=== PATIENT | female | born 1930 | race African-American/Black ===

== ENCOUNTER 2017-04-29 16:45 | Inpatient (IN) | payer MEDICARE, MEDICAID ==
[2017-04-29 18:04] LABS: Hemoglobin 10.7 g/dL (12.0-16.0); Mean Corpuscular Hemoglobin 27.1 pg (27.0-31.0); Mean Corpuscular Volume 84.6 fl (81.0-99.0); RBC Distribution Width 12.7 % (11.5-14.5); Red Blood Cell (RBC) Count 3.97 mill/uL (4.20-5.40); White Blood Cell (WBC) Count 3.7 thou/uL (4.8-10.8)
[2017-04-29 18:25] LABS: #Lymphocytes 0.6 thou/uL (1.20-3.40); #Monocytes 0.3 thou/uL (0.11-0.59); #Neutrophils 2.8 thou/uL (1.40-6.50); %Eosinophils 0.3 % (0.0-10.0); %Lymphocytes 16.2 % (21.0-51.0); %Neutrophils 76.6 % (42.0-75.0); Hypochromia SLIGHT = 6-15 cells (100X) (0-5/hpf); MDiff Complete? YES; Mean Platelet Volume 10.6 fL (7.4-10.4); Ovalocytes SLIGHT = 2-5 cells (100X) (0-1/hpf); PLT Morphology Comment Appears Decreased; Platelet Count 96 thou/uL (130-400)
[2017-04-29 18:31] LABS: Anion Gap 13 mmol/L (10-20); BUN (Urea Nitrogen) 52 mg/dL (9.8-20.1); Calc. Creatinine Clearance 0 mL/min (70-130); Calcium 9.3 mg/dL (7.8-10.44); Carbon Dioxide 23 mmol/L (23-31); Chloride 98 mmol/L (98-107); Estimated GFR-MDRD 41; Glucose 137 mg/dL (83-110); Potassium 4.3 mmol/L (3.5-5.1); Sodium 130 mmol/L (136-145)
[2017-04-29 18:32] LABS: CKMB 5.8 ng/mL (0-6.6); Troponin I 0.049 ng/mL (< 0.028)
[2017-04-29] MEDS ORDERED: Dextrose 50% Abboject 50 ML SYRINGE SLOW IVP PRN (19:00)
[2017-04-29] MEDS ORDERED: Ondansetron HCl/PF 4 MG/2 ML Vial IVP PRN (19:00)
[2017-04-29] MEDS ORDERED: Dextrose 5% in Water 1,000 ML IV PRN (19:00)
[2017-04-29] MEDS ORDERED: hydrALAZINE 20 MG/ML VIAL SLOW IVP PRN (19:00)
[2017-04-29] MEDS ORDERED: Ondansetron ODT 4 MG TAB PO PRN (19:00)
[2017-04-29] MEDS ORDERED: traMADol HCl 50 MG TAB PO PRN (19:06)
[2017-04-29] MEDS ORDERED: traMADol HCl 50 MG TAB PO SCH (19:15)
[2017-04-29] MEDS ORDERED: Fentanyl 100 MCG/2 ML VIAL ONE (19:43)
--- NOTE | 2017-04-29 19:57 | CT ---
CT PELVIS NONCONTRAST 04/29/17 HISTORY: Fall. Pelvic injury. FINDINGS: Mildly comminuted nondisplaced fracture of the anterior wall of the right acetabulum is apparent. Min imally displaced fracture of the left pubic rami extends to the far medial margin of the superior pub ic ramus to the pubic symphysis and obliquely through the left inferior pubic ramus. There is one richar f shaft width displacement of a right inferior pubic ramus fracture. Degenerative changes involving the hips. There is calcification in the arterial structures. IMPRESSION: 1. Fractures involving the right and left pubic rami and anterior wall right acetabulum, as deta iled above. 2. Atherosclerosis. POS: [facility]
--- NOTE | 2017-04-29 20:31 | RAD ---
CHEST ONE VIEW 04/29/17 HISTORY: Chest pain. Pelvic fractures. Fall. FINDINGS: No comparison. The cardiac silhouette and pulmonary vasculature are unremarkable. Mediastinum is midline with aortic calcification. Lungs are hyperinflated. Old injury of the left humeral neck is suspected. No evidenc e of pneumothorax. A nondisplaced fracture involves the posterolateral aspect of the right seventh ri b. emergency operator leads overlie the chest. IMPRESSION: 1. Right rib fracture. No evidence of pneumothorax. 2. COPD. 3. Atherosclerosis. POS: [facility]
--- NOTE | 2017-04-29 21:07 | HP ---
DATE OF ADMISSION: 04/29/2017 ATTENDING: Dr. Rubin Tamez. CONSULTING PHYSICIAN: Dr. Dave Finney. CHIEF COMPLAINT: Evaluation of hip pain, status post fall. HISTORY OF PRESENT ILLNESS: The patient is an 86-year-old female who reportedly slipped on the floor yesterday. She denies having any loss of consciousness. She denies head injury. She reports landing on her side and being taken by her son to [place], where imaging revealed a single-rib fracture. Patient was discharged home and awoke this morning being unable to walk. She was brought to the [place] ED by family and found to have bilateral pubic rami fractures and right acetabular fracture. Orthopedic Surgery was consulted and trauma services asked to admit. Currently, the patient reports that her pain is 4/10, worse on the right. She is unable to move her legs without significant difficulty and pain. She denies radiating pain. She describes the pain as dull and achy. PAST MEDICAL HISTORY: Significant for hypertension and atrial fibrillation on warfarin. HOME MEDICATIONS: The only home medication reported was warfarin. Patient unable to report any other home medications. PAST SURGICAL HISTORY: Patient had an open reduction and internal fixation of right clavicle fracture, some years ago. The date is unclear. No other previous surgeries were reported. FAMILY HISTORY: Noncontributory. SOCIAL HISTORY: Patient denies ethyl alcohol use. She does report a remote 30- pack-year history of smoking, but quit 15 years ago. She does not do drugs. Lives with her son in a 1-story dwelling. ALLERGIES: Patient does not report any known drug allergies. REVIEW OF SYSTEMS: A 10-point review of systems was significant for the following occasional headaches, cataracts, shortness of breath occasionally, occasional lightheadedness, urinary frequency, and muscle cramps. PHYSICAL EXAMINATION: VITAL SIGNS: BP 139/58, pulse 70, respirations 18, temperature 97.9, O2 sat 98 % on room air. GENERAL APPEARANCE: Patient is an elderly -Trist[place] female resting in bed in no acute distress. HEENT: She is normocephalic and atraumatic. Eyes, her pupils are unequal. Her right pupil is oblong in shape, but reactive to light. Her left pupil is round approximately 2 mm and reactive to light as well. All extraocular muscles are intact. She has a prominent arcus senilis bilaterally. Ears, her external auditory canals are atraumatic. Nose, her nares are patent without blood or discharge. Oropharynx, her dentition is intact. Oropharynx is pink and moist without trauma. NECK: Her trachea is midline. She has no tenderness. RESPIRATORY: She has clear breath sounds bilaterally with normal effort. CARDIOVASCULAR: She has a regular rate and rhythm with normal S1 and S2 and no murmurs, gallops, or rubs. Her radial and distal pulses are both 2+ bilaterally. ABDOMEN: She is soft, nontender, nondistended. Her bowel sounds are somewhat hypoactive. EXTREMITIES: She is neurovascularly intact x4 and moves all extremities appropriately. Her physicians and surgeons strength is 5/5 bilaterally in her upper extremities, great toe strength is 5/5 bilaterally. NEUROLOGIC: Patient is alert and oriented x3. She does appear to have some mild cognitive impairment. Her GCS is 15. LABORATORY FINDINGS: Cardiac panel: CK-MB 5.8, troponin I 0.049. Chemistry: Sodium 130, potassium 4.3, chloride 98, bicarbonate 23, BUN 52, creatinine 1.25 , glucose 137, calcium 9.3. Hematology: White blood cells 3.7, hemoglobin 10.7 , hematocrit 33.6, platelets 96. RADIOGRAPHIC FINDINGS: Chest x-ray does appear to show a single right rib fracture. No other acute processes identified by my read. Official read pending. CT of the pelvis shows a left and right pubic rami fracture and right acetabular fracture. Official read also pending. ASSESSMENT AND PLAN: 1. Status post fall. 2. Bilateral pubic rami fractures. 3. Right acetabular fracture. 4. Elevated troponins. 5. Elevated creatinine. PLAN: Patient's fractures are nonoperative per Orthopedic consultation. Patient will be admitted to telemetry for monitoring given her elevated cardiac enzymes. She will be given fluids, and NSAIDs will be withheld while we tracked her kidney function. This patient will likely be a rehab candidate, so rehab screen will be ordered and PT and OT will be requested to help her with mobilization. Case management will be involved in discharge planning. This patient was discussed over the phone with Dr. Rubin Tamez who agrees with this assessment and plan. [facility]
[2017-04-29] MEDS: Acetaminophen 500 MG TAB PO SCH (21:40)
[2017-04-29 21:52] LABS: Troponin I 0.048 ng/mL (< 0.028)
[2017-04-30 00:40] LABS: CKMB 5.1 ng/mL (0-6.6); Troponin I 0.063 ng/mL (< 0.028)
[2017-04-30] MEDS: traMADol HCl 50 MG TAB PO SCH ×3 (00:58→12:42)
[2017-04-30 01:14] VITALS: BMI 20.4
[2017-04-30] MEDS: Acetaminophen 500 MG TAB PO SCH ×3 (03:18→14:53)
[2017-04-30 05:56] LABS: #Eosinphils 0.1 thou/uL (0.0-0.7); #Lymphocytes 0.6 thou/uL (1.20-3.40); #Monocytes 0.3 thou/uL (0.11-0.59); #Neutrophils 2.5 thou/uL (1.40-6.50); %Basophils 0.4 % (0.0-1.0); %Eosinophils 1.5 % (0.0-10.0); %Lymphocytes 18.1 % (21.0-51.0); %Monocytes 8.3 % (0.0-10.0); %Neutrophils 71.7 % (42.0-75.0); Hemoglobin 9.7 g/dL (12.0-16.0); INR-International Normal Ratio 3.4; Mean Corpuscular HGB CONC 31.8 g/dL (32.0-36.0); Mean Corpuscular Hemoglobin 27.2 pg (27.0-31.0); Mean Corpuscular Volume 85.4 fl (81.0-99.0); Mean Platelet Volume 10.9 fL (7.4-10.4); Platelet Count 99 thou/uL (130-400); Prothrombin Time 35.8 SEC (12.0-14.7); RBC Distribution Width 12.6 % (11.5-14.5); Red Blood Cell (RBC) Count 3.55 mill/uL (4.20-5.40); White Blood Cell (WBC) Count 3.5 thou/uL (4.8-10.8)
[2017-04-30 06:17] LABS: Anion Gap 13 mmol/L (10-20); BUN (Urea Nitrogen) 46 mg/dL (9.8-20.1); Calc. Creatinine Clearance 37 mL/min (70-130); Calcium 8.6 mg/dL (7.8-10.44); Carbon Dioxide 21 mmol/L (23-31); Chloride 98 mmol/L (98-107); Estimated GFR-MDRD 55; Glucose 114 mg/dL (83-110); Magnesium 2.2 mg/dL (1.6-2.6); Phosphorus 3.4 mg/dL (2.3-4.7); Potassium 3.5 mmol/L (3.5-5.1); Sodium 128 mmol/L (136-145)
[2017-04-30 06:20] LABS: CKMB 4.1 ng/mL (0-6.6); Troponin I 0.061 ng/mL (< 0.028)
[2017-04-30] MEDS ORDERED: Sodium Chloride 0.9% 1,000 ML IV SCH (06:45)
--- NOTE | 2017-04-30 11:40 | CON ---
DATE OF CONSULTATION: 04/30/2017 CONSULTING PHYSICIAN: Dr. Dave Finney HISTORY OF PRESENT ILLNESS: We were asked by Trauma and ER to see the patient. The patient fell yes terday and was seen at [facility] and found to have a fractured rib. She awoke the next morning a nd was unable to walk. Family was concerned and brought her to [facility] and imaging found she had pelvic fractures. I spoke with family at the bedside and the patient. She has fallen 3-4 times in t he last couple of years. Once with a fracture, a couple times with just bruises, now this time with rib and a pelvis fractures. She denies any loss of consciousness. She did not hit her head. She th inks that she just had on some socks without on drapery sewer hand on the bottom and she slipped and fell. She saeed s not had any bone health workup in the past that she or her family can recall. PAST MEDICAL HISTORY: Positive for hypertension and atrial fibrillation. CURRENT MEDICATIONS: Warfarin, metoprolol, nifedipine. ALLERGIES: No known drug allergies. FAMILY HISTORY: Noncontributory. PAST SURGICAL HISTORY: ORIF right clavicle fracture. SOCIAL HISTORY: No alcohol use, quit smoking 15 years ago. REVIEW OF SYSTEMS: She is a little short of breath due to the rib fracture, but she is using her inc entive spirometry well and then she just has pain in her pelvis with movement. No movement she is ab le to tolerate the pain well. PHYSICAL EXAMINATION: GENERAL: Well-nourished, well-developed, very sweet female resting in bed with family at the bedside , in no acute distress. HEENT: Normal exam. Face symmetric, tongue midline. NECK: Supple, trachea midline. EXTREMITIES: Upper extremities; equal size, shape symmetry, normal bulk and tone. Sensation is inta ct. Lower extremity; she is moving both lower extremities fair. Rocking her pelvis does cause signi ficant pain. Lower extremities, sensations equal. ASSESSMENT: 1. Fall. 2. Bilateral pubic rami fractures with a right acetabular fracture. PLAN: Currently, the patient needs no orthopedic intervention. We will allow her to ambulate with P T, OT, weightbearing as tolerated. I do think the patient would be a good rehab or skilled candidate to get over this evolution and pain control and the family agrees. We will check in on patient whil e she is in the hospital and if further aches and pains arise, we will address those as they come.
[2017-04-30 16:49] VITALS: BP 124/62; TEMP 97
[2017-04-30 17:09] LABS: Bilirubin Negative (Negative); Blood, Urine Small (Negative); Clarity CLOUDY (Clear); Glucose, Urine (Dipstick) Negative (Negative); Leukocyte Large (Negative); Nitrite Negative (Negative); Protein, Urine (Dipstick) Negative (Neg-Trace); Specific Gravity, Urine 1.015 (1.002-1.036); Urobilinogen 0.2 mg/dL (0.2-1.0); pH, Urine 5.5 (5.0-9.0)
[2017-04-30 17:19] LABS: Bacteria/HPF 4+ HPF (None Seen); Hyaline Casts/LPF 4-6 HYALINE CAST LPF (0-3 Hyaline); Pathc Cast-AUWi Flag 0.54 (0-2.49); RBC/HPF 0-3 HPF (0-3); Squamous Epithelial None Seen HPF (0-3)
--- NOTE | 2017-05-01 02:18 | DIS ---
DATE OF ADMISSION: 04/29/2017 DATE OF DISCHARGE: 04/30/2017 ADMITTING PHYSICIAN: Dr. Rubin Tamez. DISCHARGING PHYSICIAN: Dr. Rubin Tamez. CONSULTING PHYSICIAN: Dr. Dave Finney. CHIEF COMPLAINT: Evaluation of hip pain, status post fall. HOSPITAL COURSE: Patient is an 86-year-old female who reportedly slipped on the floor, landing on he r side. She was initially taken to [place], where she was diagnosed with a single right rib fracture. Patient was having if difficulty ambulating afterwards in the next morning awoke and found herself unable to walk due to pain. She was brought to [place] ED by family and found to have bi lateral pubic rami fractures and right acetabular fracture. Orthopedic surgery was consulted and tra [facility] service was asked to admit. Ultimately, the patient's orthopedic injuries were determined to be nonoperative. The patient also had a history of chronic atrial fibrillation on warfarin. She presen becka to the ED with elevated troponin of 0.049. These were trended serial and are reached to max valu e at 0.063 approximately 6 hours after the initial lab draw. Patient was admitted to telemetry [facility] for monitoring and pain control as well. Patient was discharged to inpatient rehab in [facility] on 04/30/2017. However, it was reported that patient had some urinary retention after discha rge orders that had already been placed and transportation was already on the scene to transfer the p atient to rehabilitation. Patient was ultimately determined that she would need a Manzano and urinalys is revealed that she had a UTI. This was communicated to the staff at [facility] who ag melanie to place the Manzano over there. DISCHARGE MEDICATIONS: Patient was discharged with all of her inpatient medications except warfarin. Dr. Tamez discussed this case over the phone with her primary care physician, Dr. Rivas Yañez at the [facility]. The agreement was that the risk of catastrophic bleeding with subsequent falls outw eighed the risk of blood clots with discontinued anticoagulation. ACTIVITY INSTRUCTIONS: Patient has orthopedic limitations including weightbearing as tolerated on bi lateral lower extremities. NOURISHMENT INSTRUCTIONS: Patient was discharged with a regular diet. THERAPY INSTRUCTIONS: Patient to receive occupational therapy, physical therapy, and outpatient card iac rehabilitation. FOLLOWUP INSTRUCTIONS: Patient is to follow up with her primary care physician in 7 days after disch arge from rehabilitation. The patient also instructed to follow up with Dr. Dave Finney in 3-4 weeks after discharge from rehabilitation. This patient was seen and examined along with Dr. Rubin Tamez who agrees with this discharge plan.
--- NOTE | 2017-05-02 13:10 | EKG ---
Test Reason : Blood Pressure : / mmHG Vent. Rate : 073 BPM Atrial Rate : 073 BPM P-R Int : 156 ms QRS Dur : 100 ms QT Int : 442 ms P-R-T Axes : 067 -09 086 degrees QTc Int : 486 ms Normal sinus rhythm Normal ECG Baseline Artifact Present Confirmed by GIANLUCA ANN ([id number]), multimedia editor KURT PUGH ([id number]) on 05/02/2017 1:09:31 PM Referred By: SETH Confirmed By:GIANLUCA ANN
== END 2017-04-30 16:10 | DRG 535 ==
LOC: ERS 16:45 → 2NO 19:12
PROVIDERS: ADMIT Specialist; ATTEND Specialist
DX: S32.501A Unspecified fracture of right pubis, initial encounter for closed fracture (principal); S32.411A Displaced fracture of anterior wall of right acetabulum, initial encounter for closed fracture; I48.2 Chronic atrial fibrillation; N39.0 Urinary tract infection, site not specified; S22.31XA Fracture of one rib, right side, initial encounter for closed fracture; S32.502A Unspecified fracture of left pubis, initial encounter for closed fracture; Z79.01 Long term (current) use of anticoagulants; I10 Essential (primary) hypertension; R94.4 Abnormal results of kidney function studies
CPT/HCPCS: 36415; 71045; 72192; 80048; 81001; 82553; 83735; 84100; 84484; 85025; 85610; 86850; 86900; 86901; 87077; 87086; 87186; 93005; 94640; 96374; G8978-GP-CM; G8979-GP-CI; G8987-GO-CL; G8988-GO-CJ; J2405; J3010; J7620

== ENCOUNTER 2017-05-01 18:26 | Emergency (ER) | payer MEDICARE ==
[~2017-05-01 18:26] MED LIST: ISOVUE-370 76%-LOCM 1 ML ONE
[2017-05-01 19:05] LABS: #Lymphocytes 0.4 thou/uL (1.20-3.40); #Monocytes 0.3 thou/uL (0.11-0.59); #Neutrophils 7.2 thou/uL (1.40-6.50); %Lymphocytes 5.3 % (21.0-51.0); %Monocytes 3.8 % (0.0-10.0); %Neutrophils 90.9 % (42.0-75.0); Hemoglobin 9.9 g/dL (12.0-16.0); Mean Corpuscular HGB CONC 33.1 g/dL (32.0-36.0); Mean Corpuscular Hemoglobin 27.6 pg (27.0-31.0); Mean Corpuscular Volume 83.4 fl (81.0-99.0); Mean Platelet Volume 10.1 fL (7.4-10.4); Platelet Count 99 thou/uL (130-400); RBC Distribution Width 12.8 % (11.5-14.5)
[2017-05-01 19:33] LABS: ALT (SGPT) 24 U/L (8-55); AST (SGOT) 59 U/L (5-34); Albumin 3.7 g/dL (3.4-4.8); Alkaline Phosphatase 50 U/L (40-150); Anion Gap 17 mmol/L (10-20); BUN (Urea Nitrogen) 31 mg/dL (9.8-20.1); Bilirubin, Total 0.5 mg/dL (0.2-1.2); CK (CPK) 1166 U/L (29-168); CKMB 2.2 ng/mL (0-6.6); Calc. Creatinine Clearance 0 mL/min (70-130); Calcium 8.5 mg/dL (7.8-10.44); Carbon Dioxide 20 mmol/L (23-31); Chloride 99 mmol/L (98-107); Estimated GFR-MDRD 65; Globulin 3.6 g/dL (2.4-3.5); Glucose 219 mg/dL (83-110); Magnesium 1.8 mg/dL (1.6-2.6); Potassium 4.1 mmol/L (3.5-5.1); Protein, Total 7.3 g/dL (6.0-8.3); Sodium 132 mmol/L (136-145)
[2017-05-01] MEDS ORDERED: Azithromycin 500 MG VIAL ONE (22:02)
--- NOTE | 2017-05-01 22:21 | RAD ---
PORTABLE AP CHEST X-RAY 05/01/17 HISTORY: Chest pain. Syncope episode this afternoon. Atrial fibrillation with RVR. COMPARISON: 04/29/17 FINDINGS: The cardiac silhouette is magnified by projection. Pulmonary vasculature is within normal limits. The re is mild increased interstitial densities bilaterally, some of which is related to chronic lung cody nge, there is greater hazy density at the right lung base which could be related to developing area o f pneumonia/pneumonitis. Fractures involving the posterior right sixth and seventh ribs is again pres ent. Diffuse osteopenia is noted. Vascular calcification seen in the thoracic aorta. IMPRESSION: 1. Mild increased density at the right lung base which may be related to developing pneumonia or pneumonitis. Followup to resolution is recommended. 2. Fractures involving the posterior right sixth and seventh ribs. 3. Diffuse osteopenia. POS: [facility]
--- NOTE | 2017-05-01 23:29 | CT ---
CT ANGIOGRAM THORAX WITH IV CONTRAST AND 3D RECONSTRUCTIONS 05/01/17 HISTORY: Dyspnea, syncope. Recent fall with hip and rib fractures. Increased heart rate and atrial fibrillatio n with RVR. COMPARISON: None available. FINDINGS: The left lobe of the thyroid gland is heterogeneous in appearance and enlarged measuring 3.4 cm x 2.6 cm. This may represent an enlarged heterogeneous thyroid nodule or multiple nodules within the left lobe of the thyroid gland. This cannot be further characterized on this exam. No filling defects are seen in the pulmonary arteries to suggest a pulmonary embolus. Vascular calcifications are seen in the coronary arteries as well as the thoracic aorta. The thoracic aorta is normal in caliber without evidence of an aortic dissection. There is consolidation involving a large portion of the right lower lobe which may represent pneumoni a or aspiration pneumonitis. There is increased soft tissue density in the right hilar region likely related to reactive lymphadenopathy. There are filling defects within several right lower lobe bronch i. Mild increased interstitial densities are seen in the posterior aspect of the right upper lobe which could be related to infectious or inflammatory process. Emphysematous changes are seen within the lungs bilaterally. There is pleural and parenchymal scarrin g at the left lung apex. Minimal atelectasis is present at the left lung base. There is a parenchymal density seen at the lateral aspect left lung base which could be related to either focal area of pne umonitis or atelectasis. The upper abdomen demonstrates grossly normal CT appearance. There are minimally displaced fractures involving the lateral right 5th through 8th ribs. IMPRESSION: 1. Enlarged heterogeneous left lobe of the thyroid gland. This may represent multiple nodules in the left lobe of the thyroid gland versus a large heterogeneous mass. Nonemergent thyroid ultrasound is suggested for further evaluation as clinically indicated. 2. Consolidation in the right lower lobe with associated interstitial densities. These findings may be related to pneumonia. Aspiration pneumonitis is a possibility. There are filling defects withi n several right lower lobe bronchi which suggests possibility of aspiration. 3. COPD and chronic lung changes. 4. No CT evidence of a pulmonary embolus. 5. Vascular calcifications in the thoracic aorta. 6. Fractures involving the right lateral 5th through 8th ribs. 1. POS: [facility]
--- NOTE | 2017-05-02 15:37 | EKG ---
Test Reason : Blood Pressure : / mmHG Vent. Rate : 108 BPM Atrial Rate : 108 BPM P-R Int : 156 ms QRS Dur : 086 ms QT Int : 336 ms P-R-T Axes : 053 -16 052 degrees QTc Int : 450 ms Sinus tachycardia Nonspecific ST and T wave abnormality Abnormal ECG Confirmed by NIKOLE VALDIVIA, ASHER Marcial ([id number]), fashion editor KURT PUGH ([id number]) on 05/02/2017 3:37:52 PM Referred By: Confirmed By:ASHER AGUSTIN MD
== END 2017-05-02 02:26 ==
LOC: ERS 18:26
DX: J18.9 Pneumonia, unspecified organism (principal); I48.91 Unspecified atrial fibrillation; I10 Essential (primary) hypertension; K59.00 Constipation, unspecified; Z87.891 Personal history of nicotine dependence; Z79.891 Long term (current) use of opiate analgesic; Z79.899 Other long term (current) drug therapy
CPT/HCPCS: 36415; 71045; 71275; 82553; 83735; 83880; 84484; 85379; 87040; 93005; J0456; J0696

== ENCOUNTER 2017-05-05 10:24 | Inpatient (IN) | payer MEDICARE ==
[2017-05-05 11:29] LABS: INR-International Normal Ratio 2.5; Prothrombin Time 28.1 SEC (12.0-14.7)
[2017-05-05 11:32] LABS: ALT (SGPT) 48 U/L (8-55); AST (SGOT) 67 U/L (5-34); Albumin 3.1 g/dL (3.4-4.8); Alkaline Phosphatase 54 U/L (40-150); Anion Gap 14 mmol/L (10-20); BUN (Urea Nitrogen) 24 mg/dL (9.8-20.1); Bilirubin, Total 0.7 mg/dL (0.2-1.2); CK (CPK) 1152 U/L (29-168); Calc. Creatinine Clearance 0 mL/min (70-130); Calcium 8.8 mg/dL (7.8-10.44); Carbon Dioxide 22 mmol/L (23-31); Chloride 103 mmol/L (98-107); Estimated GFR-MDRD 82; Globulin 3.7 g/dL (2.4-3.5); Glucose 147 mg/dL (83-110); PTT 56.8 SEC (22.9-36.1); Potassium 4.2 mmol/L (3.5-5.1); Protein, Total 6.8 g/dL (6.0-8.3); Sodium 135 mmol/L (136-145)
[2017-05-05 11:47] LABS: #Lymphocytes 1.1 thou/uL (1.20-3.40); #Monocytes 0.9 thou/uL (0.11-0.59); #Neutrophils 12.5 thou/uL (1.40-6.50); %Basophils 0.2 % (0.0-1.0); %Eosinophils 0.1 % (0.0-10.0); %Lymphocytes 7.3 % (21.0-51.0); %Monocytes 6.2 % (0.0-10.0); %Neutrophils 86.2 % (42.0-75.0); Hemoglobin 5.6 g/dL (12.0-16.0); Mean Corpuscular HGB CONC 32.4 g/dL (32.0-36.0); Mean Corpuscular Hemoglobin 27.8 pg (27.0-31.0); Mean Corpuscular Volume 85.9 fl (81.0-99.0); Mean Platelet Volume 8.4 fL (7.4-10.4); Platelet Count 282 thou/uL (130-400); RBC Distribution Width 13.1 % (11.5-14.5); Red Blood Cell (RBC) Count 2.01 mill/uL (4.20-5.40); White Blood Cell (WBC) Count 14.5 thou/uL (4.8-10.8)
[2017-05-05 12:09] LABS: CKMB 6.5 ng/mL (0-6.6); Troponin I 0.022 ng/mL (< 0.028)
[2017-05-05] MEDS ORDERED: Piperacillin/Tazobactam 4.5 GM in Sodium Chloride 0.9% 100 ML IVPB ONE (12:45)
[2017-05-05] MEDS ORDERED: Acetaminophen 325 MG TAB PO PRN (13:22)
[2017-05-05] MEDS ORDERED: Milk Of Magnesia 30 ML UDCUP PO PRN (13:22)
[2017-05-05] MEDS ORDERED: HYDROcodone/Acetaminophen 5/325 mg Tablet PO PRN (13:22)
[2017-05-05] MEDS ORDERED: Ondansetron HCl/PF 4 MG/2 ML Vial IVP PRN (13:22)
[2017-05-05] MEDS ORDERED: Fleet Enema 133 ML BOT PR PRN (13:22)
[2017-05-05] MEDS ORDERED: Artificial Tears 18 DROP/0.9 ML EA EYE PRN (13:22)
[2017-05-05] MEDS ORDERED: Eucerin (Mineral Oil/Petrolatum,White) 30 gm Jar TOP PRN (13:22)
[2017-05-05] MEDS ORDERED: Diabetic Tussin 200 MG/10 ML UDCUP PO PRN (13:22)
[2017-05-05] MEDS ORDERED: Chloraseptic Spray 180 ml Bottle PO PRN (13:22)
[2017-05-05] MEDS ORDERED: Mag-Al 1200 mg/1200 mg/30 ML UDCUP PO PRN (13:22)
[2017-05-05] MEDS ORDERED: Bisacodyl 10 MG SUPP PR PRN (13:22)
[2017-05-05] MEDS ORDERED: Ondansetron ODT 4 MG TAB PO PRN (13:22)
[2017-05-05] MEDS ORDERED: Senokot 8.6 MG TAB PO PRN (13:22)
[2017-05-05] MEDS ORDERED: hydrALAZINE 20 MG/ML VIAL SLOW IVP PRN (13:22)
[2017-05-05] MEDS ORDERED: Sodium Chloride 0.65% Nasal 44 ML BOT EA NARE PRN (13:22)
[2017-05-05] MEDS ORDERED: Loratadine 10 MG TAB PO PRN (13:22)
[2017-05-05] MEDS ORDERED: Phytonadione 10 MG/ML AMP SC SCH ×2 (13:30→15:45)
[2017-05-05] MEDS ORDERED: Digoxin 0.5 MG/2 ML AMP SLOW IVP SCH (13:45)
--- NOTE | 2017-05-05 14:15 | CT ---
CT ABDOMEN AND PELVIS WITH CONTRAST: Date: 05/05/17 Multiple axial tomograms obtained through the abdomen and pelvis with IV enhancement. HISTORY: Anemia. Post pelvic fracture. COMPARISON: Comparison made to CT of pelvis dated 04/29/17, which revealed fractures involving the anterior right acetabulum and bilateral rami fractures. Also, comparison to chest CT of 05/01/17, which revealed de nse consolidation in the right lung base. That exam also revealed right lateral rib fractures of ribs 5-8. FINDINGS: Images through the lung bases again show dense consolidation in the posterior right lung base, simila r to the 05/01/17 exam. Mild atelectatic change in the posterior left lung base. Liver, spleen, and pancreas are unremarkable. Kidneys are unremarkable. Small bowel loops are normal. Stool throughout the colon. Aorta normal caliber with atherosclerotic calcification. Gallbladder is mildly distended with mild increased gallbladder density. This could represent dense s ludge. No focal fluid collection or hematoma seen in the abdomen or pelvis. Images through the pelvis show an unremarkable uterus and adnexa for age. The bladder has a Manzano cat heter in place, but is mildly distended, and the catheter may not be draining adequately. Fracture of the anterior right acetabulum is again noted without significant change from prior exam. Fracture of the right inferior ramus shows no significant change. Fracture of the left superior and i nferior rami show no significant change. There is no evidence of muscular hematoma surrounding any of these pelvic fractures. IMPRESSION: 1. Dense consolidation in the posterior right lung base, similar to exam of 05/01/17. 2. No evidence of focal hematoma or fluid collection. 3. Gallbladder is mildly distended with mild increased gallbladder density. 4. The pelvic fractures are again seen without significant interval change in appearance. POS: [facility]
--- NOTE | 2017-05-05 14:28 | HP ---
PRIMARY CARE PHYSICIAN: Dr. Rivas Yañez in [place]. REASON FOR ADMISSION: Severe symptomatic anemia, GI bleed, and pneumonia. HISTORY OF PRESENT ILLNESS: An 86-year-old female who lives at home with her son. She has underlyin g history of paroxysmal atrial fibrillation and she is on chronic anticoagulation with warfarin thera py as well as aspirin. She had episode of fall at home on 04/28/2017. The patient had syncopal epis ode as well which was witnessed at home. Patient was recovered consciousness, but she was very weak. She fell down and hurt on her right side of chest as well as on her hip. She was taken to local em ergency room on that day and patient was diagnosed with rib fracture. Patient was discharged from [facility] Emergency Room to home, but at home she was having a lot of pain in her rib as well as on hip and she was having difficulty ambulating and she was feeling very weak and that is why next day, patient's family member brought her to [facility] and patient had CT pelvis and f ound with pubic rami fracture. The patient was not meeting criteria for admission and patient was di scharged from emergency room to rehab on 04/29/2017. Patient was discharged to rehab and subsequentl y she came back on next day with a syncopal episode at rehab and she was having chest pain and that i s why in the emergency room, CT angio was done which was negative for pulmonary embolism, but it did show consolidation on the right lower lobe and patient was started on antibiotic therapy at [facility]. Last night, the patient was having overall generalized weakness. She was not able to swallow and selwyn t is why speech therapy was consulted. When speech therapy came and they did routine blood test toda y and her hemoglobin was found 5.6 and that is why she was sent to emergency room again today for jana luation. Prior to fall, patient was able to function very well without any problem. She had black tarry diarr hea on 04/29/2017, which was also noticed by patient's another son at home. Since then, patient does not have any bowel movement and wanted to rehabilitation. The patient does have epigastric pain. S he does not have any hematemesis or nausea or vomiting, but her appetite is reduced lately. REVIEW OF SYSTEMS: The following complete review of systems was negative, unless otherwise mentioned in the HPI or below: Constitutional: Weight loss or gain, ability to conduct usual activities. Skin: Rash, itching. Eyes: Double vision, pain. ENT/Mouth: Nose bleeding, neck stiffness, pain, tenderness. Cardiovascular: Palpitations, dyspnea on exertion, orthopnea. Respiratory: Shortness of breath, wheezing, cough, hemoptysis, fever or night sweats. Gastrointestinal: Poor appetite, abdominal pain, heartburn, nausea, vomiting, constipation, or diarr hea. Genitourinary: Urgency, frequency, dysuria, nocturia. Musculoskeletal: Pain, swelling. Neurologic/Psychiatric: Anxiety, depression. Allergy/Immunologic: Skin rash, bleeding tendency. Please see my HPI for pertinent positive and negative. All other review of systems reviewed and nega tive except as mentioned in the HPI. ALLERGIES: No known drug allergy. CURRENT HOME MEDICATIONS: Aspirin 81 mg p.o. daily, Toprol-XL 50 mg p.o. daily, Procardia-XL 60 mg p .o. daily, tramadol p.r.n. basis. Patient was on warfarin prior to admission, but that medication wa s discontinued since she was at rehab. PAST MEDICAL HISTORY: COPD, paroxysmal atrial fibrillation, chronic constipation, and hypertension. PAST SURGICAL HISTORY: Cataract surgery. PAST PSYCHIATRIC HISTORY: Reviewed and negative. SOCIAL HISTORY: Currently, patient is from rehabilitation, but she used to live with family member, patient's son. She is a former smoker, but she quit smoking about 15 years ago. She denies any alco hol abuse. She denies any other illicit drug abuse. FAMILY HISTORY: No strong family history of premature coronary artery disease, stroke or cancer. EMERGENCY ROOM COURSE: Patient has received Zosyn, IV fluid and the patient is receiving blood trans fusion. Patient also received Levaquin 750 mg. PHYSICAL EXAMINATION: VITAL SIGNS: On arrival, blood pressure 122/64, pulse 125, respiratory rate 26, temperature 99.8, sa turation 95% on 4 liter oxygen, weight 54.4 kilograms. GENERAL: Patient is currently weak, lethargic, no acute distress. HEAD: Normocephalic, atraumatic. EYES: Conjunctivae pale. Pupils round, reactive to light. Extraocular muscle intact. ENT: Pale mucous membranes, no oral lesions, no pharyngeal erythema, no exudate. NECK: Supple, no JVD, no thyromegaly, no carotid bruits. LUNGS: Right lower lobe crackles noted. No wheezing, no rhonchi. Air entry reduced. CARDIAC: S1 and S2 regular, tachycardia, no murmur, no gallop, no rub. ABDOMEN: Patient does have epigastric discomfort on deep palpation. No Seymour sign, no suprapubic t enderness, no peritoneal sign, no guarding, no rigidity, no distention. Bowel sounds present. BACK: Examination unremarkable, no CVA tenderness. EXTREMITIES: Upper extremity passive movements of all joints are normal. Lower extremity passive mo vements of all joints are normal. No edema. Good peripheral pulsation. SKIN: No skin rash. HEMATOLOGICAL SYSTEM: No lymphadenopathy. PSYCHIATRIC: Normal affect. NEUROLOGIC: The patient is moving all 4 limbs. The patient does not have any focal neurological def icit. Motor and sensation within normal limits. Speech normal. IMAGING DATA AND SIGNIFICANT LABORATORY DATA: 1. EKG showing sinus tachycardia, premature atrial complexes, nonspecific ST-T changes in lateral le ads. 2. Chest x-ray consistent with worsening of infiltration bilaterally consistent with pneumonia. 3. Recent CT angio was negative for pulmonary embolism. 4. Recent pelvis CT scan showed pubic rami fracture on the right and left, anterior wall, right acet abulum fracture. 5. CBC: WBC 14.5, hemoglobin 5.6, platelet 282 with left shift. INR 2.5. 6. BMP: Sodium 135, potassium 4.2, chloride 103, carbon dioxide 22, anion gap 14, BUN 22, creatinin e 0.80, calcium 8.8, glucose 147. Lactic acid 1.2. 7. LFT: AST 67, ALT 48, alkaline phosphatase 54, albumin 3.1. CK 1152. BNP 85.4, CK-MB 6.5, tropo ramya I 0.022. ASSESSMENT AND PLAN/IMPRESSION: 1. Syncopal episode followed by fall on 04/28/2017. I am suspecting that on that day, patient had a cute gastrointestinal bleed and hypotension might have caused her syncopal episode, fall, subsequent rib fracture and pelvic fracture. 2. Melanotic stool and diarrhea noted on 04/29/2017 by family member. Her hemoglobin on 04/29/2017 was 10.7 and subsequently her hemoglobin dropped to 9.7 and then 9.1. 3. Rib fracture and pelvic pubic rami fracture, acetabular anterior wall fracture does not require a ny surgical intervention. Orthopedic already evaluated and Trauma Team already evaluated during prev ious admission and now Trauma Team will be notified. We are repeating CT of the abdomen and pelvis i n the emergency room. Patient will need PT, OT, and pain control and eventual placement to rehab aft er discharge. 4. Severe symptomatic anemia. Her hemoglobin has continued to drop. She does not have any bowel mo vement for 4 or 5 days and her guaiac is positive. She was on warfarin and aspirin so most likely sh ro had upper gastrointestinal bleed given her epigastric tenderness. GI will be consulted. We will c ontinue with Protonix 40 mg IV b.i.d. We will transfuse blood to keep hemoglobin around 8-9. We du l monitor hemoglobin and hematocrit every 6 hourly and then we will repeat labs tomorrow. 5. Anemia due to acute blood loss. The patient will be given blood transfusion and we will monitor hemoglobin and hematocrit. Our goal is to keep hemoglobin between 8-9. 6. Coagulopathy. The patient was taking warfarin and I am suspecting her INR would be very high whe n she presented to [facility] [place] given currently INR is 2.5 and she is not on warfarin t herapy. At this point, given her bleeding, we will give her vitamin K tab 10 mg subcutaneously one t harmony dose. 7. Rhabdomyolysis related with fall and patient AST more than ALT also related with rhabdomyolysis. We will continue with IV fluid and we will repeat CK level tomorrow. 8. Hypoalbuminemia related with protein calorie malnutrition. The patient will be given nutritional supplement when patient able to take p.o. 9. Right lower lobe pneumonia, community acquired. This pneumonia was present even previous admissi on as well. We will continue with Zosyn 4.5 gram IV q.6 hourly along with Levaquin 500 mg IV daily a nd Florastor 250 mg p.o. daily. 10. Paroxysmal atrial fibrillation. Currently, patient has sinus tachycardia. We will monitor on t elemetry floor. If heart rate was fast and then we will consider giving her Cardizem drip or digoxin given her low blood pressure. 11. Hypertension, but currently low blood pressure and that is why we will hold on antihypertensive medication. We will resume metoprolol XL and Procardia XL when blood pressure permits. 12. Deep venous thrombosis prophylaxis. Sequential compression device boots only. No Lovenox becau se of gastrointestinal bleed. 13. Gastrointestinal prophylaxis. Patient is kept on Protonix 40 mg IV b.i.d. 14. Code status: The patient is FULL CODE. I spoke with the patient's family member. Patient's da cami Ruth is medical power of groundman. Disposition plan based on clinical course. Once patient is more stabilized, then we will consider di scharging back to rehabilitation for more PT, OT. We will also check urinalysis to rule out urinary tract infection and we will also send urine culture as well. Plan of care discussed with the patient 's family member at bedside in the emergency room.
[2017-05-05] MEDS ORDERED: Piperacillin/Tazobactam 4.5 GM in Sodium Chloride 0.9% 100 ML IVPB SCH (18:00)
[2017-05-05 18:10] LABS: Bilirubin Negative (Negative); Blood, Urine Large (Negative); Clarity CLEAR (Clear); Glucose, Urine (Dipstick) Negative (Negative); Leukocyte Negative (Negative); Nitrite Negative (Negative); Protein, Urine (Dipstick) 30 mg/dL (Neg-Trace); Specific Gravity, Urine 1.019 (1.002-1.036); pH, Urine 7.5 (5.0-9.0)
[2017-05-05 18:12] LABS: Bacteria/HPF None Seen HPF (None Seen); Hyaline Casts/LPF 0-3 HYALINE CAST LPF (0-3 Hyaline); Pathc Cast-AUWi Flag 0.27 (0-2.49); Squamous Epithelial None Seen HPF (0-3); WBC/HPF 0-3 HPF (0-3)
[2017-05-05] MEDS: Sodium Chloride 0.9% 1,000 ML IV SCH (20:27)
[2017-05-05] MEDS: Pantoprazole 40 MG VIAL IVP SCH (20:27)
[2017-05-05] MEDS: Piperacillin/Tazobactam 4.5 GM in Sodium Chloride 0.9% 100 ML IVPB SCH (20:28)
[2017-05-05 22:03] LABS: Hemoglobin 8.1 g/dL (12.0-16.0)
--- NOTE | 2017-05-05 23:53 | CON ---
DATE OF CONSULTATION: 05/05/2017 REQUESTING PHYSICIAN: Dr. Underwood. REASON FOR CONSULTATION: Symptomatic anemia and probable gastrointestinal bleed. HISTORY OF PRESENT ILLNESS: Natalia Napier is an 86-year-old -[place] woman, who has unfortuna tely had an eventful past several weeks. She fell at home on 04/28/2017 after a syncopal episode. She sustained injury to the right side of her chest as well as her hip and was found to have pelvic f ractures. She was discharged to rehabilitation at that time. This was about a week ago. Around selwyn t time, she had a CT angiogram negative for pulmonary embolism, and this was negative for PE, but did show consolidation of the right lower lobe and so she has been on antibiotics at rehabilitation. Ev idently, her Coumadin has been held over the past week. Despite this, she is brought back to the [facility] and readmitted today with complaints of overall weakness and findings of severe worsening anemi a on routine blood draw today. Hemoglobin was found to be 5.6 and this is down from 9 a week ago. T he patient herself cannot tell me about any overt bleeding. There is evidently report that she had a large black stool, maybe a week ago, but that she has not had any other bowel movements for the past several days. She has not had any nausea or vomiting, but when questioned she does endorse some epi gastric pain and her appetite has been reduced recently. It does not appear she takes any nonsteroid al anti-inflammatory drugs that she does take a baby aspirin every day, and until the past week, she was on warfarin. This was evidently discontinued while she was at rehab. She does not take any acid suppression. She has never undergone EGD or colonoscopy. REVIEW OF SYSTEMS: Full review of systems including constitutional, head, eyes, ears, nose, throat, GI, , cardiovascular, respiratory, musculoskeletal, and neurologic systems is negative except as no becka in the HPI. PAST MEDICAL HISTORY: COPD; paroxysmal atrial fibrillation, on warfarin; chronic constipation; hyper tension; cataract surgery. ALLERGIES: No known drug allergies. MEDICATIONS: Aspirin 81 mg daily, Toprol-XL 50 mg daily, Procardia-XL 60 mg daily, tramadol p.r.n. She was on warfarin until about a week ago. SOCIAL HISTORY: She is a former smoker. No alcohol or drug abuse. FAMILY HISTORY: Negative for gastrointestinal illness or malignancy. PHYSICAL EXAMINATION: VITAL SIGNS: Temperature 98.0, pulse 117, blood pressure 155/65, 100% oxygen saturation on 3 liters nasal cannula. GENERAL: Frail 86-year-old woman, sitting up in bed comfortably, in no acute distress. MENTAL: She is alert. She can answer questions regarding her symptoms in binary fashion, but cannot recall much detail of any past events. EYES: No scleral icterus. Extraocular movements intact. ENT: Mucous membranes moist, no oral lesions. SKIN: She is a bit pale, no jaundice, no rash visible or palpable. LYMPH: No submandibular, supraclavicular lymphadenopathy. THYROID: Nontender to palpation. HEART: Irregular tachycardia. LUNGS: Clear to auscultation bilaterally. ABDOMEN: Bowel sounds present, soft, mild tenderness to palpation in the epigastrium, but no guardin g or rebound tenderness. EXTREMITIES: No peripheral edema. VESSELS: Radial pulses 2+ bilaterally. NEUROLOGICAL: Cranial nerves II-XII intact bilaterally. LABORATORY STUDIES: Hemoglobin is 5.6, MCV normal at 85.9, WBC 14.5, platelets 282. INR is 2.5 and this is evidently after having been off Coumadin for the past week. Sodium 135, potassium 4.2, BUN 2 4, creatinine 0.80. Total bilirubin 0.7, alkaline phosphatase 54, AST 67, ALT 48. Creatine kinase i s elevated to 1152. Troponin is negative. Albumin is 3.1. BNP only 85.4. IMAGING STUDIES: CT of the abdomen and pelvis from earlier today demonstrated persistent stable dens e consolidation in the posterior right lung base. No evidence of focal hematoma or fluid collection, mild increased gallbladder density, and unchanged pelvic fractures. ASSESSMENT AND PLAN: 1. Anemia, worsening over the past week. 2. Epigastric pain. 3. Possible melena over the past week. 4. Warfarin coagulopathy. The patient is getting vitamin K and I agree with this. Agree also with transfusion, which is ongoin g as well as the IV PPI 40 mg of Protonix q.12 hours. This does not appear to represent acute active bleeding, but there was a possibility of melena over the past week ,and she certainly has had signif icant hemoglobin decline. Further investigation is certainly warranted. I do think the patient woul d tolerate any bowel prep at this point, and given the epigastric location of the pain and upper chani rointestinal source is suspected. We will plan to perform diagnostic EGD tomorrow assuming the INR h as dropped a bit. Please have the patient n.p.o. after midnight. Further recommendations following endoscopy. Thank you for the consultation. Please call back with questions or concerns.
[2017-05-06 00:20] LABS: Hemoglobin 7.9 g/dL (12.0-16.0)
[2017-05-06] MEDS: Piperacillin/Tazobactam 4.5 GM in Sodium Chloride 0.9% 100 ML IVPB SCH ×4 (02:40→19:58)
[2017-05-06 05:30] LABS: #Lymphocytes 0.8 thou/uL (1.20-3.40); #Monocytes 1.1 thou/uL (0.11-0.59); #Neutrophils 8.3 thou/uL (1.40-6.50); %Basophils 0.2 % (0.0-1.0); %Eosinophils 0.2 % (0.0-10.0); %Lymphocytes 7.8 % (21.0-51.0); %Monocytes 10.9 % (0.0-10.0); %Neutrophils 80.9 % (42.0-75.0); Hemoglobin 7.6 g/dL (12.0-16.0); Mean Corpuscular HGB CONC 33.9 g/dL (32.0-36.0); Mean Corpuscular Hemoglobin 28.2 pg (27.0-31.0); Mean Corpuscular Volume 83.2 fl (81.0-99.0); Mean Platelet Volume 7.8 fL (7.4-10.4); Platelet Count 258 thou/uL (130-400); RBC Distribution Width 14.1 % (11.5-14.5); White Blood Cell (WBC) Count 10.3 thou/uL (4.8-10.8)
[2017-05-06 05:43] LABS: ALT (SGPT) 59 U/L (8-55); AST (SGOT) 93 U/L (5-34); Albumin 2.6 g/dL (3.4-4.8); Alkaline Phosphatase 59 U/L (40-150); Anion Gap 12 mmol/L (10-20); BUN (Urea Nitrogen) 18 mg/dL (9.8-20.1); Bilirubin, Total 1.1 mg/dL (0.2-1.2); CK (CPK) 1905 U/L (29-168); Calc. Creatinine Clearance 56 mL/min (70-130); Calcium 8.3 mg/dL (7.8-10.44); Carbon Dioxide 21 mmol/L (23-31); Chloride 108 mmol/L (98-107); Estimated GFR-MDRD 86; Globulin 3.2 g/dL (2.4-3.5); Glucose 120 mg/dL (83-110); Potassium 3.9 mmol/L (3.5-5.1); Protein, Total 5.8 g/dL (6.0-8.3); Sodium 137 mmol/L (136-145)
[2017-05-06] MEDS ORDERED: FLU VACC TS2017-18 (>65YR) 0.5 ML SYRINGE IM ONE (09:00)
[2017-05-06] MEDS ORDERED: Prevnar 13-Val Conj/PF 0.5 ML SYRINGE IM ONE (09:00)
[2017-05-06] MEDS: Pantoprazole 40 MG VIAL IVP SCH ×2 (09:27→19:58)
[2017-05-06] MEDS: Saccharomyces boulardii 250 MG CAP PO SCH (09:33)
--- NOTE | 2017-05-06 10:16 | PDOC.PN ---
- Subjective Encounter Start Date: 05/06/17 Encounter Start Time: 07:20 -: old records requested/rev Patient seen and examined. No new complaints. No overnight events still has no BM, no fever very weak - Objective Resuscitation Status: Resuscitation Status FULL:Full Resuscitation MAR Reviewed: Yes Vital Signs & Weight: Vital Signs (12 hours) Temp Pulse Pulse Resp BP BP Pulse Ox 05/06/17 08:00 99.2 F 95 20 141/63 H 100 05/06/17 04:00 100.3 F H 106 H 21 H 145/66 H 100 05/06/17 02:36 99.2 F 105 H 18 145/63 H 100 05/06/17 00:00 99.6 F 121 H 20 152/61 H 100 Weight Weight 148 lb I&O: 05/05/17 05/06/17 05/07/17 06:59 06:59 06:59 Intake Total 1350 Output Total 2450 650 Balance -1100 -650 Result Diagrams: 05/06/17 04:40 05/06/17 04:40 EKG Reviewed by me: Yes Phys Exam - Physical Examination Constitutional: NAD HEENT: PERRLA, moist MMs, sclera anicteric Neck: no JVD, supple Respiratory: no wheezing, no rhonchi right base rales Cardiovascular: RRR, no significant murmur, no rub Gastrointestinal: soft, non-tender, no distention, positive bowel sounds Musculoskeletal: no edema, pulses present Neurological: moves all 4 limbs Lymphatic: no nodes Psychiatric: normal affect Skin: no rash, normal turgor Dx/Plan (1) Acute respiratory failure with hypoxemia Code(s): J96.01 - ACUTE RESPIRATORY FAILURE WITH HYPOXIA Status: Acute (2) Anemia due to acute blood loss Code(s): D62 - ACUTE POSTHEMORRHAGIC ANEMIA Status: Acute (3) Coagulopathy Status: Acute (4) Community acquired bacterial pneumonia Code(s): J15.9 - UNSPECIFIED BACTERIAL PNEUMONIA Status: Acute (5) H/O fall Code(s): Z91.81 - HISTORY OF FALLING Status: Acute (6) Pelvic fracture Code(s): S32.9XXA - FRACTURE OF UNSP PARTS OF LUMBOSACRAL SPINE AND PELVIS, INIT Status: Acute (7) Physical deconditioning Code(s): R53.81 - OTHER MALAISE Status: Acute (8) Rhabdomyolysis Code(s): M62.82 - RHABDOMYOLYSIS Status: Acute (9) Sepsis with acute organ dysfunction Code(s): A41.9 - SEPSIS, UNSPECIFIED ORGANISM; R65.20 - SEVERE SEPSIS WITHOUT SEPTIC SHOCK Status: Acute (10) Syncope Code(s): R55 - SYNCOPE AND COLLAPSE Status: Acute (11) Transaminitis Code(s): R74.0 - NONSPEC ELEV OF LEVELS OF TRANSAMNS & LACTIC ACID DEHYDRGNSE Status: Acute (12) Upper GI bleed Code(s): K92.2 - GASTROINTESTINAL HEMORRHAGE, UNSPECIFIED Status: Acute (13) Hypertension Code(s): I10 - ESSENTIAL (PRIMARY) HYPERTENSION Status: Chronic (14) Hypoalbuminemia due to protein-calorie malnutrition Code(s): E46 - UNSPECIFIED PROTEIN-CALORIE MALNUTRITION Status: Chronic (15) Paroxysmal A-fib Code(s): I48.0 - PAROXYSMAL ATRIAL FIBRILLATION Status: Chronic (16) Constipation Code(s): K59.00 - CONSTIPATION, UNSPECIFIED Status: Acute - Plan cont current plan of care, plan discussed w/ family, continue antibiotics, PT/OT , 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 * continue IV fluid and repeat CK tomorrow Review of Systems - Review of Systems Constitutional: fever, weakness. negative: chills, sweats, malaise, other Eyes: negative: Pain, Vision Change, Conjunctivae Inflammation, Eyelid Inflammation, Redness, Other ENT: negative: Ear Pain, Ear Discharge, Nose Pain, Nose Discharge, Nose Congestion, Mouth Pain, Mouth Swelling, Throat Pain, Throat Swelling, Other Respiratory: Cough, Shortness of Breath, SOB with Excertion. negative: Dry, Hemoptysis, Pleuritic Pain, Sputum, Wheezing Gastrointestinal: Constipation. negative: Nausea, Vomiting, Abdominal Pain, Diarrhea, Melena, Hematochezia, Other Genitourinary: negative: Dysuria, Frequency, Incontinence, Hematuria, Retention , Other Musculoskeletal: negative: Neck Pain, Shoulder Pain, Arm Pain, Back Pain, Hand Pain, Leg Pain, Foot Pain, Other Skin: negative: Rash, Lesions, Lars, Bruising, Other - Medications/Allergies Allergies/Adverse Reactions: Allergies Allergy/AdvReac Type Severity Reaction Status Date / Time No Known Drug Allergies Allergy Verified 04/29/17 23:48 Medications: Current Medications Acetaminophen (Tylenol) 650 mg PO Q4H PRN PRN Reason: Headache/Fever or Pain Hydrocodone Bitart/Acetaminophen ([place] 5/325) 1 tab PO Q4H PRN PRN Reason: Moderate Pain (4-6) Al Hydroxide/Mg Hydroxide (Maalox) 30 ml PO Q6H PRN PRN Reason: Heartburn or Indigestion Artificial Tears (Tears Naturale) 0 drop EA EYE PRN PRN PRN Reason: Dry Eyes Bisacodyl (Dulcolax) 10 mg OR Q24H PRN PRN Reason: Constipation Guaifenesin (Robitussin Sf) 200 mg PO Q4H PRN PRN Reason: Cough Hydralazine HCl (Apresoline) 10 mg SLOW IVP Q4H PRN PRN Reason: Systolic BP > 180 Sodium Chloride (Normal Saline 0.9%) 1,000 mls @ 75 mls/hr IV .[id number] [facility] Last Admin: 05/05/17 20:27 Dose: 1,000 mls Levofloxacin 500 mg/ Device 100 mls @ 100 mls/hr IVPB Q24HR [facility] Last Admin: 05/05/17 16:53 Dose: Not Given Piperacillin Sod/Tazobactam (Sod 4.5 gm/ Sodium Chloride) 100 mls @ 200 mls/hr IVPB 0300,0900,1500,2100 [facility] Last Admin: 05/06/17 09:27 Dose: 100 mls Vancomycin HCl 1 gm/ Device 200 mls @ 200 mls/hr IVPB Q24HR [facility] Loratadine (Claritin) 10 mg PO DAILYPRN PRN PRN Reason: Sinus Symptoms Magnesium Hydroxide (Milk Of Magnesium) 30 ml PO DAILYPRN PRN PRN Reason: Constipation Mineral Oil/White Petrolatum (Eucerin Cream) 0 gm TOP BIDPRN PRN PRN Reason: Dry Skin Miscellaneous Medication (Pharmacy To Dose) 1 each IVPB ASDIR [facility] Ondansetron HCl (Zofran Odt) 4 mg PO Q6H PRN PRN Reason: Nausea/Vomiting Ondansetron HCl (Zofran) 4 mg IVP Q6H PRN PRN Reason: Nausea/Vomiting Pantoprazole Sodium (Protonix) 40 mg IVP Q12HR [facility] Last Admin: 05/06/17 09:27 Dose: 40 mg Phenol (Chloraseptic Virgie 180 Ml Bot) 0 ml PO PRN PRN PRN Reason: Sore Throat Saccharomyces Boulardii (Florastor) 250 mg PO DAILY [facility] Last Admin: 05/06/17 09:33 Dose: Not Given Senna (Senokot) 2 tab PO HSPRN PRN PRN Reason: Constipation Sodium Biphosphate/Sodium Phosphate (Fleet Enema) 133 ml OR ONE PRN PRN Reason: Constipation Stop: 05/08/17 13:23 Sodium Chloride ([place] Nasal Virgie 0.65%) 0 ml EA NARE QIDPRN PRN PRN Reason: Nasal Congestion Sodium Chloride (Flush - Normal Saline) 10 ml IVF Q12HR [facility] Last Admin: 05/06/17 09:27 Dose: 10 ml Sodium Chloride (Flush - Normal Saline) 10 ml IVF PRN PRN PRN Reason: Saline Flush
[2017-05-06] MEDS: Vancomycin HCl 1 GM in Premix Bag 1 BAG IVPB SCH (10:45)
[2017-05-06] MEDS ORDERED: Levofloxacin 500 mg/D5W 100 ml Premix Bag ONE (12:47)
[2017-05-06] MEDS ORDERED: Lidocaine 1% PF 5 ML VIAL ONE (14:52)
[2017-05-06] MEDS: Sodium Chloride 0.9% 1,000 ML IV SCH ×3 (16:00→19:22)
--- NOTE | 2017-05-06 16:23 | OP ---
DATE OF PROCEDURE: 05/06/2017 PROCEDURE PERFORMED: Esophagogastroduodenoscopy (diagnostic). INDICATION FOR PROCEDURE: Anemia. DESCRIPTION OF PROCEDURE: After the risks and benefits were explained to the patient and the patient 's surrogate including risks of bleeding, infection, perforation, reaction as anesthesia and/or pain, informed consent was obtained. The patient was then taken to the endoscopy suite where deep sedatio n via propofol and anesthesia support was administered. The standard gastroscope was then introduced into the mouth with intubation of the esophagus, stomach and proximal small intestine with the findi ngs listed below. The patient tolerated the procedure well with no immediate perioperative complicat ions. FINDINGS: Esophagus: Normal appearing mucosa was seen in the proximal, mid and distal esophagus. T here was no evidence of esophagitis, ulcerations, or mass lesions. Stomach: Normal appearing mucosa was seen in the cardia, fundus, body, antrum and incisura. There w as no evidence of erosions, ulcerations, mass lesions or active/recent bleeding. Normal findings on gastric retroflexion. Small bowel: Normal appearing mucosa was seen in the duodenal bulb without any evidence of erosions, ulcerations, mass lesions or active/recent bleeding; however, upon entry into the second portion of the duodenum, a 4-mm pedunculated polyp was seen along the anterior wall without any evidence of eryt juan a, ulceration or bleeding. This was not intervened upon given her current state of anemia and pos sible increased bleeding with removal of this polyp. Otherwise, the second portion of the small inte evie did not show any additional abnormalities. IMPRESSION: 1. A 4 mm pedunculated polyp seen in the second portion of the duodenum/duodenal sweep without any e vidence of bleeding. 2. Otherwise, normal upper endoscopy. 3. No etiology for anemia was seen during this examination. RECOMMENDATIONS: 1. Follow up with the primary inpatient team. 2. We would continue to trend H and H and transfuse as necessary to maintain an H and H of 7/21. 3. Given normal MCV and normal RDW, a non-GI bleeding source should be ruled out as well. 4. We will hold on colonoscopy for now given the patient's tenuous respiratory status and active pne umonia. They will need stabilization prior to further endoscopic evaluation. 5. We would continue to clinically monitor for signs of active gastrointestinal bleeding. 6. Can continue PPI b.i.d. for now. We will continue to follow. Please call with any questions.
[2017-05-06 16:39] LABS: INR-International Normal Ratio 1.4; Prothrombin Time 17.9 SEC (12.0-14.7)
[2017-05-07] MEDS: Piperacillin/Tazobactam 4.5 GM in Sodium Chloride 0.9% 100 ML IVPB SCH ×4 (02:36→20:32)
[2017-05-07 05:49] LABS: #Lymphocytes 0.9 thou/uL (1.20-3.40); #Monocytes 1.2 thou/uL (0.11-0.59); %Basophils 0.1 % (0.0-1.0); %Eosinophils 0.3 % (0.0-10.0); %Lymphocytes 8.9 % (21.0-51.0); %Monocytes 12.1 % (0.0-10.0); %Neutrophils 78.7 % (42.0-75.0); Hemoglobin 7.5 g/dL (12.0-16.0); Mean Corpuscular Hemoglobin 27.9 pg (27.0-31.0); Mean Corpuscular Volume 84.5 fl (81.0-99.0); Mean Platelet Volume 7.4 fL (7.4-10.4); Platelet Count 335 thou/uL (130-400); RBC Distribution Width 14.2 % (11.5-14.5); Red Blood Cell (RBC) Count 2.71 mill/uL (4.20-5.40); White Blood Cell (WBC) Count 10.1 thou/uL (4.8-10.8)
[2017-05-07 05:59] LABS: ALT (SGPT) 50 U/L (8-55); AST (SGOT) 62 U/L (5-34); Albumin 2.7 g/dL (3.4-4.8); Alkaline Phosphatase 73 U/L (40-150); Anion Gap 13 mmol/L (10-20); BUN (Urea Nitrogen) 14 mg/dL (9.8-20.1); Bilirubin, Total 1.5 mg/dL (0.2-1.2); CK (CPK) 1090 U/L (29-168); Calc. Creatinine Clearance 54 mL/min (70-130); Calcium 8.4 mg/dL (7.8-10.44); Carbon Dioxide 21 mmol/L (23-31); Chloride 107 mmol/L (98-107); Estimated GFR-MDRD 82; Globulin 3.5 g/dL (2.4-3.5); Glucose 96 mg/dL (83-110); Potassium 3.4 mmol/L (3.5-5.1); Protein, Total 6.2 g/dL (6.0-8.3); Sodium 138 mmol/L (136-145)
[2017-05-07] MEDS: Sodium Chloride 0.9% 1,000 ML IV SCH ×2 (06:05→18:00)
[2017-05-07] MEDS ORDERED: Polyethylene Glycol 3350 17 GM Packet PO PRN (07:50)
[2017-05-07] MEDS ORDERED: Simethicone Chewable 80 MG TAB PO PRN (07:50)
[2017-05-07] MEDS: Saccharomyces boulardii 250 MG CAP PO SCH (08:51)
[2017-05-07] MEDS: Metoprolol Tartrate 25 MG TAB PO SCH ×2 (08:51→20:34)
[2017-05-07] MEDS: Pantoprazole 40 MG VIAL IVP SCH ×2 (08:52→20:32)
--- NOTE | 2017-05-07 09:48 | PDOC.PN ---
- Subjective Encounter Start Date: 05/07/17 Encounter Start Time: 07:30 Patient seen and examined. No new complaints. No overnight events - Objective Resuscitation Status: Resuscitation Status FULL:Full Resuscitation MAR Reviewed: Yes Vital Signs & Weight: Vital Signs (12 hours) Temp Pulse Resp BP Pulse Ox 05/07/17 08:00 99.7 F H 104 H 20 165/75 H 90 L 05/07/17 04:00 99.6 F 107 H 22 H 155/69 H 100 Weight Weight 150 lb 1 oz I&O: 05/06/17 05/07/17 05/08/17 06:59 06:59 06:59 Intake Total 1350 1900 Output Total 2450 2800 Balance -1100 -900 Result Diagrams: 05/07/17 04:55 05/07/17 04:55 EKG Reviewed by me: Yes Phys Exam - Physical Examination Constitutional: NAD HEENT: PERRLA, moist MMs, sclera anicteric Neck: no JVD, supple Respiratory: no wheezing, no rales, no rhonchi Cardiovascular: RRR, no significant murmur, no rub Gastrointestinal: soft, non-tender, no distention, positive bowel sounds Musculoskeletal: no edema, pulses present Neurological: non-focal, normal sensation, moves all 4 limbs Lymphatic: no nodes Psychiatric: normal affect Skin: no rash, normal turgor Dx/Plan (1) Acute respiratory failure with hypoxemia Code(s): J96.01 - ACUTE RESPIRATORY FAILURE WITH HYPOXIA Status: Acute (2) Anemia due to acute blood loss Code(s): D62 - ACUTE POSTHEMORRHAGIC ANEMIA Status: Acute (3) Coagulopathy Status: Acute (4) Community acquired bacterial pneumonia Code(s): J15.9 - UNSPECIFIED BACTERIAL PNEUMONIA Status: Acute (5) H/O fall Code(s): Z91.81 - HISTORY OF FALLING Status: Acute (6) Pelvic fracture Code(s): S32.9XXA - FRACTURE OF UNSP PARTS OF LUMBOSACRAL SPINE AND PELVIS, INIT Status: Acute (7) Physical deconditioning Code(s): R53.81 - OTHER MALAISE Status: Acute (8) Rhabdomyolysis Code(s): M62.82 - RHABDOMYOLYSIS Status: Acute (9) Sepsis with acute organ dysfunction Code(s): A41.9 - SEPSIS, UNSPECIFIED ORGANISM; R65.20 - SEVERE SEPSIS WITHOUT SEPTIC SHOCK Status: Acute (10) Syncope Code(s): R55 - SYNCOPE AND COLLAPSE Status: Acute (11) Transaminitis Code(s): R74.0 - NONSPEC ELEV OF LEVELS OF TRANSAMNS & LACTIC ACID DEHYDRGNSE Status: Acute (12) Upper GI bleed Code(s): K92.2 - GASTROINTESTINAL HEMORRHAGE, UNSPECIFIED Status: Acute (13) Hypertension Code(s): I10 - ESSENTIAL (PRIMARY) HYPERTENSION Status: Chronic (14) Hypoalbuminemia due to protein-calorie malnutrition Code(s): E46 - UNSPECIFIED PROTEIN-CALORIE MALNUTRITION Status: Chronic (15) Paroxysmal A-fib Code(s): I48.0 - PAROXYSMAL ATRIAL FIBRILLATION Status: Chronic - Plan cont current plan of care, tomlinson catheter, continue antibiotics, PT/OT, speech therapy, respiratory therapy * H & H stable * continue IV antibiotics for now * will start diet after speech therapy * discussed with family and test result updated * medication reviewed as below * symptomatic treatment. Review of Systems - Review of Systems Constitutional: fever, weakness. negative: chills, sweats, malaise, other Eyes: negative: Pain, Vision Change, Conjunctivae Inflammation, Eyelid Inflammation, Redness, Other ENT: negative: Ear Pain, Ear Discharge, Nose Pain, Nose Discharge, Nose Congestion, Mouth Pain, Mouth Swelling, Throat Pain, Throat Swelling, Other Respiratory: Cough, Sputum. negative: Dry, Shortness of Breath, Hemoptysis, SOB with Excertion, Pleuritic Pain, Wheezing Cardiovascular: negative: chest pain, palpitations, orthopnea, paroxysmal nocturnal dyspnea, edema, light headedness, other Gastrointestinal: negative: Nausea, Vomiting, Abdominal Pain, Diarrhea, Constipation, Melena, Hematochezia, Other Genitourinary: negative: Dysuria, Frequency, Incontinence, Hematuria, Retention , Other Musculoskeletal: negative: Neck Pain, Shoulder Pain, Arm Pain, Back Pain, Hand Pain, Leg Pain, Foot Pain, Other Skin: negative: Rash, Lesions, Lars, Bruising, Other - Medications/Allergies Allergies/Adverse Reactions: Allergies Allergy/AdvReac Type Severity Reaction Status Date / Time No Known Drug Allergies Allergy Verified 04/29/17 23:48 Medications: Current Medications Acetaminophen (Tylenol) 650 mg PO Q4H PRN PRN Reason: Headache/Fever or Pain Hydrocodone Bitart/Acetaminophen ([place] 5/325) 1 tab PO Q4H PRN PRN Reason: Moderate Pain (4-6) Al Hydroxide/Mg Hydroxide (Maalox) 30 ml PO Q6H PRN PRN Reason: Heartburn or Indigestion Artificial Tears (Tears Naturale) 0 drop EA EYE PRN PRN PRN Reason: Dry Eyes Bisacodyl (Dulcolax) 10 mg RI Q24H PRN PRN Reason: Constipation Guaifenesin (Robitussin Sf) 200 mg PO Q4H PRN PRN Reason: Cough Hydralazine HCl (Apresoline) 10 mg SLOW IVP Q4H PRN PRN Reason: Systolic BP > 180 Sodium Chloride (Normal Saline 0.9%) 1,000 mls @ 75 mls/hr IV .[id number] [facility] Last Admin: 05/07/17 06:05 Dose: Not Given Levofloxacin 500 mg/ Device 100 mls @ 100 mls/hr IVPB Q24HR [facility] Last Admin: 05/06/17 12:51 Dose: 100 mls Piperacillin Sod/Tazobactam (Sod 4.5 gm/ Sodium Chloride) 100 mls @ 200 mls/hr IVPB 0300,0900,1500,2100 [facility] Last Admin: 05/07/17 08:51 Dose: 100 mls Vancomycin HCl 1 gm/ Device 200 mls @ 200 mls/hr IVPB Q24HR [facility] Last Admin: 05/06/17 10:45 Dose: 200 mls Loratadine (Claritin) 10 mg PO DAILYPRN PRN PRN Reason: Sinus Symptoms Magnesium Hydroxide (Milk Of Magnesium) 30 ml PO DAILYPRN PRN PRN Reason: Constipation Metoprolol Tartrate (Lopressor) 25 mg PO BID [facility] Last Admin: 05/07/17 08:51 Dose: 25 mg Mineral Oil/White Petrolatum (Eucerin Cream) 0 gm TOP BIDPRN PRN PRN Reason: Dry Skin Miscellaneous Medication (Pharmacy To Dose) 1 each IVPB ASDIR [facility] Ondansetron HCl (Zofran Odt) 4 mg PO Q6H PRN PRN Reason: Nausea/Vomiting Ondansetron HCl (Zofran) 4 mg IVP Q6H PRN PRN Reason: Nausea/Vomiting Pantoprazole Sodium (Protonix) 40 mg IVP Q12HR [facility] Last Admin: 05/07/17 08:52 Dose: 40 mg Phenol (Chloraseptic [place] 180 Ml Bot) 0 ml PO PRN PRN PRN Reason: Sore Throat Polyethylene Glycol (Miralax) 17 gm PO DAILY PRN PRN Reason: Constipation Saccharomyces Boulardii (Florastor) 250 mg PO DAILY [facility] Last Admin: 05/07/17 08:51 Dose: 250 mg Senna (Senokot) 2 tab PO HSPRN PRN PRN Reason: Constipation Simethicone (Mylicon Chewable) 80 mg PO TID PRN PRN Reason: Gas Pain Sodium Biphosphate/Sodium Phosphate (Fleet Enema) 133 ml RI ONE PRN PRN Reason: Constipation Stop: 05/08/17 13:23 Last Admin: 05/07/17 06:41 Dose: 133 ml Sodium Chloride ([place] Nasal [place] 0.65%) 0 ml EA NARE QIDPRN PRN PRN Reason: Nasal Congestion Sodium Chloride (Flush - Normal Saline) 10 ml IVF Q12HR [facility] Last Admin: 05/07/17 08:52 Dose: 10 ml Sodium Chloride (Flush - Normal Saline) 10 ml IVF PRN PRN PRN Reason: Saline Flush
[2017-05-07] MEDS: Vancomycin HCl 1 GM in Premix Bag 1 BAG IVPB SCH (10:03)
--- NOTE | 2017-05-07 13:54 | PRG ---
DATE OF SERVICE: 05/07/2017 SUBJECTIVE: Ms. Napier underwent an EGD with Dr. Colón yesterday. This was essentially unrevealing w ith regard to melena and anemia. No bleeding lesions were identified. The patient had some respirat ory issues during the procedure and she is being treated for aspiration pneumonia. Speech evaluation is pending. She did have a low grade fever last night up to 99.7. She is receiving levofloxacin an d Zosyn as well as vancomycin. SUBJECTIVE: VITAL SIGNS: T-max 99.7, current temperature 97.5, pulse 95, blood pressure 157/65, 95% oxygen satur ation on 3 liters nasal cannula. GENERAL: Frail, lying in bed comfortably, in no acute distress. HEART: Regular rate and rhythm. LUNGS: Bilateral crackles, faint expiratory wheeze in the right side. No respiratory distress. ABDOMEN: Soft and nontender to palpation. EXTREMITIES: No peripheral edema. LABORATORY STUDIES: Hemoglobin stable at 7.5, WBC 10.1, platelets 335. INR 1.4. Sodium 138, potass ium 3.4, BUN 14, creatinine 0.80. Total bilirubin 1.5, alkaline phosphatase 73, AST 62, ALT 50. CK still elevated to 1090. ASSESSMENT AND PLAN: 1. Anemia, stable. 2. Possible melena. 3. Warfarin coagulopathy, reversed after vitamin K administration. The patient's EGD was essentially unrevealing with regard to her anemia and possible melena. Ideally , we would perform a colonoscopy to complete the GI workup. However, there is concern for oropharyng eal dysphagia and possible aspiration. Speech evaluation is pending. Respiratory issues would need to be optimized prior to attempting to administer any bowel preparation. At this point, hemoglobin i s stable and INR is reversed.
[2017-05-08] MEDS: Piperacillin/Tazobactam 4.5 GM in Sodium Chloride 0.9% 100 ML IVPB SCH ×4 (03:25→21:02)
[2017-05-08] MEDS ORDERED: Dextrose 5 %-0.45 % NaCl 1,000 ML IV SCH (07:45)
[2017-05-08] MEDS ORDERED: Acetaminophen 650 MG Suppository PR PRN (07:48)
[2017-05-08] MEDS ORDERED: Nitroglycerin 0.4 MG TAB (25 Tab Bottle) SL PRN (07:48)
[2017-05-08] MEDS ORDERED: Labetalol HCl 100 MG/20 ML VIAL SLOW IVP PRN (07:48)
[2017-05-08 08:16] LABS: Vancomycin, Trough 7.1 ug/mL
[2017-05-08 08:19] LABS: #Eosinphils 0.1 thou/uL (0.0-0.7); #Lymphocytes 0.7 thou/uL (1.20-3.40); #Monocytes 1.2 thou/uL (0.11-0.59); #Neutrophils 11.6 thou/uL (1.40-6.50); %Basophils 0.1 % (0.0-1.0); %Eosinophils 0.6 % (0.0-10.0); %Monocytes 8.5 % (0.0-10.0); %Neutrophils 85.9 % (42.0-75.0); Hemoglobin 7.2 g/dL (12.0-16.0); Mean Corpuscular HGB CONC 32.1 g/dL (32.0-36.0); Mean Corpuscular Hemoglobin 28.2 pg (27.0-31.0); Mean Platelet Volume 7.2 fL (7.4-10.4); Platelet Count 391 thou/uL (130-400); RBC Distribution Width 14.3 % (11.5-14.5); Red Blood Cell (RBC) Count 2.55 mill/uL (4.20-5.40); White Blood Cell (WBC) Count 13.5 thou/uL (4.8-10.8)
[2017-05-08 08:42] LABS: ALT (SGPT) 45 U/L (8-55); AST (SGOT) 50 U/L (5-34); Albumin 2.7 g/dL (3.4-4.8); Alkaline Phosphatase 72 U/L (40-150); Anion Gap 13 mmol/L (10-20); BUN (Urea Nitrogen) 15 mg/dL (9.8-20.1); Bilirubin, Total 1.4 mg/dL (0.2-1.2); CK (CPK) 751 U/L (29-168); Calc. Creatinine Clearance 54 mL/min (70-130); Calcium 8.4 mg/dL (7.8-10.44); Carbon Dioxide 19 mmol/L (23-31); Chloride 109 mmol/L (98-107); Estimated GFR-MDRD 87; Globulin 3.5 g/dL (2.4-3.5); Glucose 105 mg/dL (83-110); Potassium 3.3 mmol/L (3.5-5.1); Protein, Total 6.2 g/dL (6.0-8.3); Sodium 138 mmol/L (136-145)
[2017-05-08] MEDS ORDERED: cloNIDine 0.1mg/24 Hour PATCH TD SCH (09:00)
[2017-05-08] MEDS: Pantoprazole 40 MG VIAL IVP SCH ×2 (09:23→21:02)
[2017-05-08] MEDS: Metoprolol Tartrate 25 MG TAB PO SCH ×2 (09:27→21:02)
[2017-05-08] MEDS: Saccharomyces boulardii 250 MG CAP PO SCH (09:27)
--- NOTE | 2017-05-08 09:57 | CT ---
NONCONTRAST HEAD CT: HISTORY: Dysphasia. Fall. Pain. Confusion. COMPARISON: None. TECHNIQUE: A noncontrast head CT is performed from the skull base to the skull vertex. FINDINGS: No parenchymal hemorrhage. No extraaxial hematoma. No midline shift. The basilar systems are paten t. Brain volume is age appropriate. Cortical [place] white matter differentiation is preserved. The v entricles and sulci are patent and symmetric. Periventricular white matter hypodensities due to independent crop consultant letty small vessel ischemic change are noted. 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 The calvarium is intact. Adequate aeration of the sinuses and mastoid air cells. IMPRESSION: 1. No acute intracranial process. 2. Age appropriate atrophy. 3. Chronic small vessel ischemic change of the white matter. POS: SIDDHARTHA
--- NOTE | 2017-05-08 10:21 | PDOC.PN ---
- Subjective Encounter Start Date: 05/08/17 Encounter Start Time: 07:20 Patient seen and examined. No new complaints. No overnight events - Objective Resuscitation Status: Resuscitation Status FULL:Full Resuscitation MAR Reviewed: Yes Vital Signs & Weight: Vital Signs (12 hours) Temp Pulse Resp BP Pulse Ox 05/08/17 07:46 98.6 F 99 20 159/69 H 97 05/08/17 04:00 99.4 F 103 H 16 163/73 H 98 Weight Weight 143 lb 3 oz I&O: 05/07/17 05/08/17 05/09/17 06:59 06:59 06:59 Intake Total 1900 2020 Output Total 2800 1250 Balance -900 770 Result Diagrams: 05/08/17 07:57 05/08/17 07:57 Radiology Reviewed by me: Yes (CT brain) EKG Reviewed by me: Yes Phys Exam - Physical Examination Constitutional: NAD HEENT: PERRLA, moist MMs, sclera anicteric Neck: no JVD, supple Respiratory: no wheezing, no rales, no rhonchi Cardiovascular: RRR, no significant murmur, no rub Gastrointestinal: soft, non-tender, no distention, positive bowel sounds Musculoskeletal: no edema, pulses present Neurological: non-focal, normal sensation, moves all 4 limbs Psychiatric: normal affect Skin: no rash, normal turgor Dx/Plan (1) Acute respiratory failure with hypoxemia Code(s): J96.01 - ACUTE RESPIRATORY FAILURE WITH HYPOXIA Status: Acute (2) Anemia due to acute blood loss Code(s): D62 - ACUTE POSTHEMORRHAGIC ANEMIA Status: Acute (3) Coagulopathy Status: Acute (4) Community acquired bacterial pneumonia Code(s): J15.9 - UNSPECIFIED BACTERIAL PNEUMONIA Status: Acute (5) H/O fall Code(s): Z91.81 - HISTORY OF FALLING Status: Acute (6) Pelvic fracture Code(s): S32.9XXA - FRACTURE OF UNSP PARTS OF LUMBOSACRAL SPINE AND PELVIS, INIT Status: Acute (7) Physical deconditioning Code(s): R53.81 - OTHER MALAISE Status: Acute (8) Rhabdomyolysis Code(s): M62.82 - RHABDOMYOLYSIS Status: Acute (9) Sepsis with acute organ dysfunction Code(s): A41.9 - SEPSIS, UNSPECIFIED ORGANISM; R65.20 - SEVERE SEPSIS WITHOUT SEPTIC SHOCK Status: Acute (10) Syncope Code(s): R55 - SYNCOPE AND COLLAPSE Status: Acute (11) Transaminitis Code(s): R74.0 - NONSPEC ELEV OF LEVELS OF TRANSAMNS & LACTIC ACID DEHYDRGNSE Status: Acute (12) Upper GI bleed Code(s): K92.2 - GASTROINTESTINAL HEMORRHAGE, UNSPECIFIED Status: Acute (13) Hypertension Code(s): I10 - ESSENTIAL (PRIMARY) HYPERTENSION Status: Chronic (14) Hypoalbuminemia due to protein-calorie malnutrition Code(s): E46 - UNSPECIFIED PROTEIN-CALORIE MALNUTRITION Status: Chronic (15) Paroxysmal A-fib Code(s): I48.0 - PAROXYSMAL ATRIAL FIBRILLATION Status: Chronic (16) Dementia Code(s): F03.90 - UNSPECIFIED DEMENTIA WITHOUT BEHAVIORAL DISTURBANCE Status: Chronic (17) Constipation Code(s): K59.00 - CONSTIPATION, UNSPECIFIED Status: Resolved (18) Rib fracture Code(s): S22.39XA - FRACTURE OF ONE RIB, UNSP SIDE, INIT FOR CLOS FX Status: Acute - Plan cont current plan of care, tomlinson catheter, continue antibiotics, PT/OT, director of social services, speech therapy, DVT proph w/lovenox * change ivf to dex with 1/2 ns with kcl * diet if cleared by speech therapy * i discussed with daughter about option of peg tube, she will discuss with other family. * continue antibiotics * i am suspecting that she has dementia and due to that she has oropharyngeal dysphagia * CT brain did not show CVA Review of Systems - Review of Systems Other: unable to review due to her level of cognitive status - Medications/Allergies Allergies/Adverse Reactions: Allergies Allergy/AdvReac Type Severity Reaction Status Date / Time No Known Drug Allergies Allergy Verified 04/29/17 23:48 Medications: Current Medications Acetaminophen (Tylenol) 650 mg PO Q4H PRN PRN Reason: Headache/Fever or Pain Acetaminophen (Tylenol) 650 mg DC Q4H PRN PRN Reason: Headache/Fever or Mild Pain Hydrocodone Bitart/Acetaminophen ([place] 5/325) 1 tab PO Q4H PRN PRN Reason: Moderate Pain (4-6) Al Hydroxide/Mg Hydroxide (Maalox) 30 ml PO Q6H PRN PRN Reason: Heartburn or Indigestion Artificial Tears (Tears Naturale) 0 drop EA EYE PRN PRN PRN Reason: Dry Eyes Bisacodyl (Dulcolax) 10 mg DC Q24H PRN PRN Reason: Constipation Clonidine (Tdagwhyz-Cnu-6 Patch) 0.1 mg TD Q7DAYS [facility] Guaifenesin (Robitussin Sf) 200 mg PO Q4H PRN PRN Reason: Cough Hydralazine HCl (Apresoline) 10 mg SLOW IVP Q4H PRN PRN Reason: Systolic BP > 180 Levofloxacin 500 mg/ Device 100 mls @ 100 mls/hr IVPB Q24HR [facility] Last Admin: 05/07/17 14:32 Dose: 100 mls Piperacillin Sod/Tazobactam (Sod 4.5 gm/ Sodium Chloride) 100 mls @ 200 mls/hr IVPB 0300,0900,1500,2100 [facility] Last Admin: 05/08/17 09:22 Dose: 100 mls Vancomycin HCl 1 gm/ Device 200 mls @ 200 mls/hr IVPB 0900,2100 [facility] Potassium Chloride/Dextrose/Sod Cl (D5 1/2 Ns W/20 Meq Kcl) 1,000 mls @ 75 mls/ hr IV .[id number] [facility] Labetalol HCl (Normodyne) 20 mg SLOW IVP Q4H PRN PRN Reason: Systolic BP > 180 Loratadine (Claritin) 10 mg PO DAILYPRN PRN PRN Reason: Sinus Symptoms Magnesium Hydroxide (Milk Of Magnesium) 30 ml PO DAILYPRN PRN PRN Reason: Constipation Metoprolol Tartrate (Lopressor) 25 mg PO BID [facility] Last Admin: 05/08/17 09:27 Dose: Not Given Mineral Oil/White Petrolatum (Eucerin Cream) 0 gm TOP BIDPRN PRN PRN Reason: Dry Skin Miscellaneous Medication (Pharmacy To Dose) 1 each IVPB ASDIR [facility] Nitroglycerin (Nitrostat) 0.4 mg SL Q5MIN PRN PRN Reason: Chest Pain Ondansetron HCl (Zofran Odt) 4 mg PO Q6H PRN PRN Reason: Nausea/Vomiting Ondansetron HCl (Zofran) 4 mg IVP Q6H PRN PRN Reason: Nausea/Vomiting Pantoprazole Sodium (Protonix) 40 mg IVP Q12HR [facility] Last Admin: 05/08/17 09:23 Dose: 40 mg Phenol (Chloraseptic [place] 180 Ml Bot) 0 ml PO PRN PRN PRN Reason: Sore Throat Polyethylene Glycol (Miralax) 17 gm PO DAILY PRN PRN Reason: Constipation Saccharomyces Boulardii (Florastor) 250 mg PO DAILY [facility] Last Admin: 05/08/17 09:27 Dose: Not Given Senna (Senokot) 2 tab PO HSPRN PRN PRN Reason: Constipation Simethicone (Mylicon Chewable) 80 mg PO TID PRN PRN Reason: Gas Pain Sodium Biphosphate/Sodium Phosphate (Fleet Enema) 133 ml DC ONE PRN PRN Reason: Constipation Stop: 05/08/17 13:23 Last Admin: 05/07/17 06:41 Dose: 133 ml Sodium Chloride ([place] Nasal [place] 0.65%) 0 ml EA NARE QIDPRN PRN PRN Reason: Nasal Congestion Sodium Chloride (Flush - Normal Saline) 10 ml IVF Q12HR [facility] Last Admin: 05/08/17 09:18 Dose: 10 ml Sodium Chloride (Flush - Normal Saline) 10 ml IVF PRN PRN PRN Reason: Saline Flush Last Admin: 05/08/17 09:23 Dose: 10 ml
[2017-05-08] MEDS: Vancomycin HCl 1 GM in Premix Bag 1 BAG IVPB SCH ×2 (10:39→21:03)
[2017-05-08] MEDS: D5 1/2 NS w/20 mEq KCL 1,000 ML IV SCH (11:49)
--- NOTE | 2017-05-08 15:55 | PRG ---
DATE OF SERVICE: 05/08/2017 SUBJECTIVE: Ms. Napier is pleasantly demented and awake and alert. She has no acute complaints. Her nurse reports no overt bloody stool output today. She failed a swallowing study due to inability to cooperate yesterday. She is a little more alert today and Speech Pathology is going to reevaluate h er swallowing. OBJECTIVE: VITAL SIGNS: Temperature 98.6, blood pressure 159/69 and pulse 101. GENERAL: She is in no acute distress. She is awake and responsive. LUNGS: Clear to auscultation bilaterally. CARDIOVASCULAR: Heart is irregular. ABDOMEN: Soft, nontender and nondistended. Bowel sounds are present. EXTREMITIES: No lower extremity edema. LABORATORY DATA: White blood cell count 13.5, hemoglobin 7.2 and platelets 391. INR is down from 2. 5 to 1.4 and creatinine is 0.76. IMPRESSION: Gastrointestinal bleed and anemia. She presented with bleeding while anticoagulated. S he has had no further bleeding since the INR has been returned towards normal. Esophagogastroduodeno scopy did not show any significant bleeding source. Colonoscopy is a potential option for evaluation of the bleeding; however, she was then n.p.o. due to significant aspiration risk. Her hemoglobin is stable at this point and colonoscopy may be deferred indefinitely depending on clinical course. RECOMMENDATIONS: 1. Await reevaluation by Speech Pathology for swallowing. If ultimately she is deemed high risk, th en PEG tube could be considered depending on the family's wishes. 2. Colonoscopy is deferred for now. She did present with significant anemia and some possible melen a with negative EGD. 3. Continue to follow trending the liver tests and await speech pathology evaluation. Dr. Velasco will be covering the weekend.
[2017-05-09] MEDS: D5 1/2 NS w/20 mEq KCL 1,000 ML IV SCH ×3 (00:28→14:16)
[2017-05-09] MEDS: Piperacillin/Tazobactam 4.5 GM in Sodium Chloride 0.9% 100 ML IVPB SCH ×4 (03:00→21:31)
--- NOTE | 2017-05-09 03:52 | PDOC.EVN ---
Event Note - Event Note Event Note: RN called - Pt had 21 beats of NSVT. Stat labs ordered.
[2017-05-09] MEDS ORDERED: Magnesium 2 GM/NS 0.9% 100 ML 2 GM in Premix Bag 1 BAG IVPB SCH (04:00)
[2017-05-09 04:42] LABS: Albumin 2.5 g/dL (3.4-4.8); Anion Gap 10 mmol/L (10-20); BUN (Urea Nitrogen) 12 mg/dL (9.8-20.1); BUN/Creatinine Ratio 15.38; Calc. Creatinine Clearance 53 mL/min (70-130); Calcium 8.1 mg/dL (7.8-10.44); Carbon Dioxide 21 mmol/L (23-31); Chloride 109 mmol/L (98-107); Estimated GFR-MDRD 85; Glucose 172 mg/dL (83-110); Magnesium 1.6 mg/dL (1.6-2.6); Sodium 137 mmol/L (136-145)
[2017-05-09 04:53] LABS: Phosphorus 1.8 mg/dL (2.3-4.7)
[2017-05-09] MEDS ORDERED: Potassium Phosphate 15 MMOL in Sodium Chloride 0.9% 250 ML 250 ML IVPB SCH (06:00)
[2017-05-09] MEDS: Metoprolol Tartrate 25 MG TAB PO SCH ×2 (08:16→21:24)
[2017-05-09] MEDS: Pantoprazole 40 MG VIAL IVP SCH ×2 (08:17→21:31)
[2017-05-09] MEDS: Saccharomyces boulardii 250 MG CAP PO SCH (08:18)
--- NOTE | 2017-05-09 09:03 | PDOC.PN ---
- Subjective Encounter Start Date: 05/09/17 Encounter Start Time: 07:10 Patient seen and examined. No new complaints. pt had NSVT on monitor pt failed swallow yesterday - Objective Resuscitation Status: Resuscitation Status FULL:Full Resuscitation MAR Reviewed: Yes Vital Signs & Weight: Vital Signs (12 hours) Temp Pulse Resp BP Pulse Ox 05/09/17 03:59 100.1 F H 102 H 18 160/70 H 99 05/09/17 01:00 99 05/08/17 23:48 98.9 F 108 H 16 170/71 H 97 Weight Weight 144 lb I&O: 05/08/17 05/09/17 05/10/17 06:59 06:59 07:59 Intake Total 2020 1913 Output Total 1250 1130 Balance 770 783 Result Diagrams: 05/08/17 07:57 05/09/17 04:15 EKG Reviewed by me: Yes (nsr) Phys Exam - Physical Examination Constitutional: NAD HEENT: PERRLA, moist MMs, sclera anicteric Neck: no JVD, supple Respiratory: no wheezing, no rales, no rhonchi reduced air entry at base Cardiovascular: RRR, no significant murmur, no rub Gastrointestinal: soft, non-tender, no distention, positive bowel sounds Musculoskeletal: no edema, pulses present Neurological: non-focal, normal sensation Lymphatic: no nodes Psychiatric: normal affect Skin: no rash, normal turgor Dx/Plan (1) Acute respiratory failure with hypoxemia Code(s): J96.01 - ACUTE RESPIRATORY FAILURE WITH HYPOXIA Status: Acute (2) Anemia due to acute blood loss Code(s): D62 - ACUTE POSTHEMORRHAGIC ANEMIA Status: Acute (3) Coagulopathy Status: Acute (4) Community acquired bacterial pneumonia Code(s): J15.9 - UNSPECIFIED BACTERIAL PNEUMONIA Status: Acute (5) H/O fall Code(s): Z91.81 - HISTORY OF FALLING Status: Acute (6) Pelvic fracture Code(s): S32.9XXA - FRACTURE OF UNSP PARTS OF LUMBOSACRAL SPINE AND PELVIS, INIT Status: Acute (7) Physical deconditioning Code(s): R53.81 - OTHER MALAISE Status: Acute (8) Rhabdomyolysis Code(s): M62.82 - RHABDOMYOLYSIS Status: Acute (9) Sepsis with acute organ dysfunction Code(s): A41.9 - SEPSIS, UNSPECIFIED ORGANISM; R65.20 - SEVERE SEPSIS WITHOUT SEPTIC SHOCK Status: Acute (10) Syncope Code(s): R55 - SYNCOPE AND COLLAPSE Status: Acute (11) Transaminitis Code(s): R74.0 - NONSPEC ELEV OF LEVELS OF TRANSAMNS & LACTIC ACID DEHYDRGNSE Status: Acute (12) Upper GI bleed Code(s): K92.2 - GASTROINTESTINAL HEMORRHAGE, UNSPECIFIED Status: Acute (13) Hypertension Code(s): I10 - ESSENTIAL (PRIMARY) HYPERTENSION Status: Chronic (14) Hypoalbuminemia due to protein-calorie malnutrition Code(s): E46 - UNSPECIFIED PROTEIN-CALORIE MALNUTRITION Status: Chronic (15) Paroxysmal A-fib Code(s): I48.0 - PAROXYSMAL ATRIAL FIBRILLATION Status: Chronic (16) Dementia Code(s): F03.90 - UNSPECIFIED DEMENTIA WITHOUT BEHAVIORAL DISTURBANCE Status: Chronic (17) Constipation Code(s): K59.00 - CONSTIPATION, UNSPECIFIED Status: Resolved (18) Rib fracture Code(s): S22.39XA - FRACTURE OF ONE RIB, UNSP SIDE, INIT FOR CLOS FX Status: Acute (19) Oropharyngeal dysphagia Code(s): R13.12 - DYSPHAGIA, OROPHARYNGEAL PHASE Status: Acute (20) NSVT (nonsustained ventricular tachycardia) Code(s): I47.2 - VENTRICULAR TACHYCARDIA Status: Acute (21) Hypokalemia due to inadequate potassium intake Code(s): E87.6 - HYPOKALEMIA Status: Acute (22) Hypophosphatemia Code(s): E83.39 - OTHER DISORDERS OF PHOSPHORUS METABOLISM Status: Acute - Plan cont current plan of care, plan discussed w/ family, continue antibiotics, PT/OT , certified social workers in health care, speech therapy, respiratory therapy, DVT proph w/lovenox * family agreed today for PEG * GI will do PEG today or tomorrow * after PEG start oral meds and tube feeding * continue IV antibiotics as ordered * medication reviewed as below * symptomatic treatment * replace potassium phosphate * repeat labs tomorrow. Review of Systems - Review of Systems Other: unable to review due to dementia - Medications/Allergies Allergies/Adverse Reactions: Allergies Allergy/AdvReac Type Severity Reaction Status Date / Time No Known Drug Allergies Allergy Verified 04/29/17 23:48 Medications: Current Medications Acetaminophen (Tylenol) 650 mg PO Q4H PRN PRN Reason: Headache/Fever or Pain Acetaminophen (Tylenol) 650 mg NV Q4H PRN PRN Reason: Headache/Fever or Mild Pain Hydrocodone Bitart/Acetaminophen ([place] 5/325) 1 tab PO Q4H PRN PRN Reason: Moderate Pain (4-6) Al Hydroxide/Mg Hydroxide (Maalox) 30 ml PO Q6H PRN PRN Reason: Heartburn or Indigestion Artificial Tears (Tears Naturale) 0 drop EA EYE PRN PRN PRN Reason: Dry Eyes Bisacodyl (Dulcolax) 10 mg NV Q24H PRN PRN Reason: Constipation Clonidine (Ysllryma-Luv-5 Patch) 0.1 mg TD Q7DAYS [facility] Last Admin: 05/08/17 10:40 Dose: 0.1 mg Guaifenesin (Robitussin Sf) 200 mg PO Q4H PRN PRN Reason: Cough Hydralazine HCl (Apresoline) 10 mg SLOW IVP Q4H PRN PRN Reason: Systolic BP > 180 Levofloxacin 500 mg/ Device 100 mls @ 100 mls/hr IVPB Q24HR [facility] Last Admin: 05/08/17 13:34 Dose: 100 mls Piperacillin Sod/Tazobactam (Sod 4.5 gm/ Sodium Chloride) 100 mls @ 200 mls/hr IVPB 0300,0900,1500,2100 [facility] Last Admin: 05/09/17 08:17 Dose: 100 mls Vancomycin HCl 1 gm/ Device 200 mls @ 200 mls/hr IVPB 0900,2100 [facility] Last Admin: 05/08/17 21:03 Dose: 200 mls Potassium Chloride/Dextrose/Sod Cl (D5 1/2 Ns W/20 Meq Kcl) 1,000 mls @ 75 mls/ hr IV .[id number] [facility] Last Admin: 05/09/17 03:01 Dose: 1,000 mls Potassium Phosphate 15 mmol/ (Sodium Chloride) 255 mls @ 63.75 mls/hr IVPB NOW [facility] Stop: 05/09/17 09:59 Last Admin: 05/09/17 05:49 Dose: 255 mls Labetalol HCl (Normodyne) 20 mg SLOW IVP Q4H PRN PRN Reason: Systolic BP > 180 Loratadine (Claritin) 10 mg PO DAILYPRN PRN PRN Reason: Sinus Symptoms Magnesium Hydroxide (Milk Of Magnesium) 30 ml PO DAILYPRN PRN PRN Reason: Constipation Metoprolol Tartrate (Lopressor) 25 mg PO BID [facility] Last Admin: 05/09/17 08:16 Dose: Not Given Mineral Oil/White Petrolatum (Eucerin Cream) 0 gm TOP BIDPRN PRN PRN Reason: Dry Skin Miscellaneous Medication (Pharmacy To Dose) 1 each IVPB ASDIR [facility] Nitroglycerin (Nitrostat) 0.4 mg SL Q5MIN PRN PRN Reason: Chest Pain Ondansetron HCl (Zofran Odt) 4 mg PO Q6H PRN PRN Reason: Nausea/Vomiting Ondansetron HCl (Zofran) 4 mg IVP Q6H PRN PRN Reason: Nausea/Vomiting Pantoprazole Sodium (Protonix) 40 mg IVP Q12HR [facility] Last Admin: 05/09/17 08:17 Dose: 40 mg Phenol (Chloraseptic [place] 180 Ml Bot) 0 ml PO PRN PRN PRN Reason: Sore Throat Polyethylene Glycol (Miralax) 17 gm PO DAILY PRN PRN Reason: Constipation Saccharomyces Boulardii (Florastor) 250 mg PO DAILY [facility] Last Admin: 05/09/17 08:18 Dose: Not Given Senna (Senokot) 2 tab PO HSPRN PRN PRN Reason: Constipation Simethicone (Mylicon Chewable) 80 mg PO TID PRN PRN Reason: Gas Pain Sodium Chloride ([place] Nasal [place] 0.65%) 0 ml EA NARE QIDPRN PRN PRN Reason: Nasal Congestion Sodium Chloride (Flush - Normal Saline) 10 ml IVF Q12HR [facility] Last Admin: 05/09/17 08:18 Dose: 10 ml Sodium Chloride (Flush - Normal Saline) 10 ml IVF PRN PRN PRN Reason: Saline Flush Last Admin: 05/08/17 09:23 Dose: 10 ml
[2017-05-09] MEDS: Vancomycin HCl 1 GM in Premix Bag 1 BAG IVPB SCH ×2 (09:50→21:24)
[2017-05-09] MEDS ORDERED: Promethazine HCl 25 MG/ML VIAL SLOW IVP PRN (12:32)
[2017-05-09] MEDS ORDERED: Promethazine HCl 25 MG/ML VIAL IM PRN (12:32)
[2017-05-09] MEDS ORDERED: Ondansetron HCl/PF 4 MG/2 ML Vial IVP PRN (12:32)
--- NOTE | 2017-05-09 15:03 | EKG ---
Test Reason : LOW HH Blood Pressure : / mmHG Vent. Rate : 122 BPM Atrial Rate : 122 BPM P-R Int : 144 ms QRS Dur : 084 ms QT Int : 332 ms P-R-T Axes : 034 -05 150 degrees QTc Int : 473 ms Sinus tachycardia with Premature atrial complexes Abnormal ECG Confirmed by ELISHA VIDAL ([id number]), film editor supervisor CHERELLE DAWN ([id number]) on 05/09/2017 3:02:36 PM Referred By: DR VIDAL Confirmed By:ELISHA VIDAL
[2017-05-09] MEDS ORDERED: Propofol 200 MG/20 ML VIAL ONE (16:57)
[2017-05-09] MEDS ORDERED: Lidocaine 1% PF 5 ML VIAL ONE (16:57)
[2017-05-09] MEDS ORDERED: PHENYLEPHRINE-NS 100 MCG/ML 10 ML SYRINGE ONE (16:57)
[2017-05-09 20:13] LABS: Vancomycin, Trough 17.6 ug/mL
--- NOTE | 2017-05-10 00:57 | OP ---
DATE OF PROCEDURE: 05/09/2017 OPERATIVE PROCEDURE: Esophagogastroduodenoscopy with endoscopic gastrostomy tube placement. PREOPERATIVE DIAGNOSIS: Aspiration, failed modified barium swallow. POSTOPERATIVE DIAGNOSES: 1. Mild gastritis. 2. Successful placement of G-tube without any difficulty. PROCEDURE IN DETAIL: The patient was placed on her back and was given sedation by Anesthesia Departm ent. The patient already on scheduled antibiotics and no further antibiotics were given. A bite blo ck was placed. Then, Pentax video gastroscope under direct vision was passed over the flexible GE ju nction into stomach and subsequent descending duodenum. The esophageal mucosa appears normal. The G E junction, no pathology seen. She has hiatus hernia. Fundus, cardia, and gastric body, no patholog y seen. There are some linear erythematous streaks of the gastric antrum. The duodenal bulb, descen ding duodenum, no pathology seen. A gastrostomy tube site was marked by applying transillumination f rom within. The site was marked by applying finger pressure. The site was cleaned and surgically pr epped. The site was anesthetized with 1% Xylocaine infiltration. Over the site, a size 16 Angiocath was advanced into the stomach. Through the Angiocath, a guidewire was fed into the stomach. It was grasped with polypectomy snare and pulled outside the mouth. To the end of the guidewire protruding outside the mouth, a gastrostomy tube was connected. The wire was pulled back retrograde and the tu be left in place. The patient rescoped again to confirm proper placement of G-tube. No complication noted. The stomach was decompressed and the scope removed. RECOMMENDATIONS 1. N.p.o. 2. May start tube feeding after 6:00 p.m. today.
[2017-05-10] MEDS: Piperacillin/Tazobactam 4.5 GM in Sodium Chloride 0.9% 100 ML IVPB SCH ×4 (03:55→20:33)
[2017-05-10 05:17] LABS: #Lymphocytes 0.7 thou/uL (1.20-3.40); #Monocytes 0.8 thou/uL (0.11-0.59); #Neutrophils 8.5 thou/uL (1.40-6.50); %Basophils 0.2 % (0.0-1.0); %Eosinophils 0.3 % (0.0-10.0); %Lymphocytes 7.4 % (21.0-51.0); %Monocytes 7.6 % (0.0-10.0); %Neutrophils 84.5 % (42.0-75.0); Hemoglobin 6.5 g/dL (12.0-16.0); Mean Corpuscular HGB CONC 32.4 g/dL (32.0-36.0); Mean Corpuscular Hemoglobin 27.6 pg (27.0-31.0); Mean Corpuscular Volume 85.3 fl (81.0-99.0); Mean Platelet Volume 6.5 fL (7.4-10.4); Platelet Count 383 thou/uL (130-400); RBC Distribution Width 14.1 % (11.5-14.5); Red Blood Cell (RBC) Count 2.34 mill/uL (4.20-5.40); White Blood Cell (WBC) Count 10.1 thou/uL (4.8-10.8)
[2017-05-10 05:31] LABS: Albumin 2.4 g/dL (3.4-4.8); Anion Gap 10 mmol/L (10-20); BUN (Urea Nitrogen) 11 mg/dL (9.8-20.1); BUN/Creatinine Ratio 13.92; Calc. Creatinine Clearance 53 mL/min (70-130); Calcium 7.9 mg/dL (7.8-10.44); Carbon Dioxide 20 mmol/L (23-31); Chloride 110 mmol/L (98-107); Estimated GFR-MDRD 83; Glucose 153 mg/dL (83-110); Magnesium 1.9 mg/dL (1.6-2.6); Potassium 3.2 mmol/L (3.5-5.1); Sodium 137 mmol/L (136-145)
[2017-05-10 05:32] LABS: Phosphorus 1.9 mg/dL (2.3-4.7)
[2017-05-10] MEDS ORDERED: Furosemide 20 MG/2 ML VIAL SLOW IVP SCH (07:00)
[2017-05-10] MEDS ORDERED: Loratadine 10 MG TAB PER TUBE PRN (07:15)
[2017-05-10] MEDS ORDERED: Simethicone Chewable 80 MG TAB PER TUBE PRN (07:15)
[2017-05-10] MEDS ORDERED: Ondansetron ODT 4 MG TAB PER TUBE PRN (07:15)
[2017-05-10] MEDS ORDERED: Acetaminophen 325 MG TAB PER TUBE PRN (07:15)
[2017-05-10] MEDS ORDERED: Polyethylene Glycol 3350 17 GM Packet PER TUBE PRN (07:15)
[2017-05-10] MEDS ORDERED: Diabetic Tussin 200 MG/10 ML UDCUP PER TUBE PRN (07:15)
[2017-05-10] MEDS ORDERED: Mag-Al 1200 mg/1200 mg/30 ML UDCUP PER TUBE PRN (07:15)
[2017-05-10] MEDS ORDERED: Potassium Phosphate 30 MMOL in Sodium Chloride 0.9% 500 ML IVPB SCH (07:30)
[2017-05-10] MEDS: Pantoprazole 40 MG VIAL IVP SCH ×2 (08:32→20:33)
[2017-05-10] MEDS: Metoprolol Tartrate 25 MG TAB PER TUBE SCH ×2 (08:37→20:33)
[2017-05-10] MEDS: Saccharomyces boulardii 250 MG CAP PER TUBE SCH (08:37)
--- NOTE | 2017-05-10 09:01 | PDOC.PN ---
- Subjective Encounter Start Date: 05/10/17 Encounter Start Time: 07:00 pt is weak, now on tube feeding, afebrile, does not have obvious acute blood loss, no overnight event Patient seen and examined. - Objective Resuscitation Status: Resuscitation Status FULL:Full Resuscitation MAR Reviewed: Yes Vital Signs & Weight: Vital Signs (12 hours) Temp Pulse Resp BP Pulse Ox 05/10/17 08:03 96 05/10/17 07:15 98.6 F 97 20 135/62 97 05/10/17 03:42 99.2 F 98 20 144/67 H 97 05/09/17 20:00 99.2 F 98 20 98 Weight Weight 143 lb 12.568 oz I&O: 05/09/17 05/10/17 05/11/17 05:59 06:59 06:59 Intake Total Output Total Balance Result Diagrams: 05/10/17 04:48 05/10/17 04:48 Phys Exam - Physical Examination Constitutional: NAD HEENT: PERRLA, moist MMs, sclera anicteric Neck: no JVD, supple Respiratory: no wheezing, no rales, no rhonchi reduce air entry at base Cardiovascular: RRR, no significant murmur, no rub Gastrointestinal: soft, non-tender, no distention, positive bowel sounds PEG + Musculoskeletal: no edema, pulses present tomlinson+ Neurological: moves all 4 limbs Lymphatic: no nodes Psychiatric: normal affect Skin: no rash, normal turgor Dx/Plan (1) Acute respiratory failure with hypoxemia Code(s): J96.01 - ACUTE RESPIRATORY FAILURE WITH HYPOXIA Status: Acute (2) Anemia due to acute blood loss Code(s): D62 - ACUTE POSTHEMORRHAGIC ANEMIA Status: Acute (3) Coagulopathy Status: Acute (4) Community acquired bacterial pneumonia Code(s): J15.9 - UNSPECIFIED BACTERIAL PNEUMONIA Status: Acute (5) H/O fall Code(s): Z91.81 - HISTORY OF FALLING Status: Acute (6) Pelvic fracture Code(s): S32.9XXA - FRACTURE OF UNSP PARTS OF LUMBOSACRAL SPINE AND PELVIS, INIT Status: Acute (7) Physical deconditioning Code(s): R53.81 - OTHER MALAISE Status: Acute (8) Rhabdomyolysis Code(s): M62.82 - RHABDOMYOLYSIS Status: Acute (9) Sepsis with acute organ dysfunction Code(s): A41.9 - SEPSIS, UNSPECIFIED ORGANISM; R65.20 - SEVERE SEPSIS WITHOUT SEPTIC SHOCK Status: Acute (10) Syncope Code(s): R55 - SYNCOPE AND COLLAPSE Status: Acute (11) Transaminitis Code(s): R74.0 - NONSPEC ELEV OF LEVELS OF TRANSAMNS & LACTIC ACID DEHYDRGNSE Status: Acute (12) Upper GI bleed Code(s): K92.2 - GASTROINTESTINAL HEMORRHAGE, UNSPECIFIED Status: Acute (13) Hypertension Code(s): I10 - ESSENTIAL (PRIMARY) HYPERTENSION Status: Chronic (14) Hypoalbuminemia due to protein-calorie malnutrition Code(s): E46 - UNSPECIFIED PROTEIN-CALORIE MALNUTRITION Status: Chronic (15) Paroxysmal A-fib Code(s): I48.0 - PAROXYSMAL ATRIAL FIBRILLATION Status: Chronic (16) Dementia Code(s): F03.90 - UNSPECIFIED DEMENTIA WITHOUT BEHAVIORAL DISTURBANCE Status: Chronic (17) Constipation Code(s): K59.00 - CONSTIPATION, UNSPECIFIED Status: Resolved (18) Rib fracture Code(s): S22.39XA - FRACTURE OF ONE RIB, UNSP SIDE, INIT FOR CLOS FX Status: Acute (19) Oropharyngeal dysphagia Code(s): R13.12 - DYSPHAGIA, OROPHARYNGEAL PHASE Status: Acute Comment: s/p PEG (20) NSVT (nonsustained ventricular tachycardia) Code(s): I47.2 - VENTRICULAR TACHYCARDIA Status: Acute (21) Hypokalemia due to inadequate potassium intake Code(s): E87.6 - HYPOKALEMIA Status: Acute (22) Hypophosphatemia Code(s): E83.39 - OTHER DISORDERS OF PHOSPHORUS METABOLISM Status: Acute - Plan cont current plan of care, plan discussed w/ family, continue antibiotics, PT/OT , social services counselor, DVT proph w/SCDs * today replace potassium phosphate * DC IVF * continue tube feeding and advance as tolerated as per dietitian recommendation. * transfuse 2 unit prbc today for symptomatic anemia * give lasix in between 2 unit to prevent fluid overload * repeat labs tomorrow * continue current iv antibiotic, DC vancomycin * discussed with family * medication via peg * medication reviewed as below * symptomatic treatment Review of Systems - Review of Systems Other: unable to review due to dementia and level of cognitive status - Medications/Allergies Allergies/Adverse Reactions: Allergies Allergy/AdvReac Type Severity Reaction Status Date / Time No Known Drug Allergies Allergy Verified 04/29/17 23:48 Medications: Current Medications Acetaminophen (Tylenol) 650 mg [place] Q4H PRN PRN Reason: Headache/Fever or Mild Pain Last Admin: 05/10/17 04:02 Dose: 650 mg Acetaminophen (Tylenol) 650 mg PER TUBE Q4H PRN PRN Reason: Headache/Fever or Pain Hydrocodone Bitart/Acetaminophen ([place] 5/325) 1 tab PO Q4H PRN PRN Reason: Moderate Pain (4-6) Al Hydroxide/Mg Hydroxide (Maalox) 30 ml PER TUBE Q6H PRN PRN Reason: Heartburn or Indigestion Artificial Tears (Tears Naturale) 0 drop EA EYE PRN PRN PRN Reason: Dry Eyes Bisacodyl (Dulcolax) 10 mg [place] Q24H PRN PRN Reason: Constipation Clonidine (Rvlabvtp-Nje-2 Patch) 0.1 mg TD Q7DAYS [facility] Last Admin: 05/08/17 10:40 Dose: 0.1 mg Furosemide (Lasix) 20 mg SLOW IVP ONE [facility] Stop: 05/10/17 14:00 Guaifenesin (Robitussin Sf) 200 mg PER TUBE Q4H PRN PRN Reason: Cough Hydralazine HCl (Apresoline) 10 mg SLOW IVP Q4H PRN PRN Reason: Systolic BP > 180 Levofloxacin 500 mg/ Device 100 mls @ 100 mls/hr IVPB Q24HR [facility] Last Admin: 05/09/17 14:17 Dose: 100 mls Piperacillin Sod/Tazobactam (Sod 4.5 gm/ Sodium Chloride) 100 mls @ 200 mls/hr IVPB 0300,0900,1500,2100 [facility] Last Admin: 05/10/17 08:31 Dose: 100 mls Vancomycin HCl 1 gm/ Device 200 mls @ 200 mls/hr IVPB 0900,2100 [facility] Last Admin: 05/09/17 21:24 Dose: 200 mls Potassium Phosphate 30 mmol/ (Sodium Chloride) 510 mls @ 85 mls/hr IVPB NOW [facility] Stop: 05/10/17 13:29 Last Admin: 05/10/17 07:22 Dose: 510 mls Labetalol HCl (Normodyne) 20 mg SLOW IVP Q4H PRN PRN Reason: Systolic BP > 180 Loratadine (Claritin) 10 mg PER TUBE DAILYPRN PRN PRN Reason: Sinus Symptoms Magnesium Hydroxide (Milk Of Magnesium) 30 ml PO DAILYPRN PRN PRN Reason: Constipation Metoprolol Tartrate (Lopressor) 25 mg PER TUBE BID [facility] Last Admin: 05/10/17 08:37 Dose: 25 mg Mineral Oil/White Petrolatum (Eucerin Cream) 0 gm TOP BIDPRN PRN PRN Reason: Dry Skin Miscellaneous Medication (Pharmacy To Dose) 1 each IVPB ASDIR [facility] Nitroglycerin (Nitrostat) 0.4 mg SL Q5MIN PRN PRN Reason: Chest Pain Ondansetron HCl (Zofran) 4 mg IVP Q6H PRN PRN Reason: Nausea/Vomiting Ondansetron HCl (Zofran Odt) 4 mg PER TUBE Q6H PRN PRN Reason: Nausea/Vomiting Pantoprazole Sodium (Protonix) 40 mg IVP Q12HR [facility] Last Admin: 05/10/17 08:32 Dose: 40 mg Phenol (Chloraseptic [place] 180 Ml Bot) 0 ml PO PRN PRN PRN Reason: Sore Throat Polyethylene Glycol (Miralax) 17 gm PER TUBE DAILY PRN PRN Reason: Constipation Saccharomyces Boulardii (Florastor) 250 mg PER TUBE DAILY [facility] Last Admin: 05/10/17 08:37 Dose: 250 mg Senna (Senokot) 2 tab PO HSPRN PRN PRN Reason: Constipation Simethicone (Mylicon Chewable) 80 mg PER TUBE TID PRN PRN Reason: Gas Pain Sodium Chloride ([place] Nasal [place] 0.65%) 0 ml EA NARE QIDPRN PRN PRN Reason: Nasal Congestion Sodium Chloride (Flush - Normal Saline) 10 ml IVF Q12HR [facility] Last Admin: 05/10/17 08:38 Dose: 10 ml Sodium Chloride (Flush - Normal Saline) 10 ml IVF PRN PRN PRN Reason: Saline Flush Last Admin: 05/08/17 09:23 Dose: 10 ml
[2017-05-10] MEDS: Vancomycin HCl 1 GM in Premix Bag 1 BAG IVPB SCH (11:18)
--- NOTE | 2017-05-10 13:15 | PRG ---
DATE OF SERVICE: 05/10/2017 This is an 86-year-old black female, who had a PEG tube placement done yesterday. The patient is melany erating tube feeding at 30 mL per hour. Her abdomen is soft and nontender. The PEG tube site is ritika y healthy. The . RECOMMENDATION: Increase tube feeding to 40 mL per hour now, and if she does well, would increase to 60 mL today. We will sign off. On any problem, please call us back.
[2017-05-11] MEDS: Piperacillin/Tazobactam 4.5 GM in Sodium Chloride 0.9% 100 ML IVPB SCH (03:21)
[2017-05-11 05:19] LABS: #Eosinphils 0.1 thou/uL (0.0-0.7); #Lymphocytes 0.8 thou/uL (1.20-3.40); #Monocytes 0.7 thou/uL (0.11-0.59); #Neutrophils 8.5 thou/uL (1.40-6.50); %Basophils 0.1 % (0.0-1.0); %Eosinophils 0.6 % (0.0-10.0); %Lymphocytes 7.6 % (21.0-51.0); %Neutrophils 84.6 % (42.0-75.0); Hemoglobin 8.7 g/dL (12.0-16.0); Mean Corpuscular HGB CONC 32.6 g/dL (32.0-36.0); Mean Corpuscular Hemoglobin 28.8 pg (27.0-31.0); Mean Corpuscular Volume 88.5 fl (81.0-99.0); Platelet Count 397 thou/uL (130-400); RBC Distribution Width 14.4 % (11.5-14.5); Red Blood Cell (RBC) Count 3.02 mill/uL (4.20-5.40); White Blood Cell (WBC) Count 10.1 thou/uL (4.8-10.8)
[2017-05-11 05:36] LABS: Anion Gap 11 mmol/L (10-20); BUN (Urea Nitrogen) 13 mg/dL (9.8-20.1); CK (CPK) 189 U/L (29-168); Calc. Creatinine Clearance 55 mL/min (70-130); Calcium 7.9 mg/dL (7.8-10.44); Carbon Dioxide 22 mmol/L (23-31); Chloride 110 mmol/L (98-107); Estimated GFR-MDRD 87; Glucose 180 mg/dL (83-110); Magnesium 1.6 mg/dL (1.6-2.6); Phosphorus 2.3 mg/dL (2.3-4.7); Potassium 3.3 mmol/L (3.5-5.1); Sodium 140 mmol/L (136-145)
[2017-05-11] MEDS: Saccharomyces boulardii 250 MG CAP PER TUBE SCH (07:59)
[2017-05-11] MEDS: Metoprolol Tartrate 25 MG TAB PER TUBE SCH ×2 (07:59→20:29)
[2017-05-11] MEDS: Amoxicillin/Potassium Clav 875 MG TAB PER TUBE SCH ×2 (07:59→20:28)
[2017-05-11] MEDS: Pantoprazole 40 MG GRANULES PACKET PER TUBE SCH (07:59)
--- NOTE | 2017-05-11 09:30 | PDOC.PN ---
- Subjective Encounter Start Date: 05/11/17 Encounter Start Time: 07:00 Patient seen and examined. No new complaints. No overnight events - Objective Resuscitation Status: Resuscitation Status FULL:Full Resuscitation MAR Reviewed: Yes Vital Signs & Weight: Vital Signs (12 hours) Temp Pulse Resp BP Pulse Ox 05/11/17 08:00 99.5 F 99 20 05/11/17 07:25 99.5 F 99 20 146/70 H 98 Weight Weight 152 lb I&O: 05/10/17 05/11/17 05/12/17 06:59 06:59 06:59 Intake Total 3380 Output Total 2450 Balance 930 Result Diagrams: 05/11/17 04:43 05/11/17 04:43 Phys Exam - Physical Examination Constitutional: NAD HEENT: PERRLA, moist MMs, sclera anicteric Neck: no JVD, supple Respiratory: no wheezing, no rales, no rhonchi Cardiovascular: RRR, no significant murmur, no rub Gastrointestinal: soft, non-tender, no distention, positive bowel sounds peg Musculoskeletal: no edema, pulses present Neurological: moves all 4 limbs Psychiatric: normal affect Skin: no rash, normal turgor Dx/Plan (1) Acute respiratory failure with hypoxemia Code(s): J96.01 - ACUTE RESPIRATORY FAILURE WITH HYPOXIA Status: Acute (2) Anemia due to acute blood loss Code(s): D62 - ACUTE POSTHEMORRHAGIC ANEMIA Status: Acute (3) Coagulopathy Status: Acute (4) Community acquired bacterial pneumonia Code(s): J15.9 - UNSPECIFIED BACTERIAL PNEUMONIA Status: Acute (5) H/O fall Code(s): Z91.81 - HISTORY OF FALLING Status: Acute (6) Pelvic fracture Code(s): S32.9XXA - FRACTURE OF UNSP PARTS OF LUMBOSACRAL SPINE AND PELVIS, INIT Status: Acute (7) Physical deconditioning Code(s): R53.81 - OTHER MALAISE Status: Acute (8) Rhabdomyolysis Code(s): M62.82 - RHABDOMYOLYSIS Status: Acute (9) Sepsis with acute organ dysfunction Code(s): A41.9 - SEPSIS, UNSPECIFIED ORGANISM; R65.20 - SEVERE SEPSIS WITHOUT SEPTIC SHOCK Status: Acute (10) Syncope Code(s): R55 - SYNCOPE AND COLLAPSE Status: Acute (11) Transaminitis Code(s): R74.0 - NONSPEC ELEV OF LEVELS OF TRANSAMNS & LACTIC ACID DEHYDRGNSE Status: Acute (12) Upper GI bleed Code(s): K92.2 - GASTROINTESTINAL HEMORRHAGE, UNSPECIFIED Status: Acute (13) Hypertension Code(s): I10 - ESSENTIAL (PRIMARY) HYPERTENSION Status: Chronic (14) Hypoalbuminemia due to protein-calorie malnutrition Code(s): E46 - UNSPECIFIED PROTEIN-CALORIE MALNUTRITION Status: Chronic (15) Paroxysmal A-fib Code(s): I48.0 - PAROXYSMAL ATRIAL FIBRILLATION Status: Chronic (16) Dementia Code(s): F03.90 - UNSPECIFIED DEMENTIA WITHOUT BEHAVIORAL DISTURBANCE Status: Chronic (17) Constipation Code(s): K59.00 - CONSTIPATION, UNSPECIFIED Status: Resolved (18) Rib fracture Code(s): S22.39XA - FRACTURE OF ONE RIB, UNSP SIDE, INIT FOR CLOS FX Status: Acute (19) Oropharyngeal dysphagia Code(s): R13.12 - DYSPHAGIA, OROPHARYNGEAL PHASE Status: Acute Comment: s/p PEG (20) NSVT (nonsustained ventricular tachycardia) Code(s): I47.2 - VENTRICULAR TACHYCARDIA Status: Acute (21) Hypokalemia due to inadequate potassium intake Code(s): E87.6 - HYPOKALEMIA Status: Acute (22) Hypophosphatemia Code(s): E83.39 - OTHER DISORDERS OF PHOSPHORUS METABOLISM Status: Acute - Plan cont current plan of care, plan discussed w/ family, continue antibiotics, PT/OT , social psychologist * now stable * dc iv antibiotics * change to augmentin and levaquin * continue tube feeding * rehab placement if accepted today * medication reviewed as below * symptomatic treatment. Review of Systems - Review of Systems Other: not reliable due to dementia - Medications/Allergies Allergies/Adverse Reactions: Allergies Allergy/AdvReac Type Severity Reaction Status Date / Time No Known Drug Allergies Allergy Verified 04/29/17 23:48 Medications: Current Medications Acetaminophen (Tylenol) 650 mg PER TUBE Q4H PRN PRN Reason: Headache/Fever or Pain Al Hydroxide/Mg Hydroxide (Maalox) 30 ml PER TUBE Q6H PRN PRN Reason: Heartburn or Indigestion Amoxicillin/Clavulanate Potassium (Augmentin) 875 mg PER TUBE Q12HR [facility] Last Admin: 03/12/18 07:59 Dose: 875 mg Artificial Tears (Tears Naturale) 0 drop EA EYE PRN PRN PRN Reason: Dry Eyes Bisacodyl (Dulcolax) 10 mg [place] Q24H PRN PRN Reason: Constipation Clonidine (Sjfpzhtv-Nav-5 Patch) 0.1 mg TD Q7DAYS [facility] Last Admin: 05/08/17 10:40 Dose: 0.1 mg Guaifenesin (Robitussin Sf) 200 mg PER TUBE Q4H PRN PRN Reason: Cough Hydralazine HCl (Apresoline) 10 mg SLOW IVP Q4H PRN PRN Reason: Systolic BP > 180 Labetalol HCl (Normodyne) 20 mg SLOW IVP Q4H PRN PRN Reason: Systolic BP > 180 Levofloxacin (Levaquin) 500 mg PER TUBE 0600 [facility] Loratadine (Claritin) 10 mg PER TUBE DAILYPRN PRN PRN Reason: Sinus Symptoms Magnesium Hydroxide (Milk Of Magnesium) 30 ml PO DAILYPRN PRN PRN Reason: Constipation Metoprolol Tartrate (Lopressor) 25 mg PER TUBE BID [facility] Last Admin: 05/11/17 07:59 Dose: 25 mg Mineral Oil/White Petrolatum (Eucerin Cream) 0 gm TOP BIDPRN PRN PRN Reason: Dry Skin Nitroglycerin (Nitrostat) 0.4 mg SL Q5MIN PRN PRN Reason: Chest Pain Ondansetron HCl (Zofran) 4 mg IVP Q6H PRN PRN Reason: Nausea/Vomiting Ondansetron HCl (Zofran Odt) 4 mg PER TUBE Q6H PRN PRN Reason: Nausea/Vomiting Pantoprazole Sodium (Protonix) 40 mg PER TUBE DAILY [facility] Last Admin: 05/11/17 07:59 Dose: 40 mg Phenol (Chloraseptic [place] 180 Ml Bot) 0 ml PO PRN PRN PRN Reason: Sore Throat Polyethylene Glycol (Miralax) 17 gm PER TUBE DAILY PRN PRN Reason: Constipation Potassium Chloride (Klor-Con) 20 meq PER TUBE BID[facility] Last Admin: 05/11/17 07:59 Dose: 20 meq Saccharomyces Boulardii (Florastor) 250 mg PER TUBE DAILY [facility] Last Admin: 05/11/17 07:59 Dose: 250 mg Senna (Senokot) 2 tab PO HSPRN PRN PRN Reason: Constipation Simethicone (Mylicon Chewable) 80 mg PER TUBE TID PRN PRN Reason: Gas Pain Sodium Chloride ([place] Nasal [place] 0.65%) 0 ml EA NARE QIDPRN PRN PRN Reason: Nasal Congestion Sodium Chloride (Flush - Normal Saline) 10 ml IVF Q12HR [facility] Last Admin: 05/10/17 20:33 Dose: 10 ml Sodium Chloride (Flush - Normal Saline) 10 ml IVF PRN PRN PRN Reason: Saline Flush Last Admin: 05/10/17 20:34 Dose: 10 ml
[2017-05-11 13:28] VITALS: BMI 21.2
[2017-05-12] MEDS: Saccharomyces boulardii 250 MG CAP PER TUBE SCH (08:37)
[2017-05-12] MEDS: Pantoprazole 40 MG GRANULES PACKET PER TUBE SCH (08:37)
[2017-05-12] MEDS: Metoprolol Tartrate 25 MG TAB PER TUBE SCH (08:37)
[2017-05-12] MEDS: Amoxicillin/Potassium Clav 875 MG TAB PER TUBE SCH (08:37)
--- NOTE | 2017-05-12 08:55 | PDOC.PN ---
- Subjective Encounter Start Date: 05/12/17 Encounter Start Time: 07:00 Patient seen and examined. No new complaints. No overnight events - Objective Resuscitation Status: Resuscitation Status FULL:Full Resuscitation MAR Reviewed: Yes Vital Signs & Weight: Vital Signs (12 hours) Temp Pulse Resp BP Pulse Ox 05/12/17 08:00 98.8 F 102 H 18 166/74 H 98 Weight Admit Weight 140 lb 1.6 oz Weight 153 lb 3 oz I&O: 05/11/17 05/12/17 05/13/17 06:59 06:59 06:59 Intake Total 3380 1300 Output Total 2450 500 Balance 930 800 Result Diagrams: 05/11/17 04:43 05/11/17 04:43 Phys Exam - Physical Examination Constitutional: NAD HEENT: PERRLA, moist MMs, sclera anicteric Neck: no JVD, supple Respiratory: no wheezing, no rales, no rhonchi Cardiovascular: RRR, no significant murmur, no rub Gastrointestinal: soft, non-tender, no distention, positive bowel sounds peg+ Musculoskeletal: no edema, pulses present Neurological: non-focal, normal sensation Psychiatric: normal affect, A&O x 3 Skin: no rash, normal turgor Dx/Plan (1) Acute respiratory failure with hypoxemia Code(s): J96.01 - ACUTE RESPIRATORY FAILURE WITH HYPOXIA Status: Acute (2) Anemia due to acute blood loss Code(s): D62 - ACUTE POSTHEMORRHAGIC ANEMIA Status: Acute (3) Coagulopathy Status: Acute (4) Community acquired bacterial pneumonia Code(s): J15.9 - UNSPECIFIED BACTERIAL PNEUMONIA Status: Acute (5) H/O fall Code(s): Z91.81 - HISTORY OF FALLING Status: Acute (6) Pelvic fracture Code(s): S32.9XXA - FRACTURE OF UNSP PARTS OF LUMBOSACRAL SPINE AND PELVIS, INIT Status: Acute (7) Physical deconditioning Code(s): R53.81 - OTHER MALAISE Status: Acute (8) Rhabdomyolysis Code(s): M62.82 - RHABDOMYOLYSIS Status: Acute (9) Sepsis with acute organ dysfunction Code(s): A41.9 - SEPSIS, UNSPECIFIED ORGANISM; R65.20 - SEVERE SEPSIS WITHOUT SEPTIC SHOCK Status: Acute (10) Syncope Code(s): R55 - SYNCOPE AND COLLAPSE Status: Acute (11) Transaminitis Code(s): R74.0 - NONSPEC ELEV OF LEVELS OF TRANSAMNS & LACTIC ACID DEHYDRGNSE Status: Acute (12) Upper GI bleed Code(s): K92.2 - GASTROINTESTINAL HEMORRHAGE, UNSPECIFIED Status: Acute (13) Hypertension Code(s): I10 - ESSENTIAL (PRIMARY) HYPERTENSION Status: Chronic (14) Hypoalbuminemia due to protein-calorie malnutrition Code(s): E46 - UNSPECIFIED PROTEIN-CALORIE MALNUTRITION Status: Chronic (15) Paroxysmal A-fib Code(s): I48.0 - PAROXYSMAL ATRIAL FIBRILLATION Status: Chronic (16) Dementia Code(s): F03.90 - UNSPECIFIED DEMENTIA WITHOUT BEHAVIORAL DISTURBANCE Status: Chronic (17) Constipation Code(s): K59.00 - CONSTIPATION, UNSPECIFIED Status: Resolved (18) Rib fracture Code(s): S22.39XA - FRACTURE OF ONE RIB, UNSP SIDE, INIT FOR CLOS FX Status: Acute (19) Oropharyngeal dysphagia Code(s): R13.12 - DYSPHAGIA, OROPHARYNGEAL PHASE Status: Acute Comment: s/p PEG (20) NSVT (nonsustained ventricular tachycardia) Code(s): I47.2 - VENTRICULAR TACHYCARDIA Status: Acute (21) Hypokalemia due to inadequate potassium intake Code(s): E87.6 - HYPOKALEMIA Status: Acute (22) Hypophosphatemia Code(s): E83.39 - OTHER DISORDERS OF PHOSPHORUS METABOLISM Status: Acute - Plan cont current plan of care, plan discussed w/ family, 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 Review of Systems - Review of Systems Eyes: negative: Pain, Vision Change, Conjunctivae Inflammation, Eyelid Inflammation, Redness, Other ENT: negative: Ear Pain, Ear Discharge, Nose Pain, Nose Discharge, Nose Congestion, Mouth Pain, Mouth Swelling, Throat Pain, Throat Swelling, Other Respiratory: negative: Cough, Dry, Shortness of Breath, Hemoptysis, SOB with Excertion, Pleuritic Pain, Sputum, Wheezing Cardiovascular: negative: chest pain, palpitations, orthopnea, paroxysmal nocturnal dyspnea, edema, light headedness, other Gastrointestinal: negative: Nausea, Vomiting, Abdominal Pain, Diarrhea, Constipation, Melena, Hematochezia, Other Genitourinary: negative: Dysuria, Frequency, Incontinence, Hematuria, Retention , Other Musculoskeletal: negative: Neck Pain, Shoulder Pain, Arm Pain, Back Pain, Hand Pain, Leg Pain, Foot Pain, Other Skin: negative: Rash, Lesions, Lars, Bruising, Other Other: not reliable due to dementia - Medications/Allergies Allergies/Adverse Reactions: Allergies Allergy/AdvReac Type Severity Reaction Status Date / Time No Known Drug Allergies Allergy Verified 04/29/17 23:48 Medications: Current Medications Acetaminophen (Tylenol) 650 mg PER TUBE Q4H PRN PRN Reason: Headache/Fever or Pain Al Hydroxide/Mg Hydroxide (Maalox) 30 ml PER TUBE Q6H PRN PRN Reason: Heartburn or Indigestion Amoxicillin/Clavulanate Potassium (Augmentin) 875 mg PER TUBE Q12HR [facility] Last Admin: 05/12/17 08:37 Dose: 875 mg Artificial Tears (Tears Naturale) 0 drop EA EYE PRN PRN PRN Reason: Dry Eyes Bisacodyl (Dulcolax) 10 mg NJ Q24H PRN PRN Reason: Constipation Clonidine (Prkbcafl-Khf-5 Patch) 0.1 mg TD Q7DAYS [facility] Last Admin: 05/08/17 10:40 Dose: 0.1 mg Guaifenesin (Robitussin Sf) 200 mg PER TUBE Q4H PRN PRN Reason: Cough Hydralazine HCl (Apresoline) 10 mg SLOW IVP Q4H PRN PRN Reason: Systolic BP > 180 Labetalol HCl (Normodyne) 20 mg SLOW IVP Q4H PRN PRN Reason: Systolic BP > 180 Levofloxacin (Levaquin) 500 mg PER TUBE 0600 [facility] Last Admin: 05/12/17 05:41 Dose: 500 mg Loratadine (Claritin) 10 mg PER TUBE DAILYPRN PRN PRN Reason: Sinus Symptoms Magnesium Hydroxide (Milk Of Magnesium) 30 ml PO DAILYPRN PRN PRN Reason: Constipation Metoprolol Tartrate (Lopressor) 25 mg PER TUBE BID [facility] Last Admin: 05/12/17 08:37 Dose: 25 mg Mineral Oil/White Petrolatum (Eucerin Cream) 0 gm TOP BIDPRN PRN PRN Reason: Dry Skin Nitroglycerin (Nitrostat) 0.4 mg SL Q5MIN PRN PRN Reason: Chest Pain Ondansetron HCl (Zofran) 4 mg IVP Q6H PRN PRN Reason: Nausea/Vomiting Ondansetron HCl (Zofran Odt) 4 mg PER TUBE Q6H PRN PRN Reason: Nausea/Vomiting Pantoprazole Sodium (Protonix) 40 mg PER TUBE DAILY [facility] Last Admin: 05/12/17 08:37 Dose: 40 mg Phenol (Chloraseptic Bow[place] 180 Ml Bot) 0 ml PO PRN PRN PRN Reason: Sore Throat Polyethylene Glycol (Miralax) 17 gm PER TUBE DAILY PRN PRN Reason: Constipation Potassium Chloride (Klor-Con) 20 meq PER TUBE BID-WM [facility] Last Admin: 05/12/17 08:36 Dose: 20 meq Saccharomyces Boulardii (Florastor) 250 mg PER TUBE DAILY [facility] Last Admin: 05/12/17 08:37 Dose: 250 mg Senna (Senokot) 2 tab PO HSPRN PRN PRN Reason: Constipation Simethicone (Mylicon Chewable) 80 mg PER TUBE TID PRN PRN Reason: Gas Pain Sodium Chloride (Cadiz Nasal [place] 0.65%) 0 ml EA NARE QIDPRN PRN PRN Reason: Nasal Congestion Sodium Chloride (Flush - Normal Saline) 10 ml IVF Q12HR [facility] Last Admin: 05/12/17 08:37 Dose: 10 ml Sodium Chloride (Flush - Normal Saline) 10 ml IVF PRN PRN PRN Reason: Saline Flush Last Admin: 05/10/17 20:34 Dose: 10 ml
--- NOTE | 2017-05-12 10:17 | DIS ---
DATE OF ADMISSION: 05/05/2017 DATE OF DISCHARGE: 05/12/2017 PRIMARY CARE PHYSICIAN: Dr. Otilio Hathaway. DISCHARGE DISPOSITION: Rehabilitation. PRIMARY DISCHARGE DIAGNOSES: 1. Mechanical fall at home. 2. Syncope at home. 3. Orthostatic hypotension at home. 4. Upper gastrointestinal bleed at home. 5. Anemia due to acute blood loss. 6. Hypoalbuminemia due to protein calorie malnutrition. 7. Aspiration pneumonia. 8. Acute respiratory failure with hypoxia. 9. Pelvic fracture. 10. Rib fracture. 11. Coagulopathy due to sepsis. 12. Oropharyngeal dysphagia due to dementia. 13. Status post upper endoscopy. 14. Status post percutaneous endoscopic gastrostomy tube placement. 15. Constipation. 16. Dementia. 17. Sepsis with acute organ dysfunction. 18. Transaminitis due to sepsis. SECONDARY DISCHARGE DIAGNOSES: Paroxysmal atrial fibrillation and hypertension. PRIMARY PROCEDURE/OPERATION: Upper endoscopy and PEG tube placement. RADIOLOGICAL INVESTIGATION: Echocardiography showed EF 55%, diastolic dysfunction. Abdomen and pelv is CT scan showed consolidation in the right lung base, pelvic fracture. CT brain negative for any a cute intracranial process showed cortical atrophy. SIGNIFICANT LABORATORY DATA: WBC 10.1, hemoglobin 8.7, platelets 397. INR 1.4. Sodium 140, creatin ine 0.76. Urinalysis; blood large, blood culture and urine culture negative. Stool for guaiac posit yamel. DISCHARGE MEDICATIONS: Tylenol 500 mg q.4 hourly p.r.n., Augmentin 875 mg per tube twice daily for 5 more days, aspirin 81 mg per tube daily, Dulcolax 10 mg per rectum daily p.r.n., Tums 500 mg per tub e t.i.d. p.r.n., Catapres 0.1 mg per tube q.6 hourly p.r.n., clonidine patch 0.1 mg every 7 days, Duo Neb q.8 hourly p.r.n., Levaquin 500 mg per tube daily for 5 more days, Lopressor 25 mg per tube twice daily, multivitamin one tablet per tube daily, nifedipine 10 mg per tube t.i.d., Protonix 40 mg per tube daily, MiraLax 17 mg per tube daily, potassium chloride 20 mEq per tube daily, Florastor 250 mg per tube daily, Mylicon 80 mg per tube t.i.d. p.r.n., tramadol 50 mg per tube q.6 hourly p.r.n., traz odone 50 mg per tube at bedtime p.r.n. CONTRAINDICATIONS: The patient is not on anticoagulation therapy in view of atrial fibrillation santi use of GI bleed. TEST RESULTS PENDING ON DISCHARGE: None. ALLERGIES: No known drug allergy. DISCHARGE PLAN: Post hospital, patient is discharged to rehabilitation. HOSPITAL COURSE: This patient had mechanical fall and at that time retrospectively, we are attributi ng that fall related with syncope due to GI bleed. She had a fall and subsequently rib fracture diag nosed at [facility], but after discharged from the ER, patient continued to have pain and that is why she required visit in our emergency room. She was found with a pelvic fracture and she was admitted under Trauma Service and subsequently discharged to rehabilitation. At rehabilitation, patient started having chest pain, shortness of breath, and low blood pressure and weakness that is why CT angio was done which showed pneumonia, but no PE. They started IV Rocephin, azithromycin without any significant improvement, and they did speech evaluation and at that time, p atient was found with low hemoglobin and patient was sent to ER. In the emergency room, patient was found with severe anemia, we suspected gastrointestinal bleed base d on guaiac positive. GI was consulted and they did upper endoscopy. At that time, there was no obv ious source of bleeding. Colonoscopy was not done because of patient's overall weakness. She was gi juvenal total of 4 units of blood transfusion while in hospital for blood loss. She was monitored on telemetry floor. Upon stabilization, patient was transferred to medical floor. At telemetry floor, patient had nonsustained ventricular tachycardia that was related with hypokalem ia and hypophosphatemia, which was replaced while in hospital. Patient also had pneumonia which we were asked suspecting from aspiration pneumonia and that is why s he was receiving vancomycin, Zosyn, and Levaquin. On discharge, we are changing to Augmentin and Lev aquin for another 5 days. During entire hospital course, she was receiving antibiotics and she had s ignificant improvement in her pneumonia. She had hypoxic respiratory failure, sepsis with acute organ dysfunction that was also resolved by th e time of discharge. Patient also had oropharyngeal dysphagia and she failed swallow evaluation and swallow treatment and that is why we consulted Speech Therapy and Speech Therapy recommended that the patient was not safe and at that time, we discussed with the family member about PEG tube option and they agreed to kendall d and we consulted GI and they did PEG tube placement. After that, we started tube feeding and she w as tolerating well. Initially, patient was given IV fluid and electrolyte was replaced. Subsequently, when patient was o n tube feeding at that time we stopped IV fluid as well as electrolyte was replaced through the tube. All medication changed via tube and the patient is tolerating well. Overall, this patient is doing very well. On the day of discharge, the patient is seen and examined at bedside today. Please see my progress note from today. Paperwork for FMLA done. Discharge medication reconciliation done. Discharge paperwork done. Total time spent on discharge day more than 30 minutes.
[2017-05-12 12:33] VITALS: TEMP 98.9
[2017-05-12 13:20] VITALS: BP 142/64
== END 2017-05-12 14:00 | DRG 871 ==
LOC: ERS 10:24 → ERHOLD 12:19 → 2NO 15:24 → ONC 05-09 11:49
PROVIDERS: ADMIT Internal Medicine; ATTEND Internal Medicine
PROC: 30233N1 Transfusion of Nonautologous Red Blood Cells into Peripheral Vein, Percutaneous Approach (ICD-10-PCS; 2017-05-05)
PROC: 30233N1 Transfusion of Nonautologous Red Blood Cells into Peripheral Vein, Percutaneous Approach (ICD-10-PCS; 2017-05-05)
PROC: 0DJ08ZZ Inspection of Upper Intestinal Tract, Via Natural or Artificial Opening Endoscopic (ICD-10-PCS; 2017-05-06)
PROC: 0DH63UZ Insertion of Feeding Device into Stomach, Percutaneous Approach (ICD-10-PCS; principal; 2017-05-09)
PROC: 3E0G76Z Introduction of Nutritional Substance into Upper GI, Via Natural or Artificial Opening (ICD-10-PCS; 2017-05-09)
DX: A41.9 Sepsis, unspecified organism (principal); J69.0 Pneumonitis due to inhalation of food and vomit; J96.01 Acute respiratory failure with hypoxia; I47.2 Ventricular tachycardia; E46 Unspecified protein-calorie malnutrition; E83.39 Other disorders of phosphorus metabolism; D62 Acute posthemorrhagic anemia; E88.09 Other disorders of plasma-protein metabolism, not elsewhere classified; I48.0 Paroxysmal atrial fibrillation; K92.2 Gastrointestinal hemorrhage, unspecified; M62.82 Rhabdomyolysis; R65.20 Severe sepsis without septic shock; Z79.01 Long term (current) use of anticoagulants; S32.9XXD Fracture of unspecified parts of lumbosacral spine and pelvis, subsequent encounter for fracture with routine healing; S22.39XD Fracture of one rib, unspecified side, subsequent encounter for fracture with routine healing; W18.30XD Fall on same level, unspecified, subsequent encounter; Z91.81 History of falling; J44.9 Chronic obstructive pulmonary disease, unspecified; K59.09 Other constipation; I10 Essential (primary) hypertension; Z87.891 Personal history of nicotine dependence; Z68.21 Body mass index [BMI] 21.0-21.9, adult; F03.90 Unspecified dementia, unspecified severity, without behavioral disturbance, psychotic disturbance, mood disturbance, and anxiety; R13.12 Dysphagia, oropharyngeal phase; E87.6 Hypokalemia; K29.70 Gastritis, unspecified, without bleeding; K63.5 Polyp of colon
CPT/HCPCS: 36415; 36430; 70450; 71045; 71275; 74177; 80048; 80053; 80069; 80202; 81001; 82274; 82550; 82553; 83605; 83735; 83880; 84100; 84484; 85025; 85379; 85610; 85730; 86850; 86900; 86901; 87040; 87086; 90471; 90682; 93005; 93306; 96361; 96365; 96366; 96367; 96375; A4216; C9113; G0008; G8978-GP-CL; G8979-GP-CJ; G8987-GO-CM; G8988-GO-CK; G8996-GN-CN; G8997-GN-CK; G8997-GN-CN; J0456; J0696; J1160; J1940; J1956; J2001; J2543; J2704; J3370; J3430; J3475; J7050; J7620; P9016; Q2036

== ENCOUNTER 2017-06-01 16:56 | Emergency (ER) | payer MEDICARE ==
[2017-06-01 17:33] LABS: #Basophils 0.1 thou/uL (0.0-0.2); #Eosinphils 0.1 thou/uL (0.0-0.7); #Lymphocytes 1.4 thou/uL (1.20-3.40); #Monocytes 0.7 thou/uL (0.11-0.59); #Neutrophils 6.3 thou/uL (1.40-6.50); %Basophils 0.7 % (0.0-1.0); %Lymphocytes 16.8 % (21.0-51.0); %Monocytes 7.7 % (0.0-10.0); %Neutrophils 73.8 % (42.0-75.0); Mean Corpuscular HGB CONC 30.8 g/dL (32.0-36.0); Mean Corpuscular Hemoglobin 27.3 pg (27.0-31.0); Mean Corpuscular Volume 88.6 fl (81.0-99.0); Mean Platelet Volume 7.9 fL (7.4-10.4); Platelet Count 335 thou/uL (130-400); RBC Distribution Width 14.9 % (11.5-14.5); Red Blood Cell (RBC) Count 3.66 mill/uL (4.20-5.40); White Blood Cell (WBC) Count 8.5 thou/uL (4.8-10.8)
[2017-06-01 17:53] LABS: ALT (SGPT) 12 U/L (8-55); AST (SGOT) 19 U/L (5-34); Albumin 3.6 g/dL (3.4-4.8); Alkaline Phosphatase 130 U/L (40-150); Anion Gap 13 mmol/L (10-20); BUN (Urea Nitrogen) 38 mg/dL (9.8-20.1); Bilirubin, Total 0.5 mg/dL (0.2-1.2); CK (CPK) 66 U/L (29-168); Calc. Creatinine Clearance 0 mL/min (70-130); Calcium 9.5 mg/dL (7.8-10.44); Carbon Dioxide 27 mmol/L (23-31); Chloride 96 mmol/L (98-107); Estimated GFR-MDRD 44; Globulin 4.4 g/dL (2.4-3.5); Glucose 123 mg/dL (83-110); Potassium 4.1 mmol/L (3.5-5.1); Sodium 132 mmol/L (136-145)
[2017-06-01 17:56] LABS: CKMB 1.2 ng/mL (0-6.6); Troponin I 0.012 ng/mL (< 0.028)
[2017-06-01 18:29] LABS: Bilirubin Negative (Negative); Blood, Urine Negative (Negative); Clarity CLEAR (Clear); Glucose, Urine (Dipstick) Negative (Negative); Leukocyte Negative (Negative); Nitrite Negative (Negative); Protein, Urine (Dipstick) Negative (Neg-Trace); Specific Gravity, Urine 1.014 (1.002-1.036); Urobilinogen 0.2 mg/dL (0.2-1.0)
--- NOTE | 2017-06-01 19:12 | RAD ---
PORTABLE CHEST: HISTORY: Lethargy with weakness. Tachycardia. Mental status change. COMPARISON: 05/16/2017 FINDINGS: The lungs appear clear and aerated. There is no focal infiltrate or vascular congestion noted. Hear t size is within the normal range. Old right-sided fractures again noted. IMPRESSION: No acute lung process. POS: AGW
== END 2017-06-01 19:24 | disposition home or self-care (01) ==
LOC: ERS 16:56
DX: I49.3 Ventricular premature depolarization (principal); K59.00 Constipation, unspecified; I48.91 Unspecified atrial fibrillation; J44.9 Chronic obstructive pulmonary disease, unspecified; I10 Essential (primary) hypertension; E11.9 Type 2 diabetes mellitus without complications; Z87.891 Personal history of nicotine dependence; Z79.899 Other long term (current) drug therapy
CPT/HCPCS: 36415; 51701; 71045; 80053; 81003; 82550; 82553; 83605; 84484; 85025; 93005; A4353

== ENCOUNTER 2017-06-11 10:29 | Emergency (ER) | payer MEDICARE, MEDICAID ==
[2017-06-11 11:20] LABS: #Eosinphils 0.1 thou/uL (0.0-0.7); #Lymphocytes 1.4 thou/uL (1.20-3.40); #Monocytes 0.5 thou/uL (0.11-0.59); #Neutrophils 4.4 thou/uL (1.40-6.50); %Basophils 0.6 % (0.0-1.0); %Eosinophils 1.2 % (0.0-10.0); %Lymphocytes 22.4 % (21.0-51.0); %Monocytes 7.6 % (0.0-10.0); %Neutrophils 68.2 % (42.0-75.0); Hemoglobin 10.5 g/dL (12.0-16.0); Mean Corpuscular HGB CONC 31.1 g/dL (32.0-36.0); Mean Corpuscular Hemoglobin 27.9 pg (27.0-31.0); Mean Corpuscular Volume 89.5 fl (81.0-99.0); Mean Platelet Volume 9.1 fL (7.4-10.4); Platelet Count 220 thou/uL (130-400); RBC Distribution Width 14.7 % (11.5-14.5); Red Blood Cell (RBC) Count 3.77 mill/uL (4.20-5.40); White Blood Cell (WBC) Count 6.4 thou/uL (4.8-10.8)
[2017-06-11 11:42] LABS: ALT (SGPT) 10 U/L (8-55); AST (SGOT) 19 U/L (5-34); Albumin 3.8 g/dL (3.4-4.8); Alkaline Phosphatase 93 U/L (40-150); Anion Gap 16 mmol/L (10-20); BUN (Urea Nitrogen) 40 mg/dL (9.8-20.1); Bilirubin, Total 0.5 mg/dL (0.2-1.2); Calc. Creatinine Clearance 0 mL/min (70-130); Calcium 10.2 mg/dL (7.8-10.44); Carbon Dioxide 26 mmol/L (23-31); Chloride 101 mmol/L (98-107); Estimated GFR-MDRD 47; Globulin 4.4 g/dL (2.4-3.5); Glucose 154 mg/dL (83-110); Potassium 4.6 mmol/L (3.5-5.1); Protein, Total 8.2 g/dL (6.0-8.3); Sodium 138 mmol/L (136-145)
[2017-06-11 13:41] LABS: Bilirubin Negative (Negative); Blood, Urine Negative (Negative); Clarity CLEAR (Clear); Glucose, Urine (Dipstick) Negative (Negative); Leukocyte Negative (Negative); Nitrite Negative (Negative); Protein, Urine (Dipstick) Negative (Neg-Trace); Specific Gravity, Urine 1.015 (1.002-1.036); Urobilinogen 0.2 mg/dL (0.2-1.0); pH, Urine 5.5 (5.0-9.0)
== END 2017-06-11 13:58 | disposition home or self-care (01) ==
LOC: ERS 10:29
DX: R10.9 Unspecified abdominal pain (principal); J44.9 Chronic obstructive pulmonary disease, unspecified; I10 Essential (primary) hypertension; Z87.891 Personal history of nicotine dependence
CPT/HCPCS: 36415; 51701; 80053; 81003; 85025; 87086; A4353

== ENCOUNTER 2017-06-26 08:08 | Outpatient (CLI) | payer MEDICARE ==
--- NOTE | 2017-06-26 13:49 | PRG ---
DATE OF SERVICE: 06/26/2017 CHIEF COMPLAINT: Wounds to bilateral heels. HISTORY OF PRESENT ILLNESS: An 87-year-old female presents today with concern of ulcers to bilateral heels, this started back in April around the . She had a fall and went into a rehab facility af terwards after they determined that she had broken several ribs in pelvis. [facility], she developed these wounds on her heels, being treated with drying agents and bandages, plus us e of Multi-Podus offloading boots. She does have home health care, which is changing the dressing ab out once a week and they are keeping it dry. Denies any pain associated with the wounds. Denies armaan sea, vomiting, fevers or chills. Past medical history, past surgical history, medications, allergies, social history, and family histo ry can be reviewed in the paper [facility]. REVIEW OF SYSTEMS: Constitutional: Denies nausea, vomiting, fevers or chills. Integumentary: Open bedsores to the both heels. PHYSICAL EXAMINATION: VITAL SIGNS: Temperature 97.9, pulse 109, respirations 18, blood pressure 130/63. Blood sugar was 9 8. VASCULAR: Dorsalis pedis, posterior tibial pulses are palpable bilaterally. Immediate capillary parviz l time to the distal aspect of the toes. NEUROLOGIC: Light touch and protective threshold grossly intact. DERMATOLOGIC: Left heel pressure ulceration measuring 2.5 x 3.0 cm with no depth. There is 100% esc courtney, which is dry and stable. No drainage noted. Ulceration to the right heel measuring 3 cm x 2.8 cm x 0.1 cm with 50% eschar with about 50% superficial granulation tissue, minimal serosanguineous dr martinez. No periwound erythema, edema, or warmth. Eschar that is present is stable and well adhered. ASSESSMENT: Unstageable pressure ulcerations to bilateral heels. PLAN: 1. Evaluation of the wounds, determined no debridement necessary at this time. 2. We are going to continue with keeping a dry dressing on these wounds or using a skin protectant, which can be continued and then a Mepilex island dressing. 3. The most important thing at this time is keeping the pressure off the wound, so she should contin ue to use the Multi-Podus offloading boots at all times. 4. I will have her follow up in 2 weeks for close monitoring and reevaluation and determine if any d ebridement is necessary or changes in treatment plan.
== END 2017-06-26 08:09 | disposition home or self-care (01) ==
LOC: WCC 08:08
PROVIDERS: ATTEND Family Medicine
DX: L89.620 Pressure ulcer of left heel, unstageable (principal); L89.610 Pressure ulcer of right heel, unstageable
CPT/HCPCS: 36416

== ENCOUNTER 2017-07-17 10:52 | Outpatient (CLI) | payer MEDICARE ==
--- NOTE | 2017-07-17 14:11 | PRG ---
DATE OF SERVICE: 07/17/2017 SUBJECTIVE: This is an 87-year-old female, who presents to clinic today for followup of bilateral he el ulcerations. Has been using Mepilex border dressings, bilateral heels with Multi-Podus offloading boots for the last 3 weeks. She states that she has recently been seen by her social media marketing specialist and they are going to be working on the circuiting and improving the circulation to both legs starting with t he right leg first, denies any nausea, vomiting, fevers or chills. OBJECTIVE: Ulceration right heel measuring 2.5 cm x 2.5 cm, 50% eschar, 20% slough, 30% granulation tissue. No periwound erythema, edema, or warmth, no drainage at this time. The eschar is unstable a nd loose around the edges. A second ulceration on the left posterior heel measuring 3.5 cm x 3.5 cm x 0.2 cm with 100% eschar with loose unstable borders to this eschar as well. It does not probe to d eeper tissue or bone. No periwound erythema, edema, or warmth. ASSESSMENT: Unstageable pressure ulcerations to bilateral heels without signs of infection. PLAN: 1. Full thickness debridement of subcutaneous tissue layer as well as removing all eschar from bilat eral wounds with a 15 blade. The patient tolerated the procedure well. 2. For the right foot wound due to the amount of granulation tissue that is present, we are going to start with a collagen dressing change should be done on a daily basis to the left foot. We will use Aquacel AG to continue to keep this dry and noninfected. This can be changed every 2-3 days. She i s to continue with the Multi-Podus boots. Follow up with me in 3 weeks.
== END 2017-07-17 10:53 | disposition home or self-care (01) ==
LOC: WCC 10:52
PROVIDERS: ATTEND Podiatrist Foot & Ankle Surgery
DX: L89.610 Pressure ulcer of right heel, unstageable (principal); L89.620 Pressure ulcer of left heel, unstageable
CPT/HCPCS: 36416

== ENCOUNTER 2017-08-07 10:05 | Outpatient (CLI) | payer MEDICARE ==
--- NOTE | 2017-08-07 11:38 | PRG ---
DATE OF SERVICE: 08/07/2017 SUBJECTIVE: An 87-year-old female who returns today for followup of bilateral pressure ulcerations o n bilateral heels. She has been wearing the Multi Podus boots at all times. She has been getting Pr omogran dressing changes on a daily basis on the right heel and Aquacel AG, gauze and Kerlix on the l eft heel every 3 days. The patient has had no problems since last visit. Denies nausea, vomiting, f kvng or chills. PHYSICAL EXAMINATION: Ulceration, left heel measures 3.3 cm x 3.2 cm x 0.1 cm, 90%, eschar, 10% gran ulation tissue around the border. The eschar is unstable. No periwound erythema, edema or warmth. There is some periwound hyperkeratosis. Right heel measures 2.2 cm x 3.7 cm. It is 50% slough, 50% granulation tissue. There is some periwound hyperkeratosis. No periwound erythema, edema or warmth. ASSESSMENT: 1. Pressure ulcerations unstageable to bilateral heels. 2. Diabetes with peripheral neuropathy. PLAN: 1. Full thickness debridement of subcutaneous tissue layer removing all nonviable tissues and biofil m from the wound base of the right foot. All unstable eschar was removed from the left heel and woun d base was debrided down to a bleeding granular wound base to the subcutaneous tissue layer as well i n this wound. 2. Going to switch to Promogran dressing changes every day on both heels with secondary gauze and Ke rlix dressing. She is still to continue using the Multi Podus boots at all times and she will follow up with me in 2 weeks.
== END 2017-08-07 10:06 | disposition home or self-care (01) ==
LOC: WCC 10:05
PROVIDERS: ATTEND Podiatrist Foot & Ankle Surgery
DX: E11.621 Type 2 diabetes mellitus with foot ulcer (principal); L89.620 Pressure ulcer of left heel, unstageable; L89.610 Pressure ulcer of right heel, unstageable; E11.42 Type 2 diabetes mellitus with diabetic polyneuropathy
CPT/HCPCS: 36416

== ENCOUNTER 2017-09-18 09:41 | Outpatient (CLI) | payer MEDICARE ==
--- NOTE | 2017-09-18 11:22 | PRG ---
DATE OF SERVICE: 09/18/2017 SUBJECTIVE: An 87-year-old female returns today for followup on bilateral pressure ulcers to the [facility], has been using a Podus boots at all times. Has been getting daily Promogran, 4 x [address] cabrales[address] They have also been applying calamine lotion to the periwound area, did have her revasculari zation procedure on the right foot recently and has plans in the next 2-3 weeks to have it performed on the left leg. Denies nausea, vomiting, fevers or chills. PHYSICAL EXAMINATION: Ulceration on the right heel has healed. There was a small amount of callus w hich on removal noted. No underlying ulceration. The left heel ulceration remains measuring 2.0 x 2 .2 x 1.5 cm. It is about 60% granular tissue and 40% slough. It does not probe to bone. No periwou nd erythema, edema or warmth. ASSESSMENT: 1. Unstageable pressure ulceration to the left heel. 2. Pressure ulcer to the right heel, stage 0, which has healed at this time. PLAN: 1. Full thickness debridement of the left heel ulceration, removing nonviable slough and eschar from the wound base. The patient tolerated the procedure well. 2. Going to continue with Promogram, 4 x 4s, and Kerlix dressing on this side. May use lotion to th e right heel to keep the skin supple. 3. She should continue the Podus boots at all times when in bed to keep pressure off the heels. 4. She will follow up with me in 2 weeks. I suspect that when she has revascularization on the left heel, we should start to see some improvement with this one.
== END 2017-09-18 09:42 | disposition home or self-care (01) ==
LOC: WCC 09:41
PROVIDERS: ATTEND Podiatrist Foot & Ankle Surgery
DX: L89.629 Pressure ulcer of left heel, unspecified stage (principal)
CPT/HCPCS: 36416

== ENCOUNTER 2017-10-02 10:17 | Outpatient (CLI) | payer MEDICARE, MEDICAID ==
[~2017-10-02 10:17] MED LIST changes: -ISOVUE-370 76%-LOCM 1 ML ONE; +Sodium Chloride 0.9% 15 ML NEB ONE
--- NOTE | 2017-10-02 12:04 | PRG ---
DATE OF SERVICE: 10/02/2017 SUBJECTIVE: An 87-year-old female who returns today for followup on left heel ulceration, right heel previously has healed. She has been continued on Promogran, 4 x 4s and Kerlix dressing changes on a daily basis. Has had no problems since she was last seen. She is scheduled to have surgery to open up the arteries on the left leg in approximately 2 weeks. Denies nausea, vomiting, fevers or chills . PHYSICAL EXAMINATION: Ulcer to the left posterior heel measuring 2.5 cm x 3.3 cm x 0.9 cm, 50% sloug h, 50% granular tissue. Does not probe to tendon or bone. No drainage, no malodor, no periwound ellen thema, edema or warmth. ASSESSMENT: Pressure ulceration to the left heel, stage 3. PLAN: 1. Full thickness debridement of the subcutaneous tissue layer removing some slough from the wound b ase as well as biofilm from the granular tissue base down to a bleeding granular wound base with derm al curette and 15 blade scalpel. 2. She is going to have her surgery and so I will have her follow up with me after she has her revas cularization. I expect that she will heal quickly following the procedure. 3. She is to return after the procedure or immediately should she have any problems or concerns befo re that time.
== END 2017-10-02 10:18 | disposition home or self-care (01) ==
LOC: WCC 10:17
PROVIDERS: ATTEND Podiatrist Foot & Ankle Surgery
DX: L89.623 Pressure ulcer of left heel, stage 3 (principal)
CPT/HCPCS: A4218

== ENCOUNTER 2017-10-05 16:32 | Emergency (ER) | payer MEDICARE, MEDICAID ==
--- NOTE | 2017-10-05 18:50 | RAD ---
2 AP VIEWS OF CHEST: Date: 10/05/17 INDICATION: History of chest pain and fall. COMPARISON: Prior exam dated 06/01/17. FINDINGS: Chronic lung changes are stable. Exam technique accentuates the cardiac silhouette. No definite pleur al effusion or pneumothorax is evident. There is stable healed deformity involving the right posterol ateral chest wall. Vascular calcifications of the aortic arch appear similar. IMPRESSION: No acute cardiopulmonary abnormality. POS: LEILA
--- NOTE | 2017-10-05 18:51 | RAD ---
AP VIEW PELVIS: Date: 10/05/17 INDICATION: History of fall. FINDINGS: There are healing left pubic body and right obturator ring fractures. There is diffuse osteopenia. No acute fracture is evident. There are scattered vascular calcifications. IMPRESSION: No acute osseous abnormality. POS: LEILA
--- NOTE | 2017-10-05 18:51 | RAD ---
3 VIEWS THORACIC SPINE: Date: 10/05/17 INDICATION: Fall with back pain. COMPARISON: None. IMPRESSION: There is diffuse osteopenia. There is moderate multilevel spondylosis. No acute fracture or subluxati on is demonstrated. POS: SIDDHARTHA
== END 2017-10-05 19:46 | disposition home or self-care (01) ==
LOC: ERS 16:32
DX: T14.8XXA Other injury of unspecified body region, initial encounter (principal); R07.89 Other chest pain; M25.559 Pain in unspecified hip; M79.632 Pain in left forearm; M79.631 Pain in right forearm; J44.9 Chronic obstructive pulmonary disease, unspecified; I48.91 Unspecified atrial fibrillation; I10 Essential (primary) hypertension; E11.9 Type 2 diabetes mellitus without complications; Z87.891 Personal history of nicotine dependence; Z79.899 Other long term (current) drug therapy; W18.30XA Fall on same level, unspecified, initial encounter
CPT/HCPCS: 71045; 72072; 72170

== ENCOUNTER 2017-10-23 10:42 | Outpatient (CLI) | payer MEDICARE, MEDICAID ==
--- NOTE | 2017-10-23 12:25 | PRG ---
DATE OF SERVICE: 10/23/2017 SUBJECTIVE: This is an 87-year-old female, returns today for followup of pressure ulceration, left h eel. She states the last week she did have her revascularization procedure performed of that left fo ot and it was successful. Denies any nausea, vomiting, fevers, chills at this time. PHYSICAL EXAMINATION: Ulceration to the left heel, measuring 2 cm x 2.5 cm x 1 cm depth. There is 5 0% granulation tissue and 50% slough. No periwound erythema, edema, or warmth. ASSESSMENT: 1. Pressure ulceration to the left heel. 2. Peripheral vascular disease, status post revascularization. PLAN: 1. Full thickness debridement of subcutaneous tissue layer, removing all nonviable tissue and biofil m from the wound base. The patient tolerated the procedure well. 2. We are going to continue with daily Promogran dressing changes. 3. She will follow up with me in 1 week or sooner should she have problems before that time.
== END 2017-10-23 10:43 | disposition home or self-care (01) ==
LOC: WCC 10:42
PROVIDERS: ATTEND Podiatrist Foot & Ankle Surgery
DX: L89.629 Pressure ulcer of left heel, unspecified stage (principal); I73.9 Peripheral vascular disease, unspecified; Z95.820 Peripheral vascular angioplasty status with implants and grafts
CPT/HCPCS: 11042; 36416

== ENCOUNTER 2017-10-30 11:06 | Outpatient (CLI) | payer MEDICARE, MEDICAID ==
--- NOTE | 2017-10-30 12:07 | PRG ---
DATE OF SERVICE: 10/30/2017 SUBJECTIVE: This 87-year-old female returns today for a followup left heel pressure ulceration, has been doing well since she had her revascularization procedure. Denies any acute events over this las t week, has been using Promogran, gauze, Uhey wrap to the foot on a daily basis. PHYSICAL EXAMINATION: Ulceration to the posterior aspect of the left heel, measuring 1.5 cm x 1.7 cm x 0.4 cm of depth. There is undermining in the 5-7 o'clock range of about 0.4 cm. Wound base has 8 0% granulation tissue, 20% slough, minimal serosanguineous drainage from the wound. No periwound ellen thema, edema, or warmth. ASSESSMENT: Pressure ulceration, stage 3, to the left posterior heel. PLAN: 1. Full thickness debridement of subcutaneous tissue layer removing all nonviable tissue and biofilm from the wound base as well as the undermining tissue on the inferior aspect of the wound, using tis rashad nippers and dermal curette down to the bleeding granular wound base. The patient tolerated the p rocedure well. 2. Continue with Promogran dressing changes, gauze, Kerlix, and Huey wrap on a daily basis and tammie t will follow up with me in 1 week.
== END 2017-10-30 11:07 | disposition home or self-care (01) ==
LOC: WCC 11:06
PROVIDERS: ATTEND Podiatrist Foot & Ankle Surgery
DX: L89.623 Pressure ulcer of left heel, stage 3 (principal)

== ENCOUNTER 2017-11-06 11:09 | Outpatient (CLI) | payer MEDICARE, MEDICAID ==
--- NOTE | 2017-11-06 12:06 | PRG ---
DATE OF SERVICE: 11/06/2017 SUBJECTIVE: This is an 87-year-old female returns today for followup left heel pressure ulceration. She has had no acute events since last appointment, has been continued to use Promogran dressings on a daily basis. Denies nausea, vomiting, fevers or chills. PHYSICAL EXAMINATION: Pressure ulcer to the left posterior heel measuring 1.7 cm x 1.4 cm x 0.5 cm. It is 80% granulation tissue, 20% slough. No periwound erythema, edema or warmth. ASSESSMENT: Pressure ulceration to the left posterior heel. PLAN: 1. Full thickness debridement of the subcutaneous tissue layer removing all nonviable tissue and bio film from the wound base down to a bleeding granular wound base. The patient tolerated the procedure well. 2. Going to continue with offloading boots any time the patient is in bed or in a position where the heel would be resting on a surface. 3. Had indicated some instances of pain, asking about use of extra strength Tylenol. I explained th at she should not be taking any more than 3000 mg per day. 4. The patient will follow up with me in 1 week.
== END 2017-11-06 11:10 | disposition home or self-care (01) ==
LOC: WCC 11:09
PROVIDERS: ATTEND Podiatrist Foot & Ankle Surgery
DX: L89.629 Pressure ulcer of left heel, unspecified stage (principal)
CPT/HCPCS: 36416

== ENCOUNTER 2017-11-13 11:11 | Outpatient (CLI) | payer MEDICARE, MEDICAID ==
--- NOTE | 2017-11-13 12:02 | PRG ---
DATE OF SERVICE: 11/13/2017 SUBJECTIVE: This 87-year-old female returns today for followup of left heel pressure ulceration, has had no acute events since last visit, and has continued to do daily Promogran dressing changes, and is floating the heel at all times. Denies nausea, vomiting, fevers, or chills. PHYSICAL EXAMINATION: Ulceration of the left posterior heel, measuring 1.8 cm x 2.3 cm x 1.2 cm of d epth. It is 50% slough, 50% granulation tissue, minimal serosanguineous drainage, no periwound eryth howard, edema, or warmth. Wound does not probe to bone. ASSESSMENT: 1. Pressure ulceration to the left posterior heel. 2. Peripheral vascular disease. PLAN: 1. Full-thickness debridement of subcutaneous tissue, removing all nonviable tissue and biofilm from the wound base. It was noted on debridement that there was very minimal blood produced. I suspect that she is still having some decreased circulation to this leg even post-revascularization procedure , which is probably slowing her progression. 2. Going to continue with Promogran dressing changes and weekly debridements. We will follow up wit h the patient in 1 week.
== END 2017-11-13 11:12 | disposition home or self-care (01) ==
LOC: WCC 11:11
PROVIDERS: ATTEND Podiatrist Foot & Ankle Surgery
DX: L89.629 Pressure ulcer of left heel, unspecified stage (principal); I73.9 Peripheral vascular disease, unspecified
CPT/HCPCS: 11042; 36416

== ENCOUNTER 2017-11-20 10:43 | Outpatient (CLI) | payer MEDICARE, MEDICAID ==
--- NOTE | 2017-11-20 11:52 | PRG ---
DATE OF SERVICE: 11/20/2017 SUBJECTIVE: An 87-year-old female who returns today for followup pressure ulceration to the left kassie l. Has continued to use Promogran dressing changes daily, is using offloading boot when in bed. Den ies problems since last visit. Denies nausea, vomiting, fevers or chills. PHYSICAL EXAMINATION: Ulcer to the posterior left heel, measures 1.9 cm x 2.0 cm x 0.2 cm of depth. There is 100% granular tissue. There is no drainage, no periwound erythema, edema or warmth. ASSESSMENT: Pressure ulceration, left posterior heel. PLAN: 1. Full thickness debridement of subcutaneous tissue layer, removing all nonviable tissue and biofil m from the wound base. The patient tolerated the procedure well. 2. Going to continue with daily Promogran dressing changes over the next week. 3. Going to run insurance verification to determine if we can get her a skin substitute EpiFix or I would prefer the EpiCord. I think that would do well for her. 4. Continue to use the Podus boot for offloading purposes. 5. Follow up in 1 week.
[2017-11-20] MEDS ORDERED: Sodium Chloride 0.9% 15 ML NEB ONE (20:04)
== END 2017-11-20 10:44 | disposition home or self-care (01) ==
LOC: WCC 10:43
PROVIDERS: ATTEND Podiatrist Foot & Ankle Surgery
DX: L89.629 Pressure ulcer of left heel, unspecified stage (principal)
CPT/HCPCS: 11042; 36416; A4218

== ENCOUNTER 2017-11-27 10:34 | Outpatient (CLI) | payer MEDICARE, MEDICAID ==
--- NOTE | 2017-11-27 11:18 | PRG ---
DATE OF SERVICE: 11/27/2017 SUBJECTIVE: An 87-year-old female returns today for left pressure ulceration to the left heel. She has done well over the last week with daily Promogran dressing changes. She has noted that her blood sugars have been a little bit high because she has been eating some sweets. Blood sugar today was 1 88. PHYSICAL EXAMINATION: Pressure ulceration to left posterior heel measuring 1.6 cm x 2.2 cm x 0.5 cm, 75% granulation tissue, 20% slough. There is a hyperkeratotic rim to the wound. No periwound eryth howard, edema or warmth. It does not probe to bone. Minimal serosanguineous drainage, no malodor. ASSESSMENT: Pressure ulceration to the left posterior heel, stage 3. PLAN: 1. Full thickness debridement of subcutaneous tissue layer removing all nonviable tissue and biofilm from the wound base with dermal curet and hyperkeratosis was removed from the periwound area with 15 blade scalpel down to a bleeding granular wound base. The patient tolerated the procedure well. 2. Continue with Promogran dressing changes. 3. I was unable to get approvals to order to [employer] through the hospital. We now going to attempt to get the EpiFix for her for application at the next visit to improve the speed of the healing. 4. She will follow up with me in 3 weeks.
== END 2017-11-27 10:35 | disposition home or self-care (01) ==
LOC: WCC 10:34
PROVIDERS: ATTEND Podiatrist Foot & Ankle Surgery
DX: L89.623 Pressure ulcer of left heel, stage 3 (principal)
CPT/HCPCS: 36416

== ENCOUNTER 2017-12-18 10:43 | Outpatient (CLI) | payer MEDICARE, MEDICAID ==
--- NOTE | 2017-12-18 11:26 | PRG ---
DATE OF SERVICE: 12/18/2017 SUBJECTIVE: An 87-year-old female returns today for followup left heel pressure ulceration. She has been doing well with dressing changes with Promogran on a daily basis. No acute events since last v isit. Denies nausea, vomiting, fevers or chills. PHYSICAL EXAMINATION: Ulceration remains to the left posterior heel measuring 1 cm x 1.4 cm x 0.3 cm of depth. It has 100% granular tissue. There is some periwound hyperkeratotic buildup. No periwou nd erythema, edema or warmth. ASSESSMENT: Pressure ulceration to the left heel. PLAN: Full thickness debridement of subcutaneous tissue was performed removing all nonviable tissue and biofilm from the wound base with a dermal curet down to a bleeding granular wound base and applic ation of EpiFix skin substitute was then applied utilizing standard technique. This was a 2 cm x 2 c m skin graft. No waste of materials. The lot was [id number], expiration date 07/31/2022, ord er# [id number]. This was covered with Adaptic nonadherent dressing and secured with Steri-Strips. A se condary dressing of gauze, Kerlix, and Coban wrap dressing will be left in place for 1 week. We will relay this information to the home health company. She will follow up with me in 1 week for reevalu ation and possible reapplication of skin substitute if deemed necessary.
== END 2017-12-18 10:44 | disposition home or self-care (01) ==
LOC: WCC 10:43
PROVIDERS: ATTEND Podiatrist Foot & Ankle Surgery
DX: L89.629 Pressure ulcer of left heel, unspecified stage (principal)
CPT/HCPCS: 82962; Q4131; 36416

== ENCOUNTER 2017-12-25 08:50 | Outpatient (CLI) | payer MEDICARE, MEDICAID ==
--- NOTE | 2017-12-25 09:22 | PRG ---
DATE OF SERVICE: 12/25/2017 SUBJECTIVE: An 87-year-old female who presents today for followup left heel pressure ulceration. Sh ro had first EpiFix application last week, has done well over the last week with leaving the dressing in place, no acute events. Denies nausea, vomiting, fevers or chills. PHYSICAL EXAMINATION: Ulceration to the left posterior heel measuring 1 cm x 1.3 cm x 0.1 cm, 100% g ranular tissue in the wound base. Minimal serosanguineous drainage, no malodor, no periwound erythem a, edema or warmth. ASSESSMENT: Pressure ulceration to the left heel. Continue to see improvement. PLAN: 1. After full thickness debridement of subcutaneous tissue layer removing all nonviable tissue and b iofilm from the wound base down to a bleeding granular wound base. A second application of EpiFix 2 x 2 cm was applied, 4 square cm used, no waste. Lot #[id number], order # [id number], expiration date 08/30/2022. 2. Secondary dressing was applied which to be left in place for the full week. 3. The patient will follow up with me in 1 week.
[2017-12-26] MEDS ORDERED: Sodium Chloride 0.9% 15 ML NEB ONE (08:43)
== END 2017-12-25 08:51 | disposition home or self-care (01) ==
LOC: WCC 08:50
PROVIDERS: ATTEND Podiatrist Foot & Ankle Surgery
DX: L89.629 Pressure ulcer of left heel, unspecified stage (principal)
CPT/HCPCS: 36416

== ENCOUNTER 2018-01-01 07:59 | Outpatient (CLI) | payer MEDICARE, MEDICAID ==
--- NOTE | 2018-01-01 09:46 | PRG ---
DATE OF SERVICE: 01/01/2018 SUBJECTIVE: An 87-year-old female returns today for followup left heel pressure ulceration. She has been doing well with EpiFix skin substitute applications. She has left dressing in place over the l ast week. No acute events. PHYSICAL EXAMINATION: Ulceration remains on the posterior left heel measuring 0.7 cm x 0.8 cm x 0.3 cm of depth, 100% granulation tissue. No periwound erythema, edema or warmth. ASSESSMENT: Pressure ulceration to the left posterior heel continues to improve. PLAN: 1. After full thickness debridement of subcutaneous tissue layer removing all nonviable tissue and b iofilm a third application of EpiFix was applied, 4 square cm of application. EpiFix lot #[id number]. Order #[id number], expires 08/30/2022. This was also documented in the tissue log. 2. Bandages were applied including Xeroform, Steri-Strips, gauze, roll gauze and Coban. This will b e left in place for 1 week. The patient will follow up with me in 1 week.
[2018-01-01] MEDS ORDERED: Sodium Chloride 0.9% 15 ML NEB ONE (15:53)
== END 2018-01-01 08:00 | disposition home or self-care (01) ==
LOC: WCC 07:59
PROVIDERS: ATTEND Podiatrist Foot & Ankle Surgery
DX: L89.629 Pressure ulcer of left heel, unspecified stage (principal)
CPT/HCPCS: 15275; 82962; 97139; Q4131; 36416; A4218

== ENCOUNTER 2018-01-08 08:43 | Outpatient (CLI) | payer MEDICARE, MEDICAID ==
--- NOTE | 2018-01-08 12:53 | PRG ---
DATE OF SERVICE: 01/08/2018 SUBJECTIVE: An 87-year-old female returns today for followup of left heel pressure ulceration, has b een getting skin substitute applications. No problems with leaving the dressing on for the week. De nies nausea, vomiting, fevers, or chills. PHYSICAL EXAMINATION: Ulceration to the left heel measuring cm of depth, 100% granulation tiss ue, some slight undermining, which was debrided today. No periwound erythema, edema, or warmth. ASSESSMENT: Pressure ulceration to the left heel. PLAN: Full thickness debridement of subcutaneous tissue layers was performed and application of EpiF ix 18 mm disk lot number [id number], order number [id number], expiration date 03/02/2022, applied utilizing the standard technique and covered with Adaptic, 4 x 4s, Kerlix, and Coban. This will be l eft in place for the week. She will follow up with me in 1 week.
[2018-01-08] MEDS ORDERED: Sodium Chloride 0.9% 15 ML NEB ONE (15:41)
== END 2018-01-08 08:44 | disposition home or self-care (01) ==
LOC: WCC 08:43
PROVIDERS: ATTEND Podiatrist Foot & Ankle Surgery
DX: L89.629 Pressure ulcer of left heel, unspecified stage (principal)
CPT/HCPCS: 36416; A4218; C9363-KX-JC

== ENCOUNTER 2018-01-15 07:58 | Outpatient (CLI) | payer MEDICARE, MEDICAID ==
--- NOTE | 2018-01-15 10:02 | PRG ---
DATE OF SERVICE: 01/15/2018 SUBJECTIVE: An 87-year-old female returns for left heel pressure ulceration, has been getting EpiFix applications. No acute events since last visit. Denies nausea, vomiting, fevers or chills. PHYSICAL EXAMINATION: Pressure ulceration remains to the left heel, has improved in size measuring 0 .7 cm x 0.8 cm x 0.2 cm, 100% granulation tissue, minimal serosanguineous drainage, no periwound eryt juan a, edema or warmth. ASSESSMENT: Pressure ulceration to the left heel. PLAN: Full thickness debridement of the wound down to the subcutaneous tissue layer removing all non viable tissue and biofilm from the wound base down to bleeding granular wound base. Today, we applie d the EpiFix utilizing standard technique 18 mm disk order number [id number], lot number [id number], expiration date 03/02/2022. EpiFix was covered with Adaptic and Steri-Strips and secondary gauze and Coban dressing. This dressing will be left in place for 1 week. We are going to be out next we k, so we will not be able to reapply. We will have the home health start every other day collagen an d gauze dressing changes starting next Thursday for the following week and I will see her in 2 weeks.
[2018-01-15] MEDS ORDERED: Sodium Chloride 0.9% 15 ML NEB ONE (18:33)
== END 2018-01-15 07:59 | disposition home or self-care (01) ==
LOC: WCC 07:58
PROVIDERS: ATTEND Podiatrist Foot & Ankle Surgery
DX: L89.629 Pressure ulcer of left heel, unspecified stage (principal)
CPT/HCPCS: 15275; 82962; 97139; C9363; 36416; A4218

== ENCOUNTER 2018-01-29 09:39 | Outpatient (CLI) | payer MEDICARE, MEDICAID ==
--- NOTE | 2018-01-29 23:48 | PRG ---
DATE OF SERVICE: 01/29/2018 WOUND CLINIC NOTE SUBJECTIVE: An 87-year-old female returns today for left heel pressure ulceration. The patient states she has had no problems over the last 2 weeks. She has kept her skin substitute dressing in place during that period of time. Denies nausea, vomiting, fevers, or chills. OBJECTIVE: Pressure ulceration to the left heel measuring 0.7 cm x 1 cm x 0.2 cm. It has 100% granular wound base with some biofilm on the wound base There is very slight 1 mm undermining surrounding the entirety of the wound. ASSESSMENT: Pressure ulceration to the left heel. PLAN: After full-thickness debridement of the subcutaneous tissue layer, an application of EpiFix 18 mm disc skin substitute was applied to the left heel and covered with Adaptic and secured with Steri-Strips. Secondary gauze, Kerlix and Coban dressing applied, this would be left in place until followup. Order number, lot number and expiration date are documented within the tissue log. Job ID: [id number] MTDD
== END 2018-01-29 09:40 | disposition home or self-care (01) ==
LOC: WCC 09:39
PROVIDERS: ATTEND Podiatrist Foot & Ankle Surgery
DX: L89.629 Pressure ulcer of left heel, unspecified stage (principal)
CPT/HCPCS: 82962; C9363; 36416

== ENCOUNTER 2018-02-12 08:33 | Outpatient (CLI) | payer MEDICARE, MEDICAID ==
[2018-02-12] MEDS ORDERED: Sodium Chloride 0.9% 15 ML NEB ONE (09:00)
--- NOTE | 2018-02-12 14:56 | PRG ---
DATE OF SERVICE: 02/12/2018 WOUND CLINIC NOTE SUBJECTIVE: Ms. Napier returns for followup on her left heel pressure ulceration, has left dressing in place for the last couple of weeks. No problem since that time. Denies nausea, vomiting, fevers, or chills. Thinks the wound is looking very good. OBJECTIVE: There is a small scabbed area on the posterior heel measuring 0.7 cm x 1.5 cm. On removal of the scab and debridement of the underlying tissue, there is still full-thickness ulceration, which is larger is size measuring 2 cm x 1.6 cm x 1.1 cm in depth. It does have a 100% granular wound base. No periwound erythema, edema, or warmth. ASSESSMENT: Pressure ulceration to the left heel. PLAN: Full-thickness debridement of the wound was performed removing all non-viable tissue and biofilm from the wound base down to bleeding granular wound base. We then applied an EpiFix skin substitute measuring 2 cm x 2 cm. The entirety of the skin substitute graft was used, total of 4 cm2, lot #[id number], order #[id number], expiry 08/30/2022. This was documented in the tissue log. Bandages applied including Adaptic, Steri-Strips, 4x4 roll gauze and NIKOLE bandage. The patient will follow up in one week. This dressing need to be left in place the entire time. Job ID: [id number]
== END 2018-02-12 08:34 | disposition home or self-care (01) ==
LOC: WCC 08:33
PROVIDERS: ATTEND Podiatrist Foot & Ankle Surgery
DX: L89.629 Pressure ulcer of left heel, unspecified stage (principal)
CPT/HCPCS: 36416; A4218; Q4131

== ENCOUNTER 2018-02-19 10:37 | Outpatient (CLI) | payer MEDICARE, MEDICAID ==
[2018-02-19] MEDS ORDERED: Sodium Chloride 0.9% 15 ML NEB ONE (14:05)
--- NOTE | 2018-02-19 17:32 | PRG ---
DATE OF SERVICE: 02/19/2018 SUBJECTIVE: An 87-year-old female returns today for followup of left heel pressure ulceration, has done well over the last week. Kept EpiFix dressing in place. No acute events. OBJECTIVE: Wound looks much improved and measures 1.1 cm x 1.3 cm x 0.2 cm of depth, 80% slough, 20% granulation tissue. No periwound erythema, edema, or warmth. ASSESSMENT: Pressure ulceration to the left heel. PLAN: Full-thickness debridement of the subcutaneous tissue layer removing all nonviable tissue both from down to bleeding granular wound base and an EpiFix skin substitute 18 mm disk was then applied, lot #[id number], order number [id number], expiration 09/30/2022. This is application #8. The patient will leave this dressing in place until her followup in 1 week. Job ID: [id number]
== END 2018-02-19 10:38 | disposition home or self-care (01) ==
LOC: WCC 10:37
PROVIDERS: ATTEND Podiatrist Foot & Ankle Surgery
DX: L89.629 Pressure ulcer of left heel, unspecified stage (principal)
CPT/HCPCS: 82962; C9363; 36416; A4218

== ENCOUNTER 2018-02-26 08:23 | Outpatient (CLI) | payer MEDICARE, MEDICAID ==
[2018-02-26] MEDS ORDERED: Sodium Chloride 0.9% 15 ML NEB ONE (09:00)
--- NOTE | 2018-02-26 12:32 | PRG ---
DATE OF SERVICE: 02/26/2018 WOUND CLINIC NOTE SUBJECTIVE: An 87-year-old female returns for left heel pressure ulceration. Has done well over the last week. Has not received her new Podus boots yet and so she has not been wearing them while sleeping. No acute events since last visit. No problems with the dressing being left in place for the week. PHYSICAL EXAMINATION: Ulceration remains on the posterior left heel. Post debridement measurements are 1 cm x 0.6 cm x 0.3 cm in depth, 100% granular wound base does not probe to tendon or bone. No periwound erythema, edema, or warmth. ASSESSMENT: Pressure ulceration to the left heel. PLAN: 1. After full-thickness debridement of the subcutaneous tissue layer removing all nonviable tissue and biofilm from the wound base down to bleeding granular wound base, a 9th application of EpiFix 18 mm disc was applied utilizing standard technique, lot #[id number], order #[id number], expiration date 09/30/2022. 2. Secondary dressing of Adaptic, roll gauze and Coban was applied to be left in place for one week. She will follow up with me in one week. Job ID: [id number]
== END 2018-02-26 08:24 | disposition home or self-care (01) ==
LOC: WCC 08:23
PROVIDERS: ATTEND Podiatrist Foot & Ankle Surgery
DX: L89.629 Pressure ulcer of left heel, unspecified stage (principal)
CPT/HCPCS: 15275; 36416; A4218; C9363-KX-JC

== ENCOUNTER 2018-03-12 08:27 | Outpatient (CLI) | payer MEDICARE, MEDICAID ==
--- NOTE | 2018-03-12 16:22 | PRG ---
DATE OF SERVICE: 03/12/2018 WOUND CLINIC NOTE SUBJECTIVE: An 87-year-old female returns today for left heel pressure ulceration, has been doing well with skin substitute applications. Denies acute events since last visit. She missed her appointment last week and so the dressing has been left in place for two weeks. Denies nausea, vomiting, fevers or chills. OBJECTIVE: Ulcer to the left heel measuring 0.7 cm x 1 cm x 0.5 cm in depth, 50% slough, 50% granulation tissue, 100% granulation tissue post debridement. No periwound erythema, edema, or warmth. Wound does not probe to tendon or bone. ASSESSMENT: Pressure ulceration to the left heel. PLAN: 1. After full-thickness debridement of subcutaneous tissue layer removing all nonviable tissue and biofilm down to bleeding granular wound base was performed, application of 18 mm disk of EpiFix skin substitute was applied. Skin substitute lot #[id number], expiration 09/30/2022. Order #[id number]. This is documented in the tissue log as well. 2. Dressing was applied including Adaptic, Steri-Strips, and gauze. This will be left in place for one week. The patient will follow up with me in one week. Job ID: [id number]
== END 2018-03-12 08:28 | disposition home or self-care (01) ==
LOC: WCC 08:27
PROVIDERS: ATTEND Podiatrist Foot & Ankle Surgery
DX: L89.629 Pressure ulcer of left heel, unspecified stage (principal)
CPT/HCPCS: 36416; C9363-KX-JC

== ENCOUNTER 2018-03-19 08:54 | Outpatient (CLI) | payer MEDICARE, MEDICAID ==
--- NOTE | 2018-03-19 10:14 | PRG ---
DATE OF SERVICE: 03/19/2018 WOUND CLINIC NOTE SUBJECTIVE: An 87-year-old female returns today for left heel pressure ulceration. Denies acute events from last week. She has been able to leave the dressing in place for the entirety of the week. Daughter with her today is unsure whether or not she received her multi-podus boots for offloading. OBJECTIVE: Ulceration to the left heel. Post debridement measurements 0.8 cm x 0.5 cm x 0.5 cm. 100% granular wound base, post debridement. No periwound erythema, edema, or warmth. ASSESSMENT: Pressure ulceration to the left heel. PLAN: Full-thickness debridement of the wound was performed. Another application of an 18-mm disc of EpiFix was applied, lot #[id number], expiration 09/30/2022. This was held in place with Adaptic and Steri-Strips and will be left in place for a week and she will follow up with me in 1 week. Job ID: [id number]
[2018-03-19] MEDS ORDERED: Sodium Chloride 0.9% 15 ML NEB ONE (16:00)
== END 2018-03-19 08:55 | disposition home or self-care (01) ==
LOC: WCC 08:54
PROVIDERS: ATTEND Podiatrist Foot & Ankle Surgery
DX: L89.629 Pressure ulcer of left heel, unspecified stage (principal)
CPT/HCPCS: 36416; A4218; C9363-KX-JC

== ENCOUNTER 2018-03-26 08:20 | Outpatient (CLI) | payer MEDICARE, MEDICAID ==
[2018-03-26] MEDS ORDERED: Sodium Chloride 0.9% 15 ML NEB ONE (11:11)
--- NOTE | 2018-03-26 11:30 | PRG ---
DATE OF SERVICE: 03/26/2018 WOUND CLINIC NOTE SUBJECTIVE: An 87-year-old female returns today for left heel pressure ulceration. Has kept EpiFix dressing in place for the last week. No acute events. Denies nausea, vomiting, fevers, or chills. OBJECTIVE: There is a scabbed area over the wound. On light pressure, it is noted that this was just superficial epithelial growth. There is still persistent full-thickness wound underneath, which measures 0.5 cm x 0.6 cm x 0.5 cm of depth, 100% granular wound base. No periwound erythema, edema, or warmth. ASSESSMENT: Pressure ulceration to the left heel. PLAN: 1. Full-thickness debridement of subcutaneous tissue layer removing all nonviable tissues and biofilm from the wound base down to a bleeding granular wound base. The patient tolerated the procedure well. 2. I have been informed that we have exhausted our allotment of skin substitute, so we are going to switch her back to a daily collagen dressing with secondary gauze dressing. 3. I informed the patient this is going to be my last day at [facility] and gave her the option to either transfer her care to the other wound care doctor, Dr. Iqbal or to follow up with me in my office in [facility]. Her caregiver requested that she will be switched to the other wound care doctor due to being more convenient for them, although I did give them my office phone number and asked that they do schedule her an appointment for routine foot care as she does need her nails trimmed as well as if they change their minds about following up with me for the care of the wound. Job ID: [id number]
== END 2018-03-26 08:21 | disposition home or self-care (01) ==
LOC: WCC 08:20
PROVIDERS: ATTEND Podiatrist Foot & Ankle Surgery
DX: L89.629 Pressure ulcer of left heel, unspecified stage (principal)
CPT/HCPCS: 36416; A4218

== ENCOUNTER 2018-03-31 08:40 | Outpatient (CLI) | payer MEDICARE, MEDICAID ==
--- NOTE | 2018-03-31 09:16 | PRG ---
DATE OF SERVICE: 03/31/2018 HISTORY: Ms. Natalia Napier is a very pleasant 87-year-old, accompanied by her daughter, who presents to the Wound Center for evaluation of an ulceration of the left heel. The patient has received a course of treatment with EpiFix for her left heel ulceration. The patient's medical history is significant for peripheral vascular disease. The patient's daughter states that Ms. Napier has undergone percutaneous revascularization of the right lower extremity and the left lower extremity by Dr. Estevan Leger. Since the patient's last visit to the Wound Center, Ms. Napier has received dressing changes of Promogran for the left heel wound. The patient apparently has an offloading boot, which she utilizes when she is not ambulating. PHYSICAL EXAMINATION: VITAL SIGNS: Temperature 97.9, pulse 85, and blood pressure 157/69. Accu-Chek 142. EXTREMITIES: An ulceration of the left heel is present, which measures approximately 0.7 x 0.7 cm. Granulation tissue is visible within the wound margins. No purulent drainage is associated with the wound. No erythema of the skin surrounding the wound is present. No maceration of the skin of the periwound is noted. A dorsalis pedis pulse or posterior tibial pulse is not palpable on the left. Both pulses are, however, audible by Doppler. No significant edema of the left foot is present on exam today. ASSESSMENT AND PLAN: 1. Ulceration of left heel. As described above, the patient's medical history is significant for peripheral vascular disease. As stated above, the patient has completed a course of treatment with EpiFix. Dressing changes of Promogran will be continued. These dressing changes are to be performed 3 times per week after cleansing and irrigation with the assistance of Home Health. No antibiotics will be prescribed today based upon the appearance of the wound. I will see Ms. Napier again in 2 weeks. 2. Peripheral vascular disease. 3. Paroxysmal atrial fibrillation. 4. Hypertension. 5. Dementia. Job ID: [id number]
== END 2018-03-31 08:41 | disposition home or self-care (01) ==
LOC: WCC 08:40
PROVIDERS: ATTEND Family Medicine
DX: L97.429 Non-pressure chronic ulcer of left heel and midfoot with unspecified severity (principal); I73.9 Peripheral vascular disease, unspecified; I48.0 Paroxysmal atrial fibrillation; I10 Essential (primary) hypertension; F03.90 Unspecified dementia, unspecified severity, without behavioral disturbance, psychotic disturbance, mood disturbance, and anxiety
CPT/HCPCS: 36416

== ENCOUNTER 2018-04-14 08:24 | Outpatient (CLI) | payer MEDICARE, MEDICAID ==
--- NOTE | 2018-04-14 08:58 | PRG ---
DATE OF SERVICE: 04/14/2018 HISTORY: Ms. Natalia Napier is a very pleasant 87-year-old accompanied by her daughter, who presents to the Wound Center for evaluation of an ulceration of the left heel. The patient has received a course of treatment with EpiFix for her left heel ulceration. The patient's medical history significant for peripheral vascular disease. The patient's daughter previously stated that Ms. Napier has undergone percutaneous revascularization of the right lower extremity and the left lower extremity by Dr. Estevan Leger. Since the patient's last visit to the Wound Center, Ms. Napier has been receiving dressing changes of Promogran three times per week after cleansing and irrigation with the assistance of Home Health. PHYSICAL EXAMINATION: VITAL SIGNS: Temperature 97.8, pulse 96, respirations 16, blood pressure 120/58. Accu-Chek 157. EXTREMITIES: The ulceration of the left heel measures approximately 0.7 x 0.7 cm and is covered in its entirety by dry stable eschar. No purulent drainage is associated with the wound. No erythema of the skin surrounding the wound is present. No maceration of the skin of the periwound is noted. No significant edema of the left foot is present on exam today. ASSESSMENT AND PLAN: 1. Ulceration of left heel. As described above, the patient's medical history significant for peripheral vascular disease. Also as stated above, the patient has completed a course of treatment with EpiFix. Dressing changes of Mepilex border will be performed 3 times per week after cleansing and irrigation with the assistance of Home Health for one more week. Ms. Napier will be discharged from clinic today with followup on a p.r.n. basis. 2. Peripheral vascular disease. 3. Paroxysmal atrial fibrillation. 4. Hypertension. 5. Dementia. Job ID: [id number]
[2018-04-14] MEDS ORDERED: Sodium Chloride 0.9% 15 ML NEB ONE (15:48)
== END 2018-04-14 08:25 | disposition home or self-care (01) ==
LOC: WCC 08:24
PROVIDERS: ATTEND Family Medicine
DX: L97.429 Non-pressure chronic ulcer of left heel and midfoot with unspecified severity (principal); I48.0 Paroxysmal atrial fibrillation; I73.9 Peripheral vascular disease, unspecified; I10 Essential (primary) hypertension; F03.90 Unspecified dementia, unspecified severity, without behavioral disturbance, psychotic disturbance, mood disturbance, and anxiety
CPT/HCPCS: 36416; 97602

== ENCOUNTER 2018-06-03 16:07 | Outpatient (CLI) | payer MEDICARE, MEDICAID ==
--- NOTE | 2018-06-03 14:27 | PRG ---
DATE OF SERVICE: 06/03/2018 HISTORY OF PRESENT ILLNESS: Ms. Natalia Napier is a very pleasant 87-year-old accompanied by her daughter, who presents to the Wound Center for evaluation of an ulceration of the left heel. The patient has received a course of treatment with EpiFix for her left heel ulceration. The patient's medical history is significant for peripheral vascular disease. The patient's daughter previously stated that Ms. Napier had undergone percutaneous revascularization of the right lower extremity and the left lower extremity by Dr. Estevan Leger. The ulceration which was noted at the time of the patient's last visit to be covered in its entirety. A dry stable eschar began to be associated with pain and the patient's daughter arranged for a followup visit for Ms. Napier in the Wound Center. The patient continues to receive visits by Home Health. PHYSICAL EXAMINATION: VITAL SIGNS: Temperature 98.1, pulse 92, respirations 15, and blood pressure 141/65. EXTREMITIES: The ulceration of the left heel measures approximately 0.8 x 0.4 cm. Granulation tissue is present within the wound margins. Necrotic and nonviable tissue present within the wound margins were debrided with an excisional full-thickness debridement with the use of a curette. Callus, undermining and desiccated tissue at the periphery of the wound were eliminated with the use of scissors. No purulent drainage is associated with the wound. No erythema of the skin surrounding the wound is present. No maceration of the skin of the periwound is noted. No significant edema of the left foot is present on exam today. ASSESSMENT AND PLAN: 1. Ulceration of left heel. As stated above, the patient's medical history is significant for peripheral vascular disease. Also as stated above, the patient has completed a course of treatment with EpiFix. Dressing changes of Medihoney and Mepilex border will be initiated today. These dressing changes are to be performed 3 times per week after cleansing and irrigation with the assistance of Home Health. I will see Ms. Napier again in 2 weeks. 2. Peripheral vascular disease. 3. Paroxysmal atrial fibrillation. 4. Hypertension. 5. Dementia. Job ID: [id number]
[2018-06-03] MEDS ORDERED: Lidocaine 2% 11 ML SYR ONE (18:00)
[2018-06-03] MEDS ORDERED: Sodium Chloride 0.9% 15 ML NEB ONE (18:00)
== END 2018-06-03 16:08 | disposition home or self-care (01) ==
LOC: WCC 16:07
PROVIDERS: ATTEND Family Medicine
DX: L97.429 Non-pressure chronic ulcer of left heel and midfoot with unspecified severity (principal); I48.0 Paroxysmal atrial fibrillation; I10 Essential (primary) hypertension; F03.90 Unspecified dementia, unspecified severity, without behavioral disturbance, psychotic disturbance, mood disturbance, and anxiety; I73.9 Peripheral vascular disease, unspecified
CPT/HCPCS: A4218; C1721

== ENCOUNTER 2018-06-17 15:45 | Outpatient (CLI) | payer MEDICARE, MEDICAID ==
--- NOTE | 2018-06-17 14:18 | PRG ---
DATE OF SERVICE: 06/17/2018 HISTORY: Ms. Natalia Napier is a very pleasant 87-year-old, accompanied by her daughter, who presents to the wound center for evaluation of an ulceration of the left heel. The patient has received a course of treatment with EpiFix for her left heel ulceration. The patient's medical history significant for peripheral vascular disease. The patient's daughter previously stated that Ms. Napier had undergone percutaneous revascularization of the right lower extremity and the left lower extremity by Dr. Estevan Leger. Since the patient's last visit, Ms. Napier has been receiving dressing changes of Medihoney and Mepilex border 3 times per week after cleansing and irrigation with the assistance of Home Health. PHYSICAL EXAMINATION: VITAL SIGNS: Temperature 98.0, pulse 83, respirations 16, and blood pressure 157/70. Accu-Chek 108. EXTREMITIES: The ulceration of the left heel measures approximately 0.6 x 0.7 cm. The dimensions of the wound at the time of the patient's last visit were approximately 0.8 x 0.4 cm. Granulation tissue is present within the wound margins. Necrotic and nonviable tissue present within the wound margins was debrided with an excisional full-thickness debridement with the use of a curette. No purulent drainage is associated with the wound. No erythema of the skin surrounding the wound is present. No maceration of the skin of the periwound is noted. No significant edema of the left foot is present on exam today. ASSESSMENT AND PLAN: 1. Ulceration of left heel. As stated above, the patient's medical history significant for peripheral vascular disease. Also as stated above the patient has completed a course of treatment with EpiFix. Dressing changes of Medihoney and Mepilex border will be continued 3 times per week after cleansing and irrigation with the assistance of Home Health. I will see Ms. Napier again in 2 weeks. The patient's daughter has been given a prescription for a Heelift boot for Ms. Napier to utilize at all times. Plain films of the left foot will also be obtained to look for findings suggestive of osteomyelitis in the region of the ulceration. The patient and her daughter understand and are in agreement with the preceding treatment plan. 2. Peripheral vascular disease. 3. Paroxysmal atrial fibrillation. 4. Hypertension. 5. Dementia. Job ID: [id number]
[2018-06-17] MEDS ORDERED: Sodium Chloride 0.9% 15 ML NEB ONE (17:23)
[2018-06-17] MEDS ORDERED: Lidocaine 2% 11 ML SYR ONE (17:23)
== END 2018-06-17 15:46 | disposition home or self-care (01) ==
LOC: WCC 15:45
PROVIDERS: ATTEND Family Medicine
DX: L97.429 Non-pressure chronic ulcer of left heel and midfoot with unspecified severity (principal); I48.0 Paroxysmal atrial fibrillation; I73.9 Peripheral vascular disease, unspecified; I10 Essential (primary) hypertension; F03.90 Unspecified dementia, unspecified severity, without behavioral disturbance, psychotic disturbance, mood disturbance, and anxiety
CPT/HCPCS: 36416; 97602; A4218

== ENCOUNTER 2018-07-01 10:05 | Outpatient (CLI) | payer MEDICARE, MEDICAID ==
--- NOTE | 2018-07-01 11:21 | PRG ---
DATE OF SERVICE: 07/01/2018 HISTORY: Ms. Natalia Napier is a very pleasant 88-year-old, accompanied by her daughter, who presents to the Wound Center for evaluation of an ulceration of the left heel. The patient has received a course of treatment with EpiFix for her left heel ulceration. The patient's medical history is significant for peripheral vascular disease. The patient's daughter previously stated that Ms. Napier had undergone percutaneous revascularization of the right lower extremity and the left lower extremity by Dr. Estevan Leger. Since the patient's last visit, Ms. Napier has been receiving dressing changes of Medihoney and Mepilex border 3 times per week after cleansing and irrigation with the assistance of Home Health. The patient's daughter states that she is still in the process of obtaining a Heelift boot for Ms. Napier. PHYSICAL EXAMINATION: VITAL SIGNS: Temperature 98.1, pulse 97, respirations 20, blood pressure 144/66, and Accu-Chek 174. EXTREMITIES: The ulceration of the left heel measures approximately 0.6 x 1.0 cm. The dimensions of the wound at the time of the patient's last visit were approximately 0.6 x 0.7 cm. Granulation tissue is present within the wound margins. Necrotic and nonviable tissue present within the wound margins was debrided with an excisional full-thickness debridement with the use of a curette. No purulent drainage is associated with the wound. No erythema of the skin surrounding the wound is present. Maceration of the skin of the periwound is noted. No significant edema of the left foot is present on exam today. ASSESSMENT AND PLAN: 1. Ulceration of left heel. As stated above, the patient's medical history is significant for peripheral vascular disease. Also, as stated above, the patient has completed a course of treatment with EpiFix. Dressing changes of Medihoney and Mepilex border will be continued 3 times per week after cleansing and irrigation with the assistance of Home Health. I will see Ms. Napier again 2 weeks after the patient has began utilizing a Heelift boot. Plain films of the left foot obtained at the time of the patient's last visit showed no definite radiographic evidence of osteomyelitis. 2. Peripheral vascular disease. 3. Paroxysmal atrial fibrillation. 4. Hypertension. 5. Dementia. Job ID: [id number]
[2018-07-01] MEDS ORDERED: Sodium Chloride 0.9% 15 ML NEB ONE (16:17)
== END 2018-07-01 10:06 | disposition home or self-care (01) ==
LOC: WCC 10:05
PROVIDERS: ATTEND Family Medicine
DX: L97.429 Non-pressure chronic ulcer of left heel and midfoot with unspecified severity (principal); I73.9 Peripheral vascular disease, unspecified; I48.0 Paroxysmal atrial fibrillation; I10 Essential (primary) hypertension; F03.90 Unspecified dementia, unspecified severity, without behavioral disturbance, psychotic disturbance, mood disturbance, and anxiety
CPT/HCPCS: 11042; 36416; A4218

== ENCOUNTER 2018-07-15 14:35 | Outpatient (CLI) | payer MEDICARE, MEDICAID ==
--- NOTE | 2018-07-15 14:19 | PRG ---
DATE OF SERVICE: 07/15/2018 HISTORY: Ms. Natalia Napier is a very pleasant 88-year-old, accompanied by her daughter, who presents to the Wound Center for evaluation of an ulceration of the left heel. The patient has received a course of treatment with EpiFix for her left heel ulceration. The patient's medical history is significant for peripheral vascular disease. Previously, the patient's daughter stated that Ms. Napier had undergone percutaneous revascularization of the right lower extremity and the left lower extremity by Dr. Estevan Leger. Since the patient's last visit, Ms. Napier has been receiving dressing changes of Medihoney and Mepilex border three times per week after cleansing and irrigation with the assistance of Home Health. The patient's daughter states that Ms. Napier has not yet acquired a Heelift boot. PHYSICAL EXAMINATION: VITAL SIGNS: Temperature 97.6, pulse 87, respirations 16, blood pressure 140/63. Accu-Chek 117. EXTREMITIES: The ulceration of the left heel measures approximately 0.3 x 0.5 cm. The dimensions of the wound at the time of the patient's last visit were approximately 0.6 x 1.0 cm. Granulation tissue is present within the wound margins. Necrotic and nonviable tissue present within the wound margins was debrided with an excisional full-thickness debridement with the use of a curette. No purulent drainage is associated with the wound. No erythema of the skin surrounding the wound is present. No maceration of the skin of the periwound is noted. No significant edema of the left foot is present on today's exam. ASSESSMENT AND PLAN: 1. Ulceration of left heel. As stated above, the patient's medical history is significant for peripheral vascular disease. Also as stated above, the patient has completed a course of treatment with EpiFix. Dressing changes of Medihoney and Mepilex border will be continued three times per week after cleansing and irrigation with the assistance of Home Health. I will see Ms. Napier again in 2 weeks. 2. Peripheral vascular disease. 3. Paroxysmal atrial fibrillation. 4. Hypertension. 5. Dementia. Job ID: [id number]
[2018-07-15] MEDS ORDERED: Sodium Chloride 0.9% 15 ML NEB ONE (15:00)
== END 2018-07-15 14:36 | disposition home or self-care (01) ==
LOC: WCC 14:35
PROVIDERS: ATTEND Family Medicine
DX: L97.429 Non-pressure chronic ulcer of left heel and midfoot with unspecified severity (principal); I73.9 Peripheral vascular disease, unspecified; I10 Essential (primary) hypertension; F03.90 Unspecified dementia, unspecified severity, without behavioral disturbance, psychotic disturbance, mood disturbance, and anxiety; I48.0 Paroxysmal atrial fibrillation
CPT/HCPCS: 11042; 36416; A4218

== ENCOUNTER 2018-07-29 13:42 | Outpatient (CLI) | payer MEDICARE, MEDICAID ==
[~2018-07-29 13:42] MED LIST changes: +Lidocaine 2% 11 ML SYR ONE
--- NOTE | 2018-07-29 17:15 | PRG ---
DATE OF SERVICE: 07/29/2018 HISTORY: Ms. Natalia Napier is a very pleasant 88-year-old, accompanied by her daughter, who presents to the Wound Center for evaluation of an ulceration of the left heel. The patient has received a course of treatment with EpiFix for her left heel ulceration. The patient's medical history is significant for peripheral vascular disease. Previously, the patient's daughter stated that Ms. Napier had undergone percutaneous revascularization of the right lower extremity and the left lower extremity by Dr. Estevan Leger. Since the patient's last visit, Ms. Napier has been receiving dressing changes of Medihoney and Mepilex border 3 times per week after cleansing and irrigation with the assistance of Home Health. Again, the patient's daughter states that Ms. Npaier has not yet acquired a Heelift boot. PHYSICAL EXAMINATION: VITAL SIGNS: Temperature 97.8, pulse 86, respirations 17, blood pressure 139/65, Accu-Chek 97. EXTREMITIES: The ulceration of the left heel measures approximately 0.5 x 0.4 cm. The dimensions of the wound at the time of the patient's last visit were approximately 0.3 x 0.5 cm. Necrotic and nonviable tissue present within the wound margins was debrided with an excisional full-thickness debridement with the use of a curette. Callus undermining and desiccated tissue at the periphery of the wound were eliminated with the use of scissors. No purulent drainage is associated with the wound. No erythema of the skin surrounding the wound is present. No maceration of the skin of the periwound is noted. No significant edema of the left foot is present on exam today. Post-debridement measurements were approximately 0.7 x 0.4 cm. ASSESSMENT AND PLAN: 1. Ulceration of left heel. As stated above, the patient's medical history is significant for peripheral vascular disease. Also as stated above, the patient has completed a course of treatment with EpiFix. Dressing changes of Medihoney alginate and Mepilex Border are to be performed 3 times per week after cleansing and irrigation with the assistance of Home Health. I will see Ms. Napier again in 2 weeks. The patient's daughter states that efforts will continue to obtain Ms. Napier a Heelift boot. 2. Peripheral vascular disease. 3. Paroxysmal atrial fibrillation. 4. Hypertension. 5. Dementia. Job ID: [id number]
== END 2018-07-29 13:43 | disposition home or self-care (01) ==
LOC: WCC 13:42
PROVIDERS: ATTEND Family Medicine
DX: L97.429 Non-pressure chronic ulcer of left heel and midfoot with unspecified severity (principal); I73.9 Peripheral vascular disease, unspecified; I48.0 Paroxysmal atrial fibrillation; I10 Essential (primary) hypertension; F03.90 Unspecified dementia, unspecified severity, without behavioral disturbance, psychotic disturbance, mood disturbance, and anxiety
CPT/HCPCS: 11042; 36416; A4218

== ENCOUNTER 2018-08-12 15:48 | Outpatient (CLI) | payer MEDICARE, MEDICAID ==
--- NOTE | 2018-08-12 14:37 | PRG ---
DATE OF SERVICE: 08/12/2018 HISTORY: Ms. Natalia Napier is a very pleasant 88-year-old, accompanied by one of her daughters, who presents to the Wound Center for evaluation of an ulceration of the left heel. The patient has received a course of treatment with EpiFix for her left heel ulceration. The patient's medical history is significant for peripheral vascular disease. The patient's daughter previously stated that Ms. Napier had undergone percutaneous revascularization of the right lower extremity and the left lower extremity by Dr. Estevan Leger. Since the patient's last visit, Ms. Napier has been receiving dressing changes of Medihoney, alginate, and Mepilex border 3 times per week after cleansing and irrigation with the assistance of Home Health. Apparently, Ms. Napier has not yet acquired a Heelift boot. PHYSICAL EXAMINATION: VITAL SIGNS: Temperature 98.0, pulse 98, respirations 16, blood pressure 132/67. Accu-Chek 86. EXTREMITIES: The ulceration of the left heel measures approximately 0.5 x 0.6 cm. The dimensions of the wound at the time of the patient's last visit were approximately 0.5 x 0.4 cm. Granulation tissue is present within the wound margins. No purulent drainage is associated with the wound. No erythema of the skin surrounding the wound is present. No maceration of the skin of the periwound is noted. No significant edema of the left foot is present on exam today. ASSESSMENT AND PLAN: 1. Left heel ulceration. As stated above, the patient's medical history is significant for peripheral vascular disease. Also as stated above, the patient has completed a course of treatment with EpiFix. Dressing changes of Medihoney, alginate, and Mepilex border will be continued 3 times per week after cleansing and irrigation with the assistance of Home Health. I will see Ms. Napier again in 2 weeks. Efforts will continue to obtain Ms. Napier' Heelift boot. I will discuss imaging of the left heel with the daughter making decisions for Ms. Napier in regard to her medical care at the time of the patient's next clinic visit. 2. Peripheral vascular disease. 3. Paroxysmal atrial fibrillation. 4. Hypertension. 5. Dementia. Job ID: [id number]
== END 2018-08-12 15:49 | disposition home or self-care (01) ==
LOC: WCC 15:48
PROVIDERS: ATTEND Family Medicine
DX: L97.429 Non-pressure chronic ulcer of left heel and midfoot with unspecified severity (principal); I73.9 Peripheral vascular disease, unspecified; I48.0 Paroxysmal atrial fibrillation; I10 Essential (primary) hypertension; F03.90 Unspecified dementia, unspecified severity, without behavioral disturbance, psychotic disturbance, mood disturbance, and anxiety
CPT/HCPCS: 36416; 97602; A4218

== ENCOUNTER 2018-08-25 13:48 | Outpatient (CLI) | payer MEDICARE, MEDICAID ==
[~2018-08-25 13:48] MED LIST changes: -Lidocaine 2% 11 ML SYR ONE
--- NOTE | 2018-08-25 14:23 | PRG ---
DATE OF SERVICE: 08/25/2018 HISTORY: Ms. Natalia Napier is a very pleasant 88-year-old, accompanied by one of her daughters, who presents to the Wound Center for evaluation of an ulceration of the left heel. The patient has received a course of treatment with EpiFix for her left heel ulceration. The patient's medical history significant for peripheral vascular disease. The patient's daughter previously stated that Ms. Napier had undergone percutaneous revascularization of the right lower extremity and the left lower extremity by Dr. Estevan Leger. Since the patient's last visit, Ms. Napier has been receiving dressing changes of Medihoney alginate and Mepilex border 3 times per week after cleansing and irrigation with the assistance of Home Health. Today, the patient's daughter states that the Heelift boot has been ordered. PHYSICAL EXAMINATION: VITAL SIGNS: Temperature 97.9, pulse 102, respirations 17, and blood pressure 139/66. Accu-Chek 119. EXTREMITIES: The ulceration of the left heel measures approximately 0.5 x 0.6 cm. The dimensions of the wound at the time of the patient's last visit were also approximately 0.5 x 0.6 cm. Granulation tissue is present within the wound margins. No purulent drainage is associated with the wound. No erythema of the skin surrounding the wound is present. No maceration of the skin of the periwound is noted. No significant edema of the left foot is present on exam today. ASSESSMENT AND PLAN: 1. Left heel ulceration. As stated above, the patient's medical history is significant for peripheral vascular disease. Also as stated above, the patient has completed a course of treatment with EpiFix. Dressing changes of Medihoney will be discontinued. Dressing changes of Promogran followed by Mepilex border will be initiated today. These dressing changes are to be performed 3 times per week after cleansing and irrigation with the assistance of Home Health. I will see Ms. Napier again in 4 weeks. As stated above, a Heelift boot has been ordered for Ms. Napier. The patient's daughter states that the patient is awaiting delivery. I will discuss imaging of the left heel with the daughter making decisions for Ms. Napier in regard to her medical care at the time of the patient's next clinic visit. 2. Peripheral vascular disease. 3. Paroxysmal atrial fibrillation. 4. Hypertension. 5. Dementia. Job ID: [id number]
== END 2018-08-25 13:49 | disposition home or self-care (01) ==
LOC: WCC 13:48
PROVIDERS: ATTEND Family Medicine
DX: L97.429 Non-pressure chronic ulcer of left heel and midfoot with unspecified severity (principal); I73.9 Peripheral vascular disease, unspecified; I48.0 Paroxysmal atrial fibrillation; I10 Essential (primary) hypertension; F03.90 Unspecified dementia, unspecified severity, without behavioral disturbance, psychotic disturbance, mood disturbance, and anxiety
CPT/HCPCS: 36416; 97602; A4218

== ENCOUNTER 2018-09-23 13:07 | Outpatient (CLI) | payer MEDICARE, MEDICAID ==
[~2018-09-23 13:07] MED LIST changes: +Lidocaine 2% 11 ML SYR ONE
--- NOTE | 2018-09-23 14:04 | PRG ---
DATE OF SERVICE: 09/23/2018 HISTORY: Ms. Natalia Napier is a very pleasant 88-year-old, accompanied by one of her daughters, who presents to the Wound Center for evaluation of an ulceration of the left heel. The patient has received a course of treatment with EpiFix for her left heel ulceration. The patient's medical history is significant for peripheral vascular disease. The patient's daughter previously stated that Ms. Napier had undergone percutaneous revascularization of the right lower extremity and the left lower extremity by Dr. Estevan Leger. Since the patient's last visit, Ms. Napier has been receiving dressing changes of Promogran and Mepilex border three times per week after cleansing and irrigation with the assistance of Home Health. Today, the patient's daughter states that the Heelift boot should become available soon. PHYSICAL EXAMINATION: VITAL SIGNS: Temperature 98.3, pulse 83, respirations 16, and blood pressure 144/64. EXTREMITIES: The ulceration of the left heel measures approximately 0.4 x 0.4 cm. The dimensions of the wound at the time of the patient's last visit were approximately 0.5 x 0.6 cm. Granulation tissue is present within the wound margins. No purulent drainage is associated with the wound. No erythema of the skin surrounding the wound is present. No maceration of the skin of the periwound is noted. No significant edema of the left foot is present on exam today. ASSESSMENT AND PLAN: 1. Left heel ulceration. As stated above, the patient's medical history is significant for peripheral vascular disease. Also as stated above, the patient has completed a course of treatment with EpiFix. Dressing changes of Promogran followed by Mepilex border will be continued three times per week after cleansing and irrigation with the assistance of Home Health. I will see Ms. Napier again in 4 weeks. As stated above, the patient's daughter states that a Heelift boot should become available soon for Ms. Napeir. If the dimensions of the wound fail to decrease despite offloading with a Heelift boot, consideration will be given to imaging of the left heel. The patient's daughter understands and is in agreement with the preceding treatment plan. 2. Peripheral vascular disease. 3. Paroxysmal atrial fibrillation. 4. Hypertension. 5. Dementia. Job ID: [id number]
== END 2018-09-23 13:08 | disposition home or self-care (01) ==
LOC: WCC 13:07
PROVIDERS: ATTEND Family Medicine
DX: L97.429 Non-pressure chronic ulcer of left heel and midfoot with unspecified severity (principal); I73.9 Peripheral vascular disease, unspecified; I48.0 Paroxysmal atrial fibrillation; I10 Essential (primary) hypertension; F03.90 Unspecified dementia, unspecified severity, without behavioral disturbance, psychotic disturbance, mood disturbance, and anxiety
CPT/HCPCS: 97602; A4218

== ENCOUNTER 2018-10-28 13:34 | Outpatient (CLI) | payer MEDICARE, MEDICAID ==
--- NOTE | 2018-10-28 17:40 | PRG ---
DATE OF SERVICE: 10/28/2018 HISTORY: Ms. Natalia Napier is a very pleasant 88-year-old, accompanied by one of her daughters, who presents to the Wound Center for evaluation of an ulceration of the left heel. The patient has received a course of treatment with EpiFix for her left heel ulceration. The patient's medical history is significant for peripheral vascular disease. The patient's daughter previously stated that Ms. Napier had undergone percutaneous revascularization of the right lower extremity and the left lower extremity by Dr. Estevan Leger. Since the patient's last visit, Ms. Napier has been receiving dressing changes of Promogran and Mepilex Border 3 times per week after cleansing and irrigation with the assistance of Home Health. Today, the patient's daughter states that Ms. Napier has acquired a Heelift boot. The patient presents to clinic today with no dressings over her left heel. PHYSICAL EXAMINATION: VITAL SIGNS: Temperature 98.3, pulse 97, respirations 22, blood pressure 156/72. Accu-Chek 153. EXTREMITIES: The ulceration of the left heel has healed completely. ASSESSMENT AND PLAN: 1. Left heel ulceration. As stated above, the ulceration has completely healed. Ms. Napier will be discharged from clinic today with followup on a p.r.n. basis. The patient's daughter has been told that utilizing the Heelift boot will prevent any new or recurrent heel ulcerations. The patient's daughter has been told that the patient's heel should be examined daily and the Heelift boot utilized for any ecchymosis of the left heel should the patient discontinue the use of her Heelift boot now that the ulceration has completely healed. The patient's daughter understands and is in agreement with the preceding treatment plan. 2. Peripheral vascular disease. 3. Paroxysmal atrial fibrillation. 4. Hypertension. 5. Dementia. Job ID: [id number]
== END 2018-10-28 13:35 | disposition home or self-care (01) ==
LOC: WCC 13:34
PROVIDERS: ATTEND Family Medicine
DX: I73.9 Peripheral vascular disease, unspecified (principal); I48.0 Paroxysmal atrial fibrillation; I10 Essential (primary) hypertension; F03.90 Unspecified dementia, unspecified severity, without behavioral disturbance, psychotic disturbance, mood disturbance, and anxiety; Z87.2 Personal history of diseases of the skin and subcutaneous tissue
CPT/HCPCS: 36416; 97602

== ENCOUNTER 2018-12-23 15:46 | Outpatient (CLI) | payer MEDICARE, MEDICAID ==
[~2018-12-23 15:46] MED LIST changes: -Lidocaine 2% 11 ML SYR ONE
--- NOTE | 2018-12-23 16:50 | PRG ---
DATE OF SERVICE: 12/23/2018 SUBJECTIVE: Ms. Natalia Napier is a very pleasant 88-year-old, accompanied by one of her daughters, who presents to the Wound Center for evaluation of an ulceration of the left heel. At the time of the patient's visit on 10/28/2018, the ulceration of the left heel had healed completely. Today, Ms. Napier reports drainage from her left heel. The patient continues to utilize a Heelift boot over her left foot and lower leg. The daughter accompanying Ms. Napier today states that Ms. Napier, however, has not been utilizing her Heelift boot consistently. OBJECTIVE: VITAL SIGNS: Temperature 98.2, pulse 80, respirations 16, and blood pressure 159/67. EXTREMITIES: The ulceration of the left heel measures approximately 2.0 x 3.0 cm. Eschar associated with the wound was debrided with an excisional full-thickness debridement with the use of scissors. Nonviable tissue present within the wound margins was debrided with an excisional full-thickness debridement with the use of a curette. Granulation tissue is present within the wound margins. No purulent drainage is associated with the wound. No erythema of the skin surrounding the wound is present. No maceration of the skin of the periwound is noted. No significant edema of the left foot is present on exam today. ASSESSMENT AND PLAN: 1. Recurrent left heel ulceration. Dressing changes of Promogran and Mepilex Border will be initiated today. These dressing changes are to be performed 3 times per week after cleansing and irrigation with the assistance of home health. The patient has been instructed to continue to utilize her Heelift boot at all times in order to prevent any worsening of the left heel ulceration, specifically an increase in its dimensions. Arrangements will also be made for MRI of the left foot to look for findings suggestive of osteomyelitis. The patient and her daughter have been told that MRI of the left foot without contrast will be obtained. 2. Peripheral vascular disease. 3. Paroxysmal atrial fibrillation. 4. Hypertension. 5. Dementia. Job ID: [id number]
== END 2018-12-23 15:47 | disposition home or self-care (01) ==
LOC: WCC 15:46
PROVIDERS: ATTEND Family Medicine
DX: L97.429 Non-pressure chronic ulcer of left heel and midfoot with unspecified severity (principal); I73.9 Peripheral vascular disease, unspecified; I10 Essential (primary) hypertension; I48.0 Paroxysmal atrial fibrillation; F03.90 Unspecified dementia, unspecified severity, without behavioral disturbance, psychotic disturbance, mood disturbance, and anxiety
CPT/HCPCS: A4218

== ENCOUNTER 2018-12-31 10:53 | Outpatient (CLI) | payer MEDICARE, MEDICAID ==
--- NOTE | 2018-12-31 13:07 | MRI ---
MR of the leftankle without contrast INDICATION: Chronic wound of the left heel TECHNIQUE: T1, T2 fat sat, PD fat sat axial in addition to sagittal T1, T2 fat sat and coronal PD fat sat sequences were obtained of the leftankle. COMPARISON: Radiographs of the left foot dated June 17, 2018 FINDINGS: Ligaments: ATFL: Intact. PTFL: Intact. Calcaneofibular ligament: Intact. Syndesmotic ligaments: Intact. Deltoid ligament: Intact. Spring ligament: Intact. Visualized Lisfranc ligament: Intact. Tendons: Peroneal tendons: Intact without tenosynovitis. Posterior tibialis: Intact without tenosynovitis. Flexor digitorum longus: Intact without tenosynovitis. Flexor hallucis longus: Intact without tenosynovitis. Extensor hallucis longus: Intact without tenosynovitis. Tibialis anterior: Intact without tenosynovitis. Extensor digitorum longus: Intact without tenosynovitis. Achilles tendon Intact without paratenonitis. Tibiotalar joint: Talar Dome: Intact without evidence of osteochondral defect Joint effusion: None. Subtalar joint: Intact. Bones: There is a small suspected bone infarct involving the distal tibia.. Sinus Tarsi: Normal signal intensity. Plantar fascia: Normal appearing. Visualized intrinsic foot musculature: There is diffuse muscular atrophy of the intrinsic foot muscul ature. There is a superficial ulceration overlying the posterior calcaneus.. IMPRESSION: 1. Soft tissue ulceration overlying the posterior calcaneus. No overt MR signal abnormality suggest p resence of underlying osteomyelitis.
== END 2018-12-31 10:54 | disposition home or self-care (01) ==
LOC: SCSMRI 10:53
PROVIDERS: ATTEND Family Medicine
DX: S91.302A Unspecified open wound, left foot, initial encounter (principal); L97.429 Non-pressure chronic ulcer of left heel and midfoot with unspecified severity

== ENCOUNTER 2019-01-06 13:30 | Outpatient (CLI) | payer MEDICARE, MEDICAID ==
[~2019-01-06 13:30] MED LIST changes: +Lidocaine 2% PF 100 mg/5 ml Syringe ONE
--- NOTE | 2019-01-06 17:28 | PRG ---
DATE OF SERVICE: 01/06/2019 HISTORY: Ms. Natalia Napier is a very pleasant 88-year-old, accompanied by one of her daughters, who presents to the [facility] for evaluation of an ulceration of the left heel. The patient continues to utilize a Heelift boot over her left foot and lower leg. The patient also has been receiving dressing changes of Promogran and Mepilex Border 3 times per week after cleansing and irrigation with the assistance of Home Health. MRI of the left foot without contrast showed no overt MR signal abnormality suggesting the presence of underlying osteomyelitis. PHYSICAL EXAMINATION: VITAL SIGNS: Temperature 97.8, pulse 73, respirations 17, blood pressure 174/77. Accu-Chek 118. EXTREMITIES: An ulceration of the left heel is present, which measures approximately 0.5 x 0.4 cm. Granulation tissue is present within the wound margins. Nonviable tissue present within the wound margins was debrided with an excisional full-thickness debridement. No purulent drainage is associated with the wound. No erythema of the skin surrounding the wound is present. No maceration of the skin of the periwound is noted. No significant edema of the left foot is present on exam today. ASSESSMENT AND PLAN: 1. Recurrent left heel ulceration. Dressing changes of Promogran and Mepilex border will be continued 3 times per week after cleansing and irrigation with the assistance of Home Health. The patient has been instructed to continue to utilize her Heelift boot at all times. The results of the MRI of the left foot have been given to the patient and her daughter. I will see Ms. Napier again in 4 weeks. 2. Peripheral vascular disease. 3. Paroxysmal atrial fibrillation. 4. Hypertension. 5. Dementia. Job ID: [id number]
== END 2019-01-06 13:31 | disposition home or self-care (01) ==
LOC: WCC 13:30
PROVIDERS: ATTEND Family Medicine
DX: L97.429 Non-pressure chronic ulcer of left heel and midfoot with unspecified severity (principal); I73.9 Peripheral vascular disease, unspecified; I48.0 Paroxysmal atrial fibrillation; I10 Essential (primary) hypertension; F03.90 Unspecified dementia, unspecified severity, without behavioral disturbance, psychotic disturbance, mood disturbance, and anxiety
CPT/HCPCS: 36416; A4218; J2001

== ENCOUNTER 2019-01-31 12:15 | Outpatient (CLI) | payer MEDICARE, MEDICAID ==
--- NOTE | 2019-01-31 11:45 | PRG ---
DATE OF SERVICE: 01/31/2019 HISTORY: Ms. Natalia Napier is a very pleasant 88-year-old accompanied by one of her daughters, who presents to the [facility]ound Center for evaluation of an ulceration of the left heel. The patient's daughter states that Ms. Napier has not utilized her Heelift boot for approximately 1 week since the patient's last visit. The patient has been receiving dressing changes of Promogran and Mepilex Border 3 times per week after cleansing and irrigation with the assistance of Home Health. MRI of the left foot without contrast obtained recently showed no overt MR signal abnormality suggesting the presence of underlying osteomyelitis. MRI was obtained on 12/31/2018. PHYSICAL EXAMINATION: VITAL SIGNS: Temperature 97.9, pulse 101, respirations 16, and blood pressure 181/77. Accu-Chek 135. EXTREMITIES: An ulceration of the left heel is present, which measures approximately 0.5 x 0.5 cm. The depth of the wound is approximately 0.5 cm. Granulation tissue is present within the wound margins. Nonviable tissue present within the wound margins was debrided with an excisional full-thickness debridement with the use of scissors and a curette. No erythema of the skin surrounding the wound is present. No maceration of the skin of the periwound is noted. No significant edema of the left foot is present on exam today. ASSESSMENT AND PLAN: 1. Recurrent left heel ulceration. Dressing changes of Promogran and Mepilex Border will be continued 3 times per week after cleansing and irrigation with the assistance of Home Health. Arrangements will be made for the home delivery of Santyl. Once Santyl becomes available, the patient is to receive dressing changes on a daily basis after cleansing and irrigation with the assistance of Home Health. The patient has been instructed to continue to utilize her Heelift boot at all times. I will see Ms. Napier again in 2 weeks. 2. Peripheral vascular disease. 3. Paroxysmal atrial fibrillation. 4. Hypertension. 5. Dementia. Job ID: [id number]
[2019-01-31] MEDS ORDERED: Sodium Chloride 0.9% 15 ML NEB ONE (16:49)
[2019-01-31] MEDS ORDERED: Lidocaine 2% PF 100 mg/5 ml Syringe ONE (16:49)
== END 2019-01-31 12:16 | disposition home or self-care (01) ==
LOC: WCC 12:15
PROVIDERS: ATTEND Family Medicine
DX: L97.429 Non-pressure chronic ulcer of left heel and midfoot with unspecified severity (principal); I73.9 Peripheral vascular disease, unspecified; I48.0 Paroxysmal atrial fibrillation; I10 Essential (primary) hypertension; F03.90 Unspecified dementia, unspecified severity, without behavioral disturbance, psychotic disturbance, mood disturbance, and anxiety
CPT/HCPCS: 36416; A4218; J2001

== ENCOUNTER 2019-02-14 11:23 | Outpatient (CLI) | payer MEDICARE, MEDICAID ==
--- NOTE | 2019-02-14 12:30 | PRG ---
DATE OF SERVICE: 02/14/2019 HISTORY: Ms. Natalia Napier is a very pleasant 88-year-old, accompanied by one of her daughters, who presents to the [facility]ound Center for evaluation of an ulceration of the left heel. The patient has been receiving dressing changes of Santyl on a daily basis after cleansing and irrigation with the assistance of Home Health. MRI of the left foot without contrast obtained recently showed no overt MR signal abnormality suggesting the presence of underlying osteomyelitis. MRI was obtained on 12/31/2018. PHYSICAL EXAMINATION: VITAL SIGNS: Temperature 98.1, pulse 100, respirations 19, blood pressure 156/71, and Accu-Chek 118. EXTREMITIES: An ulceration of the left heel is present, which measures approximately 0.3 x 0.5 cm. The depth of the wound is approximately 0.6 cm. Granulation tissue is present within the wound margins. Nonviable tissue present within the wound margins was debrided with an excisional full-thickness debridement with the use of scissors and a curette. Post debridement measurements were approximately 0.4 x 0.2 cm. No erythema of the skin surrounding the wound is present. No maceration of the skin of the periwound is noted. No significant edema of the left foot is present on exam today. The dimensions of the wound at the time of the patient's last visit on 01/31/2019 were approximately 0.5 x 0.5 cm. ASSESSMENT AND PLAN: 1. Recurrent left heel ulceration. Dressing changes of Santyl will be continued on a daily basis after cleansing and irrigation with the assistance of Home Health. Consideration was given to dressing changes of Hydrofera Blue in conjunction with Santyl. However, I have explained to the patient and her daughter that in view of the decreasing dimensions of the wound and the improved appearance of the wound, the addition of Hydrofera Blue at the present time does not seem warranted. The patient has been reminded to continue to utilize her Heelift boot at all times. The patient has been asked to schedule an appointment in the Wound Center for 2 to 4 weeks. The patient and her daughter understand and are in agreement with the preceding treatment plan. 2. Paroxysmal atrial fibrillation. 3. Peripheral vascular disease. 4. Hypertension. 5. Dementia. Job ID: [id number]
[2019-02-14] MEDS ORDERED: Lidocaine 2% PF 100 mg/5 ml Syringe ONE (16:31)
[2019-02-14] MEDS ORDERED: Sodium Chloride 0.9% 15 ML NEB ONE (16:31)
== END 2019-02-14 11:24 | disposition home or self-care (01) ==
LOC: WCC 11:23
PROVIDERS: ATTEND Family Medicine
DX: L97.429 Non-pressure chronic ulcer of left heel and midfoot with unspecified severity (principal); I73.9 Peripheral vascular disease, unspecified; I10 Essential (primary) hypertension; F03.90 Unspecified dementia, unspecified severity, without behavioral disturbance, psychotic disturbance, mood disturbance, and anxiety; I48.0 Paroxysmal atrial fibrillation
CPT/HCPCS: 36416; A4218; J2001

== ENCOUNTER 2019-08-06 04:43 | Emergency (ER) | payer MEDICARE, MEDICAID ==
--- NOTE | 2019-08-06 07:59 | CT ---
CT PELVIS PERFORMED WITHOUT CONTRAST ENHANCEMENT: Date: 08/06/2019 HISTORY: Fall. Complaining of right hip pain. COMPARISON: 04/29/2017 exam. FINDINGS: Visualized intrapelvic contents appear unremarkable. No free fluid is demonstrated. Deformity along the right side of the sacrum is a stable finding as compared to the prior examination . Arthritic change of the SI joints is present. Old right superior and inferior pubic rami fractures are present. No acute fractures of the pelvic ri ng are seen. There is some mild arthritic change of both hips. No fracture is identified. IMPRESSION: No evidence of acute fracture. POS: [facility]
--- NOTE | 2019-08-06 08:35 | RAD ---
RIGHT HIP 2 VIEWS: Date: 08/06/2019 HISTORY: Patient fell off bed. COMPARISON: Previous CT examination from 2018. FINDINGS: Bones are demineralized. Old right superior and inferior pubic rami fractures are noted. Arthritic ch anges of the hip. No acute process. IMPRESSION: No acute changes. POS: [facility]
== END 2019-08-06 06:52 | disposition home or self-care (01) ==
LOC: ERS 04:43
DX: S70.01XA Contusion of right hip, initial encounter (principal); J44.9 Chronic obstructive pulmonary disease, unspecified; I48.91 Unspecified atrial fibrillation; I10 Essential (primary) hypertension; E11.9 Type 2 diabetes mellitus without complications; Z87.891 Personal history of nicotine dependence; Z79.82 Long term (current) use of aspirin; Z79.84 Long term (current) use of oral hypoglycemic drugs; Z79.899 Other long term (current) drug therapy; W01.0XXA Fall on same level from slipping, tripping and stumbling without subsequent striking against object, initial encounter
CPT/HCPCS: 72192

== ENCOUNTER 2019-09-16 18:23 | Observation (INO) | payer MEDICARE, MEDICAID ==
--- NOTE | 2019-09-16 18:46 | CT ---
CT head noncontrast HISTORY: Altered mental status. Level 1 stroke. COMPARISON: 05/08/2017. FINDINGS: There is no evidence of acute intracranial hemorrhage or infarct. Chronic ischemic small ve ssel disease is again demonstrated throughout the periventricular white matter of each cerebral hemisphere. There is no mass effect or shift of midline structures. Prominent calcification throughout the arterial structures. IMPRESSION : Atherosclerosis and other chronic-type findings appear stable. No acute intracranial abnormalities ar e demonstrated. Findings were called to Dr. Back in the emergency department at 1840 hours. Code CR
[2019-09-16 18:49] LABS: #Basophils 0.1 thou/uL (0.0-0.2); #Eosinphils 0.1 thou/uL (0.0-0.7); #Lymphocytes 2.8 thou/uL (1.20-3.40); #Monocytes 0.7 thou/uL (0.11-0.59); #Neutrophils 3.7 thou/uL (1.40-6.50); %Basophils 1.4 % (0.0-1.0); %Eosinophils 1.5 % (0.0-10.0); %Lymphocytes 38.3 % (21.0-51.0); %Monocytes 9.1 % (0.0-10.0); %Neutrophils 49.7 % (42.0-75.0); Hemoglobin 10.7 g/dL (12.0-16.0); Mean Corpuscular HGB CONC 33.1 g/dL (32.0-36.0); Mean Corpuscular Hemoglobin 28.1 pg (27.0-31.0); Mean Corpuscular Volume 84.7 fL (78.0-98.0); Mean Platelet Volume 10.2 fL (7.4-10.4); Platelet Count 166 thou/uL (130-400); RBC Distribution Width 13.2 % (11.5-14.5); Red Blood Cell (RBC) Count 3.82 mill/uL (4.20-5.40); White Blood Cell (WBC) Count 7.4 thou/uL (4.8-10.8)
[2019-09-16 18:55] LABS: PTT 27.9 sec (22.9-36.1); Prothrombin Time 13.2 sec (12.0-14.7)
[2019-09-16 19:09] LABS: ALT (SGPT) 12 U/L (8-55); AST (SGOT) 23 U/L (5-34); Albumin 4.1 g/dL (3.4-4.8); Alkaline Phosphatase 69 U/L (40-110); Anion Gap 16 mmol/L (10-20); BUN (Urea Nitrogen) 67 mg/dL (9.8-20.1); Bilirubin, Total 0.3 mg/dL (0.2-1.2); CK (CPK) 94 U/L (29-168); Calc. Creatinine Clearance 0 mL/min (70-130); Calcium 9.8 mg/dL (7.8-10.44); Carbon Dioxide 24 mmol/L (23-31); Chloride 101 mmol/L (98-107); Estimated GFR-MDRD 34; Globulin 3.7 g/dL (2.4-3.5); Glucose 119 mg/dL (83-110); Potassium 4.5 mmol/L (3.5-5.1); Protein, Total 7.8 g/dL (6.0-8.3); Sodium 136 mmol/L (136-145)
[2019-09-16 19:25] LABS: CKMB 1.1 ng/mL (0-6.6)
[2019-09-16 19:30] LABS: PTT 27.2 sec (22.9-36.1)
--- NOTE | 2019-09-16 19:38 | RAD ---
Left ankle 3 views HISTORY: Ankle pain. FINDINGS: Ankle mortise and talar dome are intact. Osseous structures are demineralized. Nonaggressive calcific density projects through the distal tibial medullary cavity. Gas is present within a soft tissue defect at the posterior aspect of the humeral. No underlying aggr essive osseous destruction. There are degenerative changes throughout the hindfoot and midfoot. IMPRESSION : Area of soft tissue ulceration at the posterior aspect of the heel. No underlying osseous destruction . Atherosclerosis.
--- NOTE | 2019-09-16 19:42 | RAD ---
Chest one view HISTORY: Dyspnea. COMPARISON: 10/05/2017. FINDINGS: Cardiac silhouette is projection. Mediastinum and aortic calcification. Lungs are well-inflated. No confluent airspace consolidation or evidence of pneumothorax. Old right rib fractures are again demonstrated. conveyor monitor leads overlie the chest. IMPRESSION : Atherosclerosis. Chronic-type findings are stable.
[2019-09-16 19:49] LABS: Bilirubin Negative (Negative); Blood, Urine Negative (Negative); Clarity Clear (Clear); Glucose, Urine (Dipstick) Normal (Negative); Ketone, Urine Negative (Negative); Leukocyte Negative Leu/uL (Negative); Nitrite Negative (Negative); Protein, Urine (Dipstick) Negative (Neg-Trace); Specific Gravity, Urine 1.019 (1.002-1.036); Urobilinogen Normal mg/dL (Less than 2); pH, Urine 5.5 (5.0-9.0)
[2019-09-16] MEDS ORDERED: Aspirin Chewable 81 MG TAB ONE (22:14)
--- NOTE | 2019-09-16 22:24 | RAD ---
Left knee 4 views HISTORY: Left knee pain. FINDINGS: Joint spaces are preserved. Minimal osteophytosis. Osseous structures are markedly deminera lized. No acute fracture, dislocation, or fluid distention of the suprapatellar bursa. Sclerotic infarct is present within the bone marrow of the distal femoral shaft. Prominent calcification throughout the arterial structures. IMPRESSION : No acute osseous abnormalities are demonstrated. Osteoporosis. Atherosclerosis.
[2019-09-16] MEDS ORDERED: Senokot S 8.6-50 MG TAB PO PRN (23:00)
[2019-09-16] MEDS ORDERED: Acetaminophen 325 MG TAB PO PRN (23:00)
--- NOTE | 2019-09-16 23:02 | ULT ---
Venous duplex sonogram left lower extremity HISTORY: Left leg pain and edema. FINDINGS: The left common femoral vein and greater saphenous junction along with the femoral, deep fe moral, popliteal, and posterior tibial veins. There is good color and spectral Doppler flow, compression, and augmentation. IMPRESSION : Normal exam.
[2019-09-16 23:41] LABS: Troponin I 0.014 ng/mL (< 0.028)
[2019-09-17 01:53] VITALS: BMI 19.4
[2019-09-17 01:58] LABS: #Basophils 0.1 thou/uL (0.0-0.2); #Lymphocytes 1.3 thou/uL (1.20-3.40); #Monocytes 0.4 thou/uL (0.11-0.59); #Neutrophils 4.9 thou/uL (1.40-6.50); %Basophils 1.1 % (0.0-1.0); %Eosinophils 0.4 % (0.0-10.0); %Lymphocytes 18.8 % (21.0-51.0); %Monocytes 6.1 % (0.0-10.0); %Neutrophils 73.5 % (42.0-75.0); Hemoglobin 10.4 g/dL (12.0-16.0); Mean Corpuscular HGB CONC 31.6 g/dL (32.0-36.0); Mean Corpuscular Hemoglobin 27.4 pg (27.0-31.0); Mean Corpuscular Volume 86.8 fL (78.0-98.0); Mean Platelet Volume 9.7 fL (7.4-10.4); Platelet Count 150 thou/uL (130-400); RBC Distribution Width 13.2 % (11.5-14.5); Red Blood Cell (RBC) Count 3.81 mill/uL (4.20-5.40); White Blood Cell (WBC) Count 6.6 thou/uL (4.8-10.8)
[2019-09-17 02:12] LABS: Hemoglobin A1c 6.3 % (4.0-6.0)
[2019-09-17] MEDS ORDERED: traMADol HCl 50 MG TAB PO PRN (02:24)
[2019-09-17] MEDS ORDERED: HumaLOG 300 UNITS/3 ML VIAL SC PRN ×2 (02:28)
[2019-09-17] MEDS ORDERED: Dextrose 50% Abboject 50 ML SYRINGE SLOW IVP PRN (02:28)
[2019-09-17] MEDS ORDERED: Dextrose 5% in Water 1,000 ML IV PRN (02:28)
[2019-09-17 02:35] LABS: Troponin I 0.011 ng/mL (< 0.028)
[2019-09-17 02:43] LABS: ALT (SGPT) 12 U/L (8-55); AST (SGOT) 23 U/L (5-34); Alkaline Phosphatase 64 U/L (40-110); Anion Gap 14 mmol/L (10-20); BUN (Urea Nitrogen) 59 mg/dL (9.8-20.1); Bilirubin, Total 0.3 mg/dL (0.2-1.2); Calc. Creatinine Clearance 27 mL/min (70-130); Calcium 9.7 mg/dL (7.8-10.44); Carbon Dioxide 24 mmol/L (23-31); Cardiac Risk 2.7 (Less than 4.5); Chloride 103 mmol/L (98-107); Cholesterol 206 mg/dl (< 200 Desired); Estimated GFR-MDRD 42; Globulin 3.6 g/dL (2.4-3.5); Glucose 145 mg/dL (83-110); HDL Cholesterol 77 mg/dL (>60 Neg Risk); LDL Cholesterol, Calculated 119 mg/dL; Potassium 4.8 mmol/L (3.5-5.1); Protein, Total 7.6 g/dL (6.0-8.3); Sodium 136 mmol/L (136-145); Triglycerides 49 mg/dL (Less than 150)
--- NOTE | 2019-09-17 04:39 | HP ---
PRIMARY CARE PHYSICIAN: PCP is in [place]. CHIEF COMPLAINT: Left leg pain. HISTORY OF PRESENT ILLNESS: Ms. Napier is an 89-year-old female, who was brought to the emergency room today by her daughter after complaining of left leg pain for the last two days. Daughter reports that she is more difficult to help assist to get out of bed or get out of the chair to a standing position and has been complaining that the left leg is much weaker and is painful. She reports that she had been treated for an ulceration on the left heel, but she was discharged from Wound Care this past Thursday. Daughter reports that the Wound Care doctor told them that it was healed. So, when the patient started having leg pain, she became concerned and wanted us to have her evaluated. She was in the triage gallegos in the emergency room today, when she was answering questions and then all of a sudden she stopped responding to any commands. They made her a stroke alert. She did have a CT of the brain, which did not show any acute findings. She remained like this for about 30 minutes in the emergency room and then she started coming around and started responding to commands into her daughter. Daughter reports that she has had cataract surgery on the right eye, but her vision has not been the same since the surgery. Reports that she may have had a reaction to the medication drops that she was supposed to put in them and so she has not gone for the cataract removal of her left eye. She denies any injury or falls. Denies any other complaints. Denies any nausea, vomiting, or diarrhea. Denies any trauma or injury that might account for some of the left leg pain. She reports that she lives in [place] in her house and they have enough family, where they arrange 24-hour, 7-day a week care for her. Daughter was primarily worried about a possible DVT in the left leg, which is what she primarily wanted when they got here prior to this episode where she kind of became unresponsive for about 30 minutes. She had ultrasound of the left leg, which showed no DVT. Past medical history is pertinent for COPD, atrial fibrillation, constipation, hypertension, and diabetes, type 2. Her creatinine is bumped on this visit and the ER doctor ordered a liter of fluids. So, we will recheck her lab in the morning. She will be admitted to the stroke unit for further management. REVIEW OF SYSTEMS: The patient reports left leg pain, weakness, trouble ambulating, normally uses a walker but daughter says that over the last couple of weeks, she is much more weak and has not been able to ambulate very well even with a walker. Denies any fever, chills, cough, nausea, vomiting, abdominal pain, injury, or trauma. All systems are reviewed and are negative unless mentioned in the HPI. PAST MEDICAL HISTORY: See HPI. SURGICAL HISTORY: Right cataract removal. PSYCHIATRIC HISTORY: None. SOCIAL HISTORY: Lives in her house in [place] and has family that takes care of her 22/09. She is a former tobacco smoker and stopped smoking more than 10 years ago. ALLERGIES: NONE. CURRENT MEDICATIONS: 1. Clopidogrel 75 mg p.o. once a day. 2. Centrum 1 tab once a day. 3. Aspirin 81 mg p.o. once a day. 4. Amlodipine 2.5 mg once a day. 5. Metformin 500 mg once a day. 6. Metoprolol 25 mg p.o. b.i.d. 7. Lasix 40 mg p.o. once a day. PHYSICAL EXAMINATION: VITAL SIGNS: Blood pressure 147/69, pulse is 80, respiratory rate is 20, pO2 sats are 97% on room air, and temp is 98.1. CONSTITUTIONAL: The patient is nontoxic appearing. She responds to most questions, although she finds it hard to follow commands. HEENT: Head is atraumatic and normocephalic. Eyes, pupils are equally round and reactive to light. She has decreased vision, especially her peripheral vision on the right side. ENT; mouth exam is normal. Mucous membranes are moist. NECK: Normal range of motion. Trachea is midline. RESPIRATORY/CHEST: Breath sounds are clear. Chest movement is symmetrical. CARDIOVASCULAR: Regular heart rate and rhythm. Heart sounds are normal. ABDOMEN: Nontender. Bowel sounds are heard. BACK: Normal range of motion. No tenderness. EXTREMITIES: Upper extremity; normal inspection. Normal range of motion. Lower extremity; normal range of motion. Strength is normal. She does have a small soft tissue ulcer on the left heel and has a boot on that left heel. NEURO: She has difficulty following commands. Does move all extremities. Can hold up both legs for at least 5 seconds and has decreased vision in the right eye, although daughter reports that is baseline. LABORATORY DATA: EKG in the emergency room shows sinus rhythm with beats per minute of 86. T-waves are normal. [place] is normal. ST segments are normal. BUN is 67, creatinine is 1.7, estimated GFR is 34, and glucose is 119. Hemoglobin A1c is 6.3. Troponin initially was in the indeterminate range of 0.043, second one is negative. CBC with a white blood cell count of 6.6, hemoglobin 10.4, hematocrit is 33.1, and platelet count is 150. INR is 1. Urine was unremarkable. ASSESSMENT AND PLAN: 1. Altered mental status with leg pain and weakness. We will go ahead and order an echocardiogram, MRI of the brain, and carotid Doppler. Have PT, OT, and Speech evaluate the patient. The patient passed her bedside dysphagia screen. I will add neuro checks q.4. We will check fasting lipids and TSH. 2. History of diabetes, on metformin. We will add Accu-Cheks a.c. and at bedtime, sliding scale for coverage. We will restart her home medications prior to discharge. 3. History of hypertension. We will restart her home medications. 4. Left leg pain. Ultrasound and x-rays were unremarkable. We will add pain medication and monitor. 5. Acute kidney injury with a BUN in the fact that the patient is on anticoagulants, we will go ahead and collect her stool sample and test it for occult blood. She may be dehydrated. We will recheck her CBC and keep a close eye on that. 6. History of dementia. The patient's daughter was very concerned that she would try to get out of bed and so she asked to stay with her, which Dr. Perry agreed to. If possible, we would have to provide a sitter in order for the family to feel safe that she can stay. 7. History of atrial fibrillation. We will continue patient's Plavix. 8. Deep venous thrombosis and gastrointestinal prophylaxis started. 9. Case discussed with Dr. Perry, who agrees with plan. 10. Hospital course dependent on clinical findings. Job ID: [id number]
--- NOTE | 2019-09-17 08:52 | ULT ---
CAROTID ULTRASOUND: DATE: 09/17/2019 COMPARISON: None. HISTORY: TIA. TECHNIQUE: Multiplanar Perla scale and color Doppler images were obtained in a carotid ultrasound. Spectral laura sis of the Doppler waveforms were performed. FINDINGS: No significant plaque is visualized in either internal or common carotid artery. The Doppler waveform s are normal bilaterally. Peak systolic velocity in the right ICA is 63 cm/second. Peak systolic velocity in the right CCA is 9 7 cm/second. The right ICA/CCA ratio is 0.7. Peak systolic velocity in the left ICA is 48 cm/second. Peak systolic velocity in the left CCA is 83 cm/second. The left ICA/CCA ratio is 0.6. Both vertebral arteries demonstrate antegrade flow without focal stenosis. IMPRESSION: No evidence of hemodynamically significant stenosis. POS: [facility]
[2019-09-17] MEDS ORDERED: Heparin 5,000 UNITS/ML VIAL SC SCH (09:00)
[2019-09-17] MEDS ORDERED: Acetaminophen 500 MG TAB PO PRN (09:02)
[2019-09-17] MEDS ORDERED: Bisacodyl 10 MG SUPP PR PRN (09:02)
[2019-09-17] MEDS: Amlodipine 5 MG TAB PO SCH (09:40)
[2019-09-17] MEDS: Furosemide 40 MG TAB PO SCH (09:40)
[2019-09-17] MEDS: Aspirin Chewable 81 MG TAB PO SCH (09:40)
[2019-09-17] MEDS: Metoprolol Tartrate 25 MG TAB PO SCH ×2 (09:40→21:10)
[2019-09-17] MEDS: Multivitamin W/ Minerals 1 TAB PO SCH (09:40)
[2019-09-17] MEDS: Famotidine 20 MG TAB PO SCH ×2 (09:40→21:10)
[2019-09-17] MEDS: Clopidogrel Bisulfate 75 MG TAB PO SCH (09:40)
[2019-09-17] MEDS: Polyethylene Glycol 3350 17 GM Packet PO SCH (09:40)
--- NOTE | 2019-09-17 13:05 | MRI ---
EXAM: MRI of the brain without contrast HISTORY: Generalized weakness COMPARISON: None TECHNIQUE: Multiplanar multisequence MR images were obtained of the brain without IV contrast. FINDINGS: Scattered foci of high T2/FLAIR signal in the subcortical and periventricular white matter are likely secondary to small vessel ischemic disease. No restricted diffusion. No hydronephrosis. No extra-axial fluid collection or intracranial hemorrhage. The expected flow voids are present. Corpus callosum, pituitary, and craniocervical junction are within normal limits. The calvarium and overlying soft tissues are unremarkable. The paranasal sinuses and mastoid air cells are well aerated. IMPRESSION: No evidence of acute intracranial abnormality.
--- NOTE | 2019-09-17 18:20 | PDOC.EVN ---
Event Note - Event Note Event Note: Seen and examined with daughter at bedside. No further episodes of altered mental status. She is on the appropriate CVA rule out workup. I believe or symptoms are likely secondary to mild dehydration with creatinine of 1.7 on arrival, down trending 1.4 after IV fluids. She is alert and oriented and cooperative this a.m. Discussed with daughter at length.
[2019-09-18 07:58] VITALS: BP 115/58; TEMP 97.9
[2019-09-18] MEDS ORDERED: metFORMIN 500 MG TAB PO SCH (08:00)
[2019-09-18] MEDS: Clopidogrel Bisulfate 75 MG TAB PO SCH (08:33)
[2019-09-18] MEDS: Metoprolol Tartrate 25 MG TAB PO SCH (08:33)
[2019-09-18] MEDS: Polyethylene Glycol 3350 17 GM Packet PO SCH (08:33)
[2019-09-18] MEDS: Multivitamin W/ Minerals 1 TAB PO SCH (08:33)
[2019-09-18] MEDS: Amlodipine 5 MG TAB PO SCH (08:33)
[2019-09-18] MEDS: Aspirin Chewable 81 MG TAB PO SCH (08:33)
[2019-09-18] MEDS: Furosemide 40 MG TAB PO SCH (08:33)
[2019-09-18] MEDS: Famotidine 20 MG TAB PO SCH (08:38)
--- NOTE | 2019-09-19 02:07 | DIS ---
DATE OF ADMISSION: 09/16/2019 DATE OF DISCHARGE: 09/18/2019 REASON FOR HOSPITALIZATION: Altered mental status. SIGNIFICANT FINDINGS: The patient was found to have acute kidney injury with altered mental status. PROCEDURES PERFORMED AND TREATMENTS RENDERED: The patient initially presented to [facility] in [place] on 09/16/2019 with a complaint of leg pain, please see full history and physical for details. In the emergency department, the patient had an episode in which she was less responsive and she was admitted for stroke workup. With an episode of altered mental status and less awareness, she had a complete and thorough evaluation for acute stroke, please see full radiographic reports and laboratory data for details. The patient had an MRI of her brain, please see full report for details, there was no acute cerebrovascular accident identified on MRI of the brain or other acute pathology. The patient had an echocardiogram, please see full report for details, the patient with a reduced ejection fraction, which is known to them for which she takes Lasix and otherwise, the patient had a sclerotic aortic valve. The patient was recommended to follow up with Cardiology in the outpatient setting in the next 1 to 2 months for further evaluation on this. The patient had a carotid ultrasound study, please see full report for details, there was no hemodynamically significant stenosis bilaterally. The patient was identified to have acute kidney injury present on admission with creatinine of 1.70 on admission. With IV fluid resuscitation, the patient's renal function did downtrend to 1.40, and she was recommended to stay well hydrated in the outpatient setting. I explicitly informed the patient and her daughter that fluid status is delicate at this age with congestive heart failure and she must keep tabs on how much fluid she drinks and consult with her primary care physician and geophysical support specialist on taking Lasix. They understand this and the daughter at bedside, who is primary access assoc thinks that she might have gone a couple of days with reduced water intake in the setting of Lasix, which caused dehydration. I gave the patient and family member strategies on how to avoid dehydration and keeping up with logs on how much liquid she drinks in a day in addition to daily weights to avoid volume overload on the contrast side. The patient and family understand the importance of fluid management and we will keep closer watch over how much fluid she is drinking daily. With the patient's symptoms resolving completely and no further episodes while she was in the acute care hospital, she was recommended safe for discharge. The patient having negative stroke workup, altered mental status secondary to dehydration and acute kidney injury present on admission. The patient was recommended safe for discharge with followup with primary care physician in the next 5 to 7 days and follow up with Cardiology in the next 1 to 2 months. CONDITION ON DISCHARGE: Stable. SPECIFIC INSTRUCTIONS FOR THE PATIENT/FAMILY: 1. The patient recommended to have a consistent and adequate oral intake of free water starting at 1.5 L, this may need to be adjusted by primary care physician or geophysical support specialist in the outpatient setting. 2. The patient recommended to have daily weights and keep a log of this. 3. The patient recommended to take all home medications as directed, to be re-evaluated by primary care physician and Cardiology in the outpatient setting. 4. The patient recommended to follow up with primary care physician in the next 5 to 7 days. 5. The patient recommended to follow up with Cardiology in the next 1 to 2 weeks. 6. The patient recommended to follow all previously mentioned steps explicitly or return to acute care hospital immediately if she is unable to comply with the steps. 7. The patient recommended to return to acute care hospital immediately if any signs or symptoms return, worsen, or any other new symptoms occur. TIME SPENT: Greater than 39 minutes spent coordinating care and discharge process. More than 50% of this time was spent directly [id number] with the patient and her daughter at bedside. Job ID: [id number]
== END 2019-09-18 10:41 | disposition home or self-care (01) ==
LOC: ERS 18:23 → 2SE 22:02
PROVIDERS: ADMIT Internal Medicine; ATTEND Internal Medicine
DX: N17.9 Acute kidney failure, unspecified (principal); J44.9 Chronic obstructive pulmonary disease, unspecified; I48.91 Unspecified atrial fibrillation; I10 Essential (primary) hypertension; E11.9 Type 2 diabetes mellitus without complications; M81.0 Age-related osteoporosis without current pathological fracture; Z79.82 Long term (current) use of aspirin; Z79.84 Long term (current) use of oral hypoglycemic drugs; Z79.899 Other long term (current) drug therapy; Z87.891 Personal history of nicotine dependence
CPT/HCPCS: 36415; 36416; 51701; 70450; 70551; 71045; 80053; 80061; 81003; 82550; 82553; 83036; 83605; 84443; 84484; 85025; 85610; 85730; 87040; 93005; 93306; 93880; 94760; 96360; G0378